=== PATIENT | male | born 1940 | race Caucasian/White ===

== ENCOUNTER 2021-07-25 19:09 | Emergency (ER) | payer MEDICARE, OTHER, SELFPAY ==
[2021-07-25] VITALS (14 sets, daily range): BP systolic 136–156; BP diastolic 63–73; PULSE 58–143; RESP 11–20; TEMP 36.4–36.5; O2SAT 93–100
--- NOTE | ~2021-07-25 | CT_ITS ---
EXAMINATION: CT cervical spine wo con DATE: 07/25/2021 20:39 INDICATION: Neck pain post head injury TECHNIQUE: Computed tomography (CT) of the cervical spine was performed without intravenous contrast. Automated exposure control and iterative reconstruction technique were employed. The dose-length pro duct was 527.26 mGy-cm. COMPARISON: None FINDINGS: Alignment is normal. Anterior fusion at C6-C7. Posterior fusion on the right at C6-C7 and on the left at C5-C6. Vertebral body heights are normal. No acute fracture. Severe disc height loss at C4-C5. Mo derate disc height loss at the remaining cervical levels as well as at C7-T1 through T2-T3. Large ant erior endplate osteophytes from C2 through T3. Multilevel disc bulges and posterior disc osteophyte c omplexes throughout the cervical spine resulting in multilevel mild central canal stenosis. There is also moderate to severe uncovertebral and facet osteoarthritis throughout the cervical spine result i n moderate to severe neural foraminal stenosis on the right at C7-T1, moderate neural foraminal steno sis on the left at C3-C4 and C5-C6 and on the right at C4-C5 and mild throughout the remainder of the cervical spine. Atherosclerotic calcifications at the bilateral carotid bulbs. Cervical soft tissues are otherwise unremarkable. Mild emphysema at the apices of the lungs. IMPRESSION: 1. Severe cervical spondylosis. No acute osseous abnormality. Reviewed, dictated and finalized at location A. TRICIAN APPRENTICE
--- NOTE | ~2021-07-25 | CT_ITS ---
EXAMINATION: CT brain wo con DATE: 07/25/2021 20:39 INDICATION: Fall with posterior head injury TECHNIQUE: Computed tomography (CT) of the head was performed without intravenous contrast. Sagittal and coronal reconstructions were performed. The mA was adjusted according to patient size. Iterative reconstruction technique was employed. The dose-length product was 681.00 mGy-cm. COMPARISON: None FINDINGS: No fracture. 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 No acute intracranial hemorrhage, acute infarction or abnormal extra axial fluid collection. There is mild scattered white matter hypoattenuation consistent with chronic small vessel ischemic disease. Ventricles are normal and symmetric. No mass/mass effect. Multiple small foci of likely intravenous gas at the bilateral ca vernous sinus. Intracranial calcified cerebral atherosclerosis is noted. Changes of bilateral intraoc ular lens replacement. The orbits, paranasal sinuses and mastoid air cells are normal. IMPRESSION: 1. Small amount of likely intravenous gas at the cavernous sinus which may be related to intravenous catheter placement. Correlate with clinical history. 2. No fracture or acute intracranial process. 3. Small old lacunar infarct at the right peritrigonal white matter. Reviewed, dictated and finalized at location A. T OFFICER IMPRESSION: 1. Small amount of likely intravenous gas at the cavernous sinus which may be r elated to intravenous catheter placement. Correlate with clinical history. 2. No fracture or acute intracranial process. 3. Small old lacunar infarct at the right peritrigonal white matter.
--- NOTE | ~2021-07-25 | CT_ITS ---
EXAMINATION: CT thoracic spine wo con DATE: 07/25/2021 20:43 INDICATION: Thoracic spine pain post injury TECHNIQUE: Computed tomography (CT) of the thoracic spine was performed without intravenous contrast. Automated exposure control and iterative reconstruction technique were employed. The dose-length pro duct was 1460.10 mGy-cm. COMPARISON: None FINDINGS: Mild thoracic dextrocurvature. Sagittal alignment is normal. Anterior fusion at C6-C7. Vertebral body heights are normal. No acute fracture. Prominent anterior osteophytes throughout the thoracic, lower cervical and upper lumbar spine with solid anterior fusion from T4 through L2 consistent with diffus e idiopathic skeletal hyperostosis (DISH). Mild to moderate disc height loss throughout the thoracic spine. Multilevel moderate bilateral thoracic facet osteoarthritis. Mild central canal stenosis resul ting from small posterior endplate osteophytes and/or facet osteoarthritis at several levels in the t horacic spine most prominent at T11-T12. Multiple old right-sided rib fractures. Mild emphysema and m ild mosaic attenuation throughout both lungs consistent with subsegmental air trapping related to sma ll airway disease. Mild paravertebral atelectasis/scarring along the posterior medial right lower lob e adjacent to an likely related to the prominent endplate osteophytes. Atherosclerotic coronary arter y calcifications. Thoracic aorta is normal in caliber. No pathologically enlarged lymphadenopathy in the visualized thorax or upper abdomen. Couple hepatic calcific lesions consistent with old granuloma tous disease. Bilateral adrenal glands, pancreas and visualized portions of the gallbladder, spleen a nd left kidney are normal. 1.3 cm low-density right renal cyst. IMPRESSION: 1. Multiple old right rib fractures. No acute osseous abnormality. 2. Moderate thoracic spondylosis with bridging osteophytes from T4 through L2 consistent with diffuse idiopathic skeletal hyperostosis (DISH). Reviewed, dictated and finalized at location A. ITE CARE PROVIDER IMPRESSION: 1. Multiple old right rib fractures. No acute osseous abnormality. 2. Moderate thoracic spondylosis with bridging osteophytes from T4 through L2 c onsistent with diffuse idiopathic skeletal hyperostosis (DISH).
[2021-07-25 19:43] LABS: Glucose Point of Care 214 mg/dl (65-105)
--- NOTE | 2021-07-25 19:57 | ED.FALL ---
HPI - Fall General Chief Complaint: Fall Stated Complaint: fall Time Seen by Provider: 07/25/21 19:14 Source: patient Mode of arrival: ambulatory Limitations: no limitations History of Present Illness HPI Narrative: Patient is a 80-year-old male complaining of head, neck and upper back pain, 8 out of 10, dull, nonradiating after he missed a step going down 3 step stairs prior to arrival. Patient states that he has Parkinson's and his gait is usually unsteady and that is the reason why he fell. Patient denies any loss of consciousness. Patient states that he was able to stand up with the help of his and ambulate after the fall. Patient denies any symptoms prior to the fall. Patient denies any chest pain, abdominal pain, pelvic pain, hip pain or any other extremity pain/injury. Related Data Allergies Allergy/AdvReac Type Severity Reaction Status Date / Time No Known Allergies Allergy Verified 07/25/21 19:44 Review of Systems Review of Systems: All systems reviewed & are unremarkable except as noted in HPI and below Constitutional: Constitutional: Denies body ache(s), Denies chills, Denies excessive sweating, Denies fatigue, Denies fever(s), Denies headache(s), Denies lethargy, Denies malaise, Denies weakness and Denies weight loss Eyes: Eyes: Denies blurry vision, Denies change in vision and Denies loss of vision ENT: Denies dizziness, Denies ear discharge, Denies headache(s), Denies lip swelling, Denies epistaxis, Denies nasal congestion, Denies throat swelling and Denies tongue swelling Cardiovascular: Cardiovascular: Denies chest pain, Denies chest pain at rest, Denies chest pain with activity, Denies diaphoresis, Denies rapid heart rate, Denies edema, Denies irregular heart rhythm, Denies lightheadedness, Denies palpitations, Denies dyspnea and Denies dyspnea on exertion Respiratory: Respiratory: Denies chest congestion, Denies cough, Denies hemoptysis, Denies dyspnea and Denies dyspnea on exertion Gastrointestinal: Gastrointestinal: Denies abdominal pain, Denies melena, Denies hematochezia, Denies diarrhea, Denies nausea, Denies vomiting and Denies hematemesis Musculoskeletal: Musculoskeletal: Denies abnormal gait, Denies deformity, Denies joint swelling, Denies limited range of motion and Denies numbness Neurologic: Denies Abnormal speech present, Denies confusion, Denies dizziness, Denies headache(s), Denies focal weakness, Denies loss of vision, Denies numbness, Denies Other visual disturbances, Denies Sensory deficit (Neuro) and Denies weakness Psychiatric: Psychiatric: Denies confusion, Denies depression, Denies auditory hallucinations, Denies homicidal ideation and Denies suicidal ideation Endocrine: Endocrine: Denies cold intolerance, Denies excessive sweating, Denies fatigue, Denies heat intolerance and Denies palpitations Hematologic/Lymphatic: Hematologic/Lymphatic: Denies easy bleeding and Denies easy bruising Allergic/Immunologic: Allergic/Immunologic: Denies lip swelling, Denies throat swelling and Denies tongue swelling PMFSH Comments Past medical history: Parkinson's disease, hypertension, diabetes Family history: Unknown Social history: Non-smoker no EtOH use, lives at home with . Exam Const: General: cooperative, healthy appearing, comfortable, no acute distress, well developed, alert and awake; No confusion Orientation/consciousness: oriented to person, oriented to place, oriented to time, patient oriented x3 and No confusion Limitations: no limitations HENMT: Ears: hearing grossly normal bilaterally, TM normal on the right and TM normal on the left General nose exam: Normal external nose present, Normal nares present and No nasal discharge present Face and sinus: normal facial exam Mouth: Yes Normal oral and palatal mucosa present, Yes lip normal, Yes tongue normal and Yes oropharynx normal Throat: posterior oropharynx normal, tonsils normal and uvula midline Other: Abrasion right frontal head
[2021-07-25] MEDS: ONDANSETRON INJ 4 MG/2 ML VIAL IV PUSH (20:14)
[2021-07-25] MEDS: HYDROmorphone HCL INJ (*CRX) 1 MG/ML SYR 0.5 MG IV PUSH (20:14)
[2021-07-25] MEDS: HYDROcodone/acetaminophen (*CRX) 5-325 MG TABLET 1 TAB PO (22:21)
== END 2021-07-25 22:59 | disposition home or self-care (01) ==
PROVIDERS: Emergency Provider Emergency Medicine
DX: S09.90XA Unspecified injury of head, initial encounter (principal); S16.1XXA Strain of muscle, fascia and tendon at neck level, initial encounter; S29.012A Strain of muscle and tendon of back wall of thorax, initial encounter; G20 Parkinson's disease; I10 Essential (primary) hypertension; E11.9 Type 2 diabetes mellitus without complications; W10.9XXA Fall (on) (from) unspecified stairs and steps, initial encounter; M47.812 Spondylosis without myelopathy or radiculopathy, cervical region; M47.814 Spondylosis without myelopathy or radiculopathy, thoracic region
CPT/HCPCS: 70450; 72125; 72128; 82948; 96374; 96375; 99284; A9270; J1170; J2405

== ENCOUNTER 2021-09-23 10:47 | Emergency (ER) | payer MEDICARE, OTHER, SELFPAY ==
--- NOTE | ~2021-09-23 | XR_ITS ---
EXAMINATION: XR chest 2V DATE: 09/23/2021 11:40 INDICATION: Shortness of breath TECHNIQUE: PA and lateral views of the chest are obtained. COMPARISON: None available FINDINGS: Cardiomegaly is noted. There is a mild diffuse interstitial pattern. There are small pleura l effusions. No pneumothorax is identified. There are bridging osteophytes at multiple levels in the spine, consistent with diffuse idiopathic skeletal hyperostosis (DISH). IMPRESSION: 1. Cardiomegaly with mild pulmonary edema. 2. Small pleural effusions. Reviewed, dictated and finalized at location B.
--- NOTE | 2021-09-23 10:53 | ED.URI ---
HPI - URI/Sore Throat General Chief Complaint: Upper Respiratory Infection Stated Complaint: shortness of breath,cough, wheezing Time Seen by Provider: 09/23/21 10:55 Source: patient, family and RN notes reviewed History of Present Illness HPI Narrative: Patient is a 80-year-old man who presents to the urgent care with his spouse with complaints of wheezing, shortness of breath and fatigue since Sunday. Spouse states that she has been using Vicks throughout the day without much relief. States that the wheezing is worse at night when he lays down. Patient denies of any fever, nausea, vomiting or chest pain. Spouse states that they were at their PCP last within normal checkup. States that they done a COVID test at home, which was negative. Denies of any ill contacts. Patient has been COVID vaccinated. No other acute complaints. No acute distress noted. Patient and spouse aware of the plan of care. Some parts of this dictation were generated by voice recognition software and may contain typographical and/or grammatical inaccuracies. Related Data Home Medications Medication Instructions Recorded Confirmed amlodipine-benazepril 1 cap PO DAILY 09/23/21 09/23/21 buspirone 10 mg PO TID 09/23/21 09/23/21 carbidopa-levodopa 1 tablet PO TID 09/23/21 09/23/21 cholecalciferol (vitamin D3) 75 mcg PO DAILY 09/23/21 09/23/21 clobetasol 1 applic TOPICAL BID 09/23/21 09/23/21 cyanocobalamin (vitamin B-12) 1,000 mcg PO DAILY 09/23/21 09/23/21 diclofenac sodium 4 g TOPICAL QID 09/23/21 09/23/21 digoxin 25 mcg PO DAILY 09/23/21 09/23/21 empagliflozin 12.5 mg PO DAILY 09/23/21 09/23/21 ezetimibe 10 mg PO DAILY 09/23/21 09/23/21 gabapentin 600 mg PO BID 09/23/21 09/23/21 glipizide 5 mg PO BID 09/23/21 09/23/21 hydrocodone-acetaminophen 1 tablet PO DAILY PRN 09/23/21 09/23/21 lidocaine 1 patch TOPICAL DAILY 09/23/21 09/23/21 lisinopril 40 mg PO DAILY 09/23/21 09/23/21 metformin 1,000 mg PO BID 09/23/21 09/23/21 metoprolol tartrate 12.5 mg PO BID 09/23/21 09/23/21 omeprazole 20 mg PO DAILY 09/23/21 09/23/21 sertraline 100 mg PO BID 09/23/21 09/23/21 tamsulosin 0.4 mg PO DAILY 09/23/21 09/23/21 Allergies Allergy/AdvReac Type Severity Reaction Status Date / Time No Known Allergies Allergy Verified 09/23/21 11:05 Review of Systems Review of Systems: CONSTITUTIONAL: Denies fever, chills, or sweats. EYES: Denies visual changes, redness, or discharge. ENT: Denies rhinorrhea, congestion, sore throat, or otalgia. CARDIOVASCULAR: Denies chest pain, palpitations, or edema. RESPIRATORY: Reports of cough, wheezing and dyspnea GASTROINTESTINAL: Denies abdominal pain, nausea, vomiting, or diarrhea. GENITOURINARY: Denies dysuria or hematuria. SKIN: Denies rash or itching. MUSCULOSKELETAL: Denies back pain, joint pain, or myalgia. NEUROLOGIC: Denies headache, numbness, or weakness. All other systems reviewed are negative, except as documented in HPI. [facility] Past Medical History Medical History (Updated 09/23/21 @ 17:26 by Anna Lester PA-C) Benign prostatic hyperplasia Gastroesophageal reflux disease Hyperlipidemia Hypertension Parkinsons disease Paroxysmal atrial fibrillation Prostate cancer Type 2 diabetes mellitus Surgical History Surgical History (Updated 09/23/21 @ 17:25 by Anna Lester PA-C) History of shoulder surgery History of spinal surgery Social History Social History (Updated 09/23/21 @ 13:28 by Sriram Anthony DO) Smoking status: Never smoker Alcohol intake: current Last use: only drinks 1X every 6mo Spiritual care concerns: No Comments At the time of my signature, I reviewed and agree with the nursing past medical, surgical, social, and family history. There is no relevant family history pertinent to the patient complaint. Exam Narrative: GENERAL: This is a well-nourished, well-developed patient. Appears fatigued and easily exacerbated on ambulation HEAD: normocephalic, atraumatic.
[2021-09-23 11:16] VITALS: BP 107/63; PULSE 112; RESP 22; TEMP 35.9; O2SAT 93
== END 2021-09-23 12:02 | disposition short-term general hospital (02) ==
PROVIDERS: Emergency Provider Nurse Practitioner Family
DX: J81.0 Acute pulmonary edema (principal); E78.5 Hyperlipidemia, unspecified; I10 Essential (primary) hypertension; I48.0 Paroxysmal atrial fibrillation; E11.9 Type 2 diabetes mellitus without complications; G20 Parkinson's disease
CPT/HCPCS: 71046; 87804; 99213; G0463

== ENCOUNTER 2021-09-23 12:25 | Inpatient (IN) | payer MEDICARE, OTHER, SELFPAY ==
[2021-09-23] VITALS (13 sets, daily range): BP systolic 99–157; BP diastolic 57–97; PULSE 85–129; RESP 19–24; TEMP 36.4–36.8; O2SAT 88–98; BMI 38.7
--- NOTE | ~2021-09-23 | US_ITS ---
EXAMINATION: US renal BI DATE: 09/25/2021 10:19 INDICATION: Hematuria, passing clots TECHNIQUE: Multiple grayscale and Doppler ultrasound images of the kidneys were obtained. COMPARISON: None. FINDINGS: The right kidney measures 12.5 x 5.8 x 5.6 cm. The left kidney measures 13.6 x 5 x 6.1 cm a nd contains a 3.9 cm cyst. The kidneys demonstrate normal parenchymal echogenicity. There is no hydro nephrosis. There is a Durand catheter in the bladder. There is hyperechoic material measuring approxim ately 4.1 cm surrounding the catheter. IMPRESSION: 1. Echogenic material surrounding the Durand catheter in the bladder, likely hematoma. Reviewed, dictated and finalized at location A. IMPRESSION: 1. Echogenic material surrounding the Durand catheter in the bladder, likely hem atoma.
--- NOTE | ~2021-09-23 | XR_ITS ---
EXAMINATION: XR barium swallow modified DATE: 09/24/2021 09:59 INDICATION: Dysphagia, coughing with eating TECHNIQUE: Modified barium esophagram was performed by myself to administered fluoroscopy, in conjun ction with speech pathologist who administered barium in varying consistencies as per speech patholog ist documentation. This was recorded on tape. A single fluoroscopic spot image was recorded. The DAP for this procedure was 2.386 Gycm2. Fluoroscopy exposure time was 2.5 minutes. FINDINGS: Oral stage: Adequate function. Pharyngeal phase: Adequate function. Laryngeal penetration: None. Aspiration: None. Laryngeal sensitivity: Not applicable. IMPRESSION: Unremarkable modified barium swallow. Please refer to speech pathologist findings and spe [facility] feeding recommendations. Reviewed, dictated and finalized at location A. IMPRESSION: Unremarkable modified barium swallow. Please refer to speech pathol ogist findings and specific feeding recommendations.
--- NOTE | ~2021-09-23 | CT_ITS ---
EXAMINATION: CTA chest PE protocol DATE: 09/23/2021 15:03 INDICATION: Pulmonary embolism TECHNIQUE: Computed tomography (CT) pulmonary angiogram of the chest was performed with 100 mL Omnipa que-350 intravenous contrast. Additional 3D reconstructions utilizing coronal maximum intensity proje ction (MIP) were performed. Automated exposure control and iterative reconstruction technique were em ployed. The dose-length product was 1020.51 mGy-cm. COMPARISON: None FINDINGS: Excellent contrast opacification of the pulmonary arteries. There is mild streak artifact from dense contrast in the superior vena cava and right atrium. Mild scattered respiratory motion artifact most prominent at the lower lung zones where it decreases sensitivity in the basilar subsegmental pulmonar y arteries. No pulmonary embolism. No pneumonia. Mild smooth septal line thickening at the lung bases consistent with minimal pulmonary edema. Very small right and trace left pleural effusions. Heart si ze is normal. Moderate-sized pericardial effusion. Atherosclerotic coronary artery calcification. Tho racic aorta is normal in caliber with no dissection. No pathologically enlarged thoracic lymphadenopa thy. Visualized upper abdomen is unremarkable. 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 Heterotopic o ssification along the right coracoclavicular ligament likely sequela of old trauma. There are also se veral old healed right rib fracture deformities. IMPRESSION: 1. No pulmonary embolism. 2. Minimal pulmonary edema at the lung bases with very small right and tiny left pleural effusions. 3. Moderate size pericardial effusion. Reviewed, dictated and finalized at location A. IMPRESSION: 1. No pulmonary embolism. 2. Minimal pulmonary edema at the lung bases with very small right and tiny lef t pleural effusions. 3. Moderate size pericardial effusion.
--- NOTE | 2021-09-23 12:32 | ECG_ITS ---
Measurements Intervals [place] Rate: 91 P: IN: 0 QRS: 27 QRSD: 106 T: -4 QT: 402 QTc: 497 Interpretive Statements ATRIAL FLUTTER/TACHYCARDIA LOW QRS VOLTAGE IN PRECORDIAL LEADS BASELINE ARTIFACT- I, AVL, V3-V6 ABNORMAL ECG Electronically Signed On 09-23-2021 12:48:27 CDT by Felton Esquivel D.O.
[2021-09-23 13:15] LABS: Basophils Percent Auto 0.2 % (0.2-1.2); Eosinophils Absolute Auto 0.2 K/mm3 (0-0.3); Eosinophils Percent Auto 1.4 % (0-4.4); Hematocrit 37.7 % (42.0-52.0); Hemoglobin 11.7 g/dL (14.0-18.0); Immature Granulocyte Absolute 0.16 K/mm3 (0.00-0.031); Lymphocytes Absolute Auto 0.67 K/mm3 (0.9-3.2); Lymphocytes Percent Auto 4.1 % (18.3-44.2); Mean Corpuscular Hemoglobin 28.5 pg (26-34); Mean Corpuscular Volume 91.7 fl (80-100); Monocytes Absolute Auto 0.6 K/mm3 (0.1-0.6); Monocytes Percent Auto 3.6 % (2.6-8.5); Neutrophils Absolute Auto 14.6 K/mm3 (1.3-6.7); Neutrophils Percent Auto 89.7 % (45.5-73.1); Platelet Count Result 349 k/mm3 (150-375); Red Blood Count 4.11 M/mm3 (4.6-6.20); Red Cell Distribution Width 14.4 % (11.5-14.5); White Blood Count 16.3 K/mm3 (4.5-10.0)
[2021-09-23 13:25] LABS: Alanine Aminotransferase 14 U/L (4-50); Albumin Level 3.9 g/dL (3.5-5.1); Alkaline Phosphatase 129 U/L (38-126); Anion Gap 10 mmol/L (8-16); Aspartate Amino Transferase 26 U/L (17-59); Bilirubin,Total 0.8 mg/dL (0.2-1.3); Blood Urea Nitrogen 35 mg/dL (9-20); Calcium 9.7 mg/dL (8.4-10.2); Carbon Dioxide 23 mmol/L (22-30); Chloride 105 mmol/L (98-107); Estimated CRCL calculation 50 ml/min; Estimated Glomerular Filt Rate 53; Glucose 184 mg/dL (65-110); Potassium 5.2 mmol/L (3.4-5.0); Sodium 138 mmol/L (137-145)
[2021-09-23 13:27] LABS: INR 1.3; Prothrombin Time 15.7 Seconds (11.1-14.7)
--- NOTE | 2021-09-23 13:27 | ED.SOB ---
HPI - SOB/Dyspnea General Chief Complaint: Shortness of Breath/Dyspnea Stated Complaint: diff breathing Time Seen by Provider: 09/23/21 13:03 Source: RN notes reviewed History of Present Illness HPI Narrative: Patient presents emergency room from home for shortness of breath. Patient states he been feeling short of breath for the past 4 days states that shortness of breath is worse with exertion states is associate with a cough this been nonproductive. He denies any fevers or chills, chest pain, abdominal pain nausea vomiting or any other symptoms. Denies any swelling of his legs. He denies any history of CHF or COPD.. He gone to urgent care today chest x-ray did show questionable pulmonary edema and sent to the ER for further evaluation Related Data Home Medications Medication Instructions Recorded Confirmed amlodipine-benazepril 1 cap PO DAILY 09/23/21 09/23/21 buspirone 10 mg PO TID 09/23/21 09/23/21 carbidopa-levodopa 1.5 tablet PO TID 09/23/21 09/23/21 cholecalciferol (vitamin D3) 75 mcg PO DAILY 09/23/21 09/23/21 clobetasol 1 applic TOPICAL BID PRN 09/23/21 09/23/21 cyanocobalamin (vitamin B-12) 1,000 mcg PO DAILY 09/23/21 09/23/21 diclofenac sodium 4 g TOPICAL QID 09/23/21 09/23/21 empagliflozin 12.5 mg PO DAILY 09/23/21 09/23/21 ezetimibe 10 mg PO DAILY 09/23/21 09/23/21 gabapentin 600 mg PO TID 09/23/21 09/23/21 glipizide 5 mg PO BID 09/23/21 09/23/21 hydrocodone-acetaminophen 1 tablet PO DAILY PRN 09/23/21 09/23/21 lidocaine 1 patch TOPICAL DAILY PRN 09/23/21 09/23/21 lisinopril 40 mg PO DAILY 09/23/21 09/23/21 metformin 1,000 mg PO BID 09/23/21 09/23/21 metoprolol tartrate 12.5 mg PO BID 09/23/21 09/23/21 omeprazole 20 mg PO QAM 09/23/21 09/23/21 sertraline 200 mg PO DAILY 09/23/21 09/23/21 tamsulosin 0.4 mg PO DAILY 09/23/21 09/23/21 Allergies Allergy/AdvReac Type Severity Reaction Status Date / Time No Known Allergies Allergy Verified 09/23/21 11:05 Review of Systems Review of Systems: Gen.: Denies fevers or chills ENT: Denies congestion Respiratory: HPI CV: Denies chest pain or palpitations GI: Denies abdominal pain nausea, emesis or diarrhea Musculoskeletal: Denies back pain or muscle pain Neuro: Denies numbness, tingling, weakness or focal weakness Skin: Denies rash Except as documented, all other systems reviewed and negative [facility] Past Medical History Medical History (Updated 09/23/21 @ 20:24 by Sriram Anthony DO) Benign prostatic hyperplasia Gastroesophageal reflux disease Hyperlipidemia Hypertension Parkinsons disease Paroxysmal atrial fibrillation Prostate cancer Type 2 diabetes mellitus Surgical History Surgical History (Updated 09/23/21 @ 17:25 by Anna Lester PA-C) History of shoulder surgery History of spinal surgery Family History Family History (Updated 09/23/21 @ 19:00 by Ruth Paulson RN) Mother Acute myocardial infarction Father Colon cancer Social History Social History (Updated 09/23/21 @ 13:28 by Sriram Anthony DO) Smoking packs per day: 2 Smoking cigarettes per day: 40.0 Years smoked: 25 Smoking pack-years: 50.00 Smoking status: Former smoker Smoking end date: 05/21/79 Alcohol intake: current Last use: only drinks 1X every 6mo Spiritual care concerns: No Exam Narrative: APPEARANCE: No acute distress, nontoxic, resting in bed EYES: EOMI HEENT: Normocephalic, atraumatic, OMM RESPIRATORY: No respiratory distress Clear to auscultation bilaterally with no rhonchi wheezing or rales. CARDIOVASCULAR: Regular rate and rhythm without murmurs rubs or gallops. ABDOMINAL: Soft, nontender, nondistended, no rebound or guarding MUSCULOSKELETAl: Moves all extremities. No clubbing, cyanosis 2+ edema the bilateral lower extremities. NEURO: Awake and alert. Following commands, speech normal, no focal deficits SKIN:: Warm, dry. No rashes lesions or abrasions PSYCHIATRIC: Normal affect/mood, Course Course Emergency Course:
[2021-09-23 13:28] LABS: Partial Thromboplastin Time 43.7 SECONDS (22.3-36.8)
[2021-09-23 13:38] LABS: NT Pro B Type Natriuretic Pept 1440 pg/mL (5-100); Troponin I < 0.012 ng/mL (0.000-0.034)
[2021-09-23 13:55] LABS: Digoxin < 0.4 ng/mL (0.8-2.0)
[2021-09-23 14:17] LABS: Lactic Acid Reflex 1.6 mmol/L (0.7-2.0)
[2021-09-23 14:42] LABS: SARS-CoV-2 RNA PCR Negative
--- NOTE | 2021-09-23 15:00 | PC.NURSE ---
No Cardiac beds at [facility]
--- NOTE | 2021-09-23 15:21 | ECHO_ITS ---
Patient Info Name: Dante Ayers Age: 80 years : 1940 Gender: Male Ht: 68 in Wt: 240 lbs BSA: 2.33 m2 HR: 84 bpm BP: 139 / 90 mmHg Heart Rhythm: Atrial Flutter Technical Quality: Fair Exam Date: 09/23/2021 3:49 PM Exam Location: [facility] Pulmonary Exam Room: ER 12 Patient Status: Emergency Admit Date: 09/23/2021 Staff Ordering Physician: Sriram Anthony DO Bag Bundler: Janelle Magallanes RDCS Attending Provider: Sriram Anthony DO Referring Physician: Gabrielle MADSEN; Exam Type: CA echo doppler color flow Study Info Indications - PERICARDIAL EFFUSION SOB Complete two-dimensional, color flow and Doppler transthoracic echocardiogram is performed. Summary 1. Complete two-dimensional, color flow and Doppler transthoracic echocardiogram is performed. 2. Left ventricular chamber dimension is normal. 3. Left ventricular systolic function is normal, estimated at 65-70%. 4. Right ventricular chamber dimension is normal. 5. No right ventricular diastolic collapse is seen. 6. Thickened pericardium with soft tissue density seen in the visceral pericardium. 7. No echocardiographic stigmata to suggest tamponade physiology. Left Ventricle Left ventricular chamber dimension is normal. Left ventricular systolic function is normal, estimated at 65-70%. The left ventricular diastolic function is normal. Right Ventricle Right ventricular chamber dimension is normal. No right ventricular diastolic collapse is seen. Left Atria Left atrial chamber dimension is normal. Right Atria Right atrial chamber dimension is normal. Aortic Valve The aortic valve is normal. Pulmonic Valve The pulmonic valve is not well visualized. Mitral Valve The mitral valve has normal leaflets. Tricuspid Valve The tricuspid valve leaflets are normal. Pericardium/Pleural The pericardium appears thickened pericardium. There is moderate circumferential pericardial effusion. Aorta The aortic root size at the sinus of Valsalva is normal. Left Ventricular Outflow Tract Name Value Normal LVOT 2D LVOT Diameter 2.1 cm LVOT Doppler LVOT Peak Gradient 3 mmHg LVOT Mean Gradient 2 mmHg LVOT VTI 16 cm LVOT VTI/AV VTI Ratio 0.7 LVOT Stroke Volume 58 ml LVOT CO 15.0 l/min LVOT CI 6.4 l/min/m2 Mitral Valve Name Value Normal MV Doppler MV Decel [place] 705 cm/s2 MV PHT 43 ms MV Area (PHT) 5.2 cm2 4.0-5.0 MV Diastolic Function MV E Peak Velocity 106 cm/s
--- NOTE | 2021-09-23 16:45 | PM.IMHP ---
H&P: HPI History of Present Illness Date/Time: 09/23/21 16:45 Chief Complaint: Shortness of breath. Narrative: This is a 80-year-old male with Parkinson's, hypertension, paroxysmal atrial fibrillation, and diabetes who presented to the emergency department via private vehicle from [facility] for evaluation of shortness of breath. He has had a mild cough, rarely productive of clear mucus, and progressive dyspnea on lesser and lesser exertion over the past 4 days. His recently got over a ?chest cold? and they thought perhaps he had caught something from her and so they went to [facility] today for evaluation. Chest x-ray showed cardiomegaly with mild pulmonary edema and he was sent to the ER where a chest CTA showed minimal pulmonary edema, small pleural effusions, and a moderate-sized pericardial effusion. He is being admitted in this setting for further treatment and evaluation. With further questioning, the patient was apparently diagnosed with atrial fibrillation/flutter in 1979 at which time he was started on digoxin (unclear if he was on anticoagulation at that time). About 1 month ago he was seen by his doctors [place] the [place] who questioned why he had been on digoxin for over 40 years and that medication was discontinued. He has not had any other change in medication recently. He is resting comfortably at this time and is eating dinner. He did cough a bit when taking a bite of his hamburger and goes on to say that he does occasionally have coughing episodes with eating but not frequently and he denies recent concerns for aspiration. He also denies fever and chills but endorses night sweats on occasion though that is not new. He denies headache, sinus congestion, sore throat, neck ache, rash, nausea, vomiting, and diarrhea. He also denies chest pain, pleuritic pain, palpitations, orthopnea, paroxysmal nocturnal dyspnea, and edema. Review of Systems Review of Systems: Twelve systems were reviewed. The patient sleeps an adjustable bed and his sleeps in a recliner nearby. Apparently he gets up sometimes in the middle of the night and he has had falls so she likes to stay close to him. Last fall was a little over a month ago and he was seen in the ER where he had a brain CT which was unremarkable. He has not had any falls since that time. He has periods of confusion however she reports that tonight he is much more confused than usual. No significant highs or lows with regards to his glucose recently. Except as documented, all other systems were reviewed and are negative. [facility] Past Medical History Medical History (Updated 09/23/21 @ 21:40 by Anna Lester PA-C) Benign prostatic hyperplasia Cirrhosis Gastroesophageal reflux disease Hepatitis C Treated in 2007. Hyperlipidemia Hypertension Parkinsons disease Paroxysmal atrial fibrillation Prostate cancer Status post radiation seed implants. Type 2 diabetes mellitus Surgical History Surgical History (Updated 09/23/21 @ 21:40 by Anna Lester PA-C) History of bilateral cataract extraction History of shoulder surgery History of spinal surgery Lumbar and cervical fusions. Family History Family History Mother Acute myocardial infarction Father Colon cancer Social History Social History (Updated 09/23/21 @ 21:41 by Anna Lester PA-C) Social History: Surrogate decision maker: Giovana Ayers, . Code status: Full code. Smoking packs per day: 2 Smoking cigarettes per day: 40.0 Years smoked: 25 Smoking pack-years: 50.00 Smoking status: Former smoker Smoking end date: 05/21/79 Alcohol intake: current Alcohol use details: Very infrequent alcohol use. Additional living arrangements comments: The patient lives with his in [place]. 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 Spiritual care concerns: No Meds Home Medications and Allergies Home
--- NOTE | 2021-09-23 17:50 | ADMGEN ---
This patient, Dante Ayers, was admitted to IMU Room 214-01. Patient/family oriented to hospital policies and general routines including ID bracelet, bed and alarms, visiting hours, pain management, procedures, bathroom and other care routines, personal items, smoking policy, room service/diet, and visiting hours. Information on how to activate the Rapid Response Team has been discussed. Patient/Family are encouraged to report perceived risks to care and to ask questions if they do not understand what they are told or what they should do.
--- NOTE | 2021-09-23 18:09 | ADMGEN ---
This patient, Dante Ayers, was admitted to IMU Room 214-01 at 1735. Patient/family oriented to hospital policies and general routines including ID bracelet, bed and alarms, visiting hours, pain management, procedures, bathroom and other care routines, personal items, smoking policy, room service/diet, and visiting hours. Information on how to activate the Rapid Response Team has been discussed. Patient/Family are encouraged to report perceived risks to care and to ask questions if they do not understand what they are told or what they should do.
[2021-09-23 19:18] LABS: Troponin I < 0.012 ng/mL (0.000-0.034)
[2021-09-23 22:14] LABS: Ammonia < 9 umol/L (9-30)
[2021-09-23 22:16] LABS: Anion Gap 8 mmol/L (8-16); Blood Urea Nitrogen 32 mg/dL (9-20); Calcium 9.4 mg/dL (8.4-10.2); Carbon Dioxide 26 mmol/L (22-30); Chloride 103 mmol/L (98-107); Estimated CRCL calculation 56 ml/min; Estimated Glomerular Filt Rate 59; Glucose 163 mg/dL (65-110); Magnesium 1.9 mg/dL (1.6-2.3); Sodium 137 mmol/L (137-145)
[2021-09-23 22:27] LABS: Troponin I < 0.012 ng/mL (0.000-0.034)
[2021-09-23 23:01] LABS: Thyroid Stimulating Hormone Reflex 0.644 uIU/mL (0.465-4.68)
[2021-09-23] MEDS: METOPROLOL TARTRATE 12.5 MG TABLET PO (23:10)
[2021-09-23] MEDS: GABAPENTIN 300 MG CAPSULE 600 MG PO (23:11)
[2021-09-23] MEDS: FUROSEMIDE INJ 40 MG/4 ML VIAL 20 MG IV PUSH (23:13)
[2021-09-24] VITALS (14 sets, daily range): BP systolic 104–138; BP diastolic 57–76; PULSE 75–116; RESP 20–24; TEMP 36.4–36.8; O2SAT 94–98
[2021-09-24 01:15] LABS: Appearance Urine Clear (Clear); Bacteria Urine Trace /hpf; Bilirubin Urine Negative (Negative); Blood Urine 1+ (Negative); Color Urine Yellow (Yellow); Glucose Urine UA 3+ mg/dL (Negative); Ketones Urine Negative (Negative); Leukocyte Esterase Ur Negative LEU/UL (Negative); Nitrate Urine Negative (Negative); Protein Urine Negative (Negative); Squamous Epithelial Cell Urine Rare /hpf (Few); Urobilinogen Urine 0.2 mg/dL (<2.0); WBC Urine 0-3 /hpf
[2021-09-24 01:16] LABS: Add Urine Microscopic? YES
[2021-09-24 05:27] LABS: Basophils Absolute Auto 0.1 K/mm3 (0.0-0.1); Basophils Percent Auto 0.4 % (0.2-1.2); Eosinophils Absolute Auto 0.3 K/mm3 (0-0.3); Eosinophils Percent Auto 2.2 % (0-4.4); Hematocrit 34.6 % (42.0-52.0); Hemoglobin 11.1 g/dL (14.0-18.0); Immature Granulocyte Absolute 0.12 K/mm3 (0.00-0.031); Immature Granulocyte Percent A 0.9 % (0-0.5); Lymphocytes Absolute Auto 1.41 K/mm3 (0.9-3.2); Lymphocytes Percent Auto 10.5 % (18.3-44.2); Mean Corpuscular HGB Conc 32.1 g/dl (32-36); Mean Corpuscular Hemoglobin 28.4 pg (26-34); Mean Corpuscular Volume 88.5 fl (80-100); Mean Platelet Volume 9.6 fl (7.4-10.4); Monocytes Absolute Auto 0.7 K/mm3 (0.1-0.6); Monocytes Percent Auto 5.1 % (2.6-8.5); Neutrophils Absolute Auto 10.8 K/mm3 (1.3-6.7); Neutrophils Percent Auto 80.9 % (45.5-73.1); Platelet Count Result 357 k/mm3 (150-375); Red Blood Count 3.91 M/mm3 (4.6-6.20); Red Cell Distribution Width 14.6 % (11.5-14.5); White Blood Count 13.4 K/mm3 (4.5-10.0)
[2021-09-24 05:43] LABS: Alanine Aminotransferase 27 U/L (4-50); Albumin Level 3.9 g/dL (3.5-5.1); Alkaline Phosphatase 117 U/L (38-126); Anion Gap 10 mmol/L (8-16); Aspartate Amino Transferase 23 U/L (17-59); Bilirubin,Total 0.8 mg/dL (0.2-1.3); Blood Urea Nitrogen 30 mg/dL (9-20); Calcium 9.5 mg/dL (8.4-10.2); Carbon Dioxide 24 mmol/L (22-30); Chloride 103 mmol/L (98-107); Estimated CRCL calculation 61 ml/min; Estimated Glomerular Filt Rate > 60; Glucose 149 mg/dL (65-110); Potassium 4.6 mmol/L (3.4-5.0); Sodium 137 mmol/L (137-145)
[2021-09-24 08:32] LABS: Glucose Point of Care 125 mg/dl (65-105)
--- NOTE | 2021-09-24 09:41 | PCSTNOTE ---
Please refer to the Modified Barium Swallow Evaluation in the EMR.
[2021-09-24] MEDS: CARBIDOPA/LEVODOPA 25/100 MG TABLET 1 TABLET PO ×3 (10:55→17:42)
[2021-09-24] MEDS: CARBIDOPA/LEVODOPA 12.5/50 MG TABLET 1 TABLET PO ×3 (10:55→17:41)
[2021-09-24] MEDS: METOPROLOL TARTRATE 12.5 MG TABLET PO ×2 (10:56→20:14)
[2021-09-24] MEDS: busPIRone HCL 10 MG TABLET PO ×3 (10:56→17:42)
[2021-09-24] MEDS: CYANOCOBALAMIN 1,000 MCG TABLET 1000 MCG PO (10:56)
[2021-09-24] MEDS: GABAPENTIN 300 MG CAPSULE 600 MG PO ×3 (10:57→17:41)
[2021-09-24] MEDS: CHOLECALCIFEROL 1,000 UNITS TABLET 3000 UNITS PO (10:57)
[2021-09-24] MEDS: glipiZIDE 5 MG TABLET PO ×2 (10:57→17:41)
[2021-09-24] MEDS: EZETIMIBE 10 MG TABLET PO (10:57)
--- NOTE | 2021-09-24 10:57 | WPDURCON ---
Assessment and Plan Assessment and plan (1) Urethral stricture: Code(s): N35.919 - Unspecified urethral stricture, male, unspecified site Status: Acute Assessment and Plan: Urethral stricture/bladder neck contracture -> dilated to 18F at bedside. Catheter should stay 48-hours / can go home with it if, otherwise, ready for discharge. Discussed with pt. at home. Urology Consult Note HPI Date Seen: 09/24/21 Requesting Physician: Franco Zarco MD Primary Care Provider: [facility] Consult Narrative Narrative: Dante Ayers is a 80 year old male, s/p brachytherapy for prostate cancer in remote past, admitted with SOB. Since admission, his difficulty voiding has progressed to near retention since admission. Review of Systems Cardiovascular: Cardiovascular: Denies chest pain, Denies lightheadedness, Denies palpitations and Denies dyspnea Respiratory: Respiratory: Denies dyspnea Gastrointestinal: Gastrointestinal: Denies diarrhea, Denies nausea and Denies vomiting Genitourinary: Genitourinary: Denies hematuria, Reports oliguria and Denies dysuria Endocrine: Endocrine: Denies palpitations [facility] Past Medical History Medical History (Updated 09/24/21 @ 11:03 by Jose Parr MD) Benign prostatic hyperplasia Cirrhosis Gastroesophageal reflux disease Hepatitis C Treated in 2007. Hyperlipidemia Hypertension Parkinsons disease Paroxysmal atrial fibrillation Prostate cancer Status post radiation seed implants. Type 2 diabetes mellitus Surgical History Surgical History (Updated 09/23/21 @ 21:40 by Anna Lester PA-C) History of bilateral cataract extraction History of shoulder surgery History of spinal surgery Lumbar and cervical fusions. Family History Family History Mother Acute myocardial infarction Father Colon cancer Social History Social History (Updated 09/23/21 @ 21:41 by Anna Lester PA-C) Social History: Surrogate decision maker: Giovana Ayers, . Code status: Full code. Smoking packs per day: 2 Smoking cigarettes per day: 40.0 Years smoked: 25 Smoking pack-years: 50.00 Smoking status: Former smoker Smoking end date: 05/21/79 Alcohol intake: current Alcohol use details: Very infrequent alcohol use. Additional living arrangements comments: The patient lives with his in [place]. 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 Spiritual care concerns: No Meds Home Medications and Allergies Home Medications Medication Instructions Recorded Confirmed Type amlodipine-benazepril 1 cap PO DAILY 09/23/21 09/23/21 History buspirone 10 mg PO TID 09/23/21 09/23/21 History carbidopa-levodopa 1.5 tablet PO TID 09/23/21 09/23/21 History cholecalciferol (vitamin D3) 75 mcg PO DAILY 09/23/21 09/23/21 History clobetasol 1 applic TOPICAL BID PRN 09/23/21 09/23/21 History cyanocobalamin (vitamin B-12) 1,000 mcg PO DAILY 09/23/21 09/23/21 History diclofenac sodium 4 g TOPICAL QID 09/23/21 09/23/21 History empagliflozin 12.5 mg PO DAILY 09/23/21 09/23/21 History ezetimibe 10 mg PO DAILY 09/23/21 09/23/21 History gabapentin 600 mg PO TID 09/23/21 09/23/21 History glipizide 5 mg PO BID 09/23/21 09/23/21 History hydrocodone-acetaminophen 1 tablet PO DAILY PRN 09/23/21 09/23/21 History lidocaine 1 patch TOPICAL DAILY PRN 09/23/21 09/23/21 History lisinopril 40 mg PO DAILY 09/23/21 09/23/21 History metformin 1,000 mg PO BID 09/23/21 09/23/21 History metoprolol tartrate 12.5 mg PO BID 09/23/21 09/23/21 History omeprazole 20 mg PO QAM 09/23/21 09/23/21 History sertraline 200 mg PO DAILY 09/23/21 09/23/21 History tamsulosin 0.4 mg PO DAILY 09/23/21 09/23/21 History Allergies Allergy/AdvReac Type Severity Reaction Status Date / Time No Known Allergies Allergy Verified 09/23/21 11:05 Vital Signs Vital Signs - 24 hr 0
[2021-09-24] MEDS: DICLOFENAC SODIUM 1% 100 GM GEL (*BKC) 1 APPLIC TOPICAL ×2 (10:58→14:28)
[2021-09-24] MEDS: EMPAGLIFLOZIN 25 MG TABLET 12.5 MG PO (10:58)
[2021-09-24] MEDS: TAMSULOSIN HCL 0.4 MG CAPSULE PO (10:59)
[2021-09-24] MEDS: LIDOCAINE HCL 2% GEL UROJET 10 ML PKG MUCOUS MEM (10:59)
[2021-09-24] MEDS: PANTOPRAZOLE 40 MG TABLET PO (10:59)
[2021-09-24] MEDS: SERTRALINE HCL 50 MG TABLET 200 MG PO (10:59)
--- NOTE | 2021-09-24 11:05 | P.OP_ITS ---
Procedure Note - Detailed Date of Procedure 09/24/21 Pre-op Diagnosis Urethral stricture Post-op Diagnosis Same Procedure Performed Cysto/urethral dilatation Surgeon Jose Parr MD Anesthesia Local Description of Procedure The patient was in his hospital room where he was prepped and draped in a routine sterile fashion while in a supine position. 2% viscous lidocaine was introduced intraurethrally. Cystoscopy was undertaken with a 16F flexible cystoscope. He had a tight bladder neck contracture without any appreciable prostate tissue. A 0.035 glidewire was advanced into the bladder. Using the disposable urethral dilators, I dilated the urethra and bladder neck from 10F - >18F F. A 16F Coude' catheter was placed to drainage. Urine Output 300 Drains Yes Packing No Pathology None sent Complications No immediate complications Condition Stable
--- NOTE | 2021-09-24 15:04 | PM.CNCAR ---
Assessment and Plan Additional Plan Assessment Acute on chronic CHF, possibly related to recent URTI vs discontinuation of digoxin A flutter RVR DM and dyslipidemia Plan Restart digoxin 0.25 mg daily Lasix 40 mg IV BID Cont metoprolol 12.5 mg BID if BP tolerate will add ACEI tomorrow History of Present Illness History of Present Illness Consult date/time: 09/24/21 15:04 Reason For Visit: CHF/atrial flutter/pericardial effusion Narrative: Patient presented with progressive SOB for 3 to 4 days present at rest and worse with mild activity, associated with LE swelling, wheezes and dry cough that is worse with laying flat. Patient has been on digoxin for 40 years and was recently discontinued by his physician about 2 weeks ago. recent URTI in family that resolved and he though he might had chest infection too. Hx has Hx of AF Review of Systems Review of Systems: All systems reviewed & are unremarkable except as noted in HPI and below PMFSH Past Medical History Medical History (Updated 09/24/21 @ 11:03 by Jose Parr MD) Benign prostatic hyperplasia Cirrhosis Gastroesophageal reflux disease Hepatitis C Treated in 2007. Hyperlipidemia Hypertension Parkinsons disease Paroxysmal atrial fibrillation Prostate cancer Status post radiation seed implants. Type 2 diabetes mellitus Surgical History Surgical History (Updated 09/23/21 @ 21:40 by Anna Lester PA-C) History of bilateral cataract extraction History of shoulder surgery History of spinal surgery Lumbar and cervical fusions. Family History Family History Mother Acute myocardial infarction Father Colon cancer Social History Social History (Updated 09/23/21 @ 21:41 by Anna Lester PA-C) Social History: Surrogate decision maker: Giovana Ayers, . Code status: Full code. Smoking packs per day: 2 Smoking cigarettes per day: 40.0 Years smoked: 25 Smoking pack-years: 50.00 Smoking status: Former smoker Smoking end date: 05/21/79 Alcohol intake: current Alcohol use details: Very infrequent alcohol use. Additional living arrangements comments: The patient lives with his in [place]. 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 Spiritual care concerns: No Meds Home Medications and Allergies Home Medications Medication Instructions Recorded Confirmed Type amlodipine-benazepril 1 cap PO DAILY 09/23/21 09/23/21 History buspirone 10 mg PO TID 09/23/21 09/23/21 History carbidopa-levodopa 1.5 tablet PO TID 09/23/21 09/23/21 History cholecalciferol (vitamin D3) 75 mcg PO DAILY 09/23/21 09/23/21 History clobetasol 1 applic TOPICAL BID PRN 09/23/21 09/23/21 History cyanocobalamin (vitamin B-12) 1,000 mcg PO DAILY 09/23/21 09/23/21 History diclofenac sodium 4 g TOPICAL QID 09/23/21 09/23/21 History empagliflozin 12.5 mg PO DAILY 09/23/21 09/23/21 History ezetimibe 10 mg PO DAILY 09/23/21 09/23/21 History gabapentin 600 mg PO TID 09/23/21 09/23/21 History glipizide 5 mg PO BID 09/23/21 09/23/21 History hydrocodone-acetaminophen 1 tablet PO DAILY PRN 09/23/21 09/23/21 History lidocaine 1 patch TOPICAL DAILY PRN 09/23/21 09/23/21 History lisinopril 40 mg PO DAILY 09/23/21 09/23/21 History metformin 1,000 mg PO BID 09/23/21 09/23/21 History metoprolol tartrate 12.5 mg PO BID 09/23/21 09/23/21 History omeprazole 20 mg PO QAM 09/23/21 09/23/21 History sertraline 200 mg PO DAILY 09/23/21 09/23/21 History tamsulosin 0.4 mg PO DAILY 09/23/21 09/23/21 History Allergies Allergy/AdvReac Type Severity Reaction Status Date / Time No Known Allergies Allergy Verified 09/23/21 11:05 Vital Signs Vital Signs - 24 hr 09/23/21 15:21 09/23/21 16:52 09/23/21 16:53 Temperature Pulse Rate 100 Respiratory Rate 22 H Blood Pressure 129/76 Pulse Oximetry 94 88 L 94 09/23/21 17:00 09/23/21 17:56 09/23/21 18:
[2021-09-24 16:23] LABS: Glucose Point of Care 119 mg/dl (65-105)
--- NOTE | 2021-09-24 17:36 | PM.IMPN ---
Progress Note: A&P Assessment and Plan (1) Urethral stricture: Code(s): N35.919 - Unspecified urethral stricture, male, unspecified site Status: Acute (2) Acute respiratory failure with hypoxia: Code(s): J96.01 - Acute respiratory failure with hypoxia Status: Acute (3) CHF (congestive heart failure): Code(s): I50.9 - Heart failure, unspecified Status: Acute (4) Type 2 diabetes mellitus: Code(s): E11.9 - Type 2 diabetes mellitus without complications Status: Acute (5) Cirrhosis: Code(s): K74.60 - Unspecified cirrhosis of liver Status: Acute (6) Atrial flutter: Code(s): I48.92 - Unspecified atrial flutter Status: Acute Additional Plan # urethral stricture # urinary retention - unable to place Durand catheter, patient appears to have stricture from his history of prostate cancer and radiation - urology consulted who did bedside cystoscopy, ureteral dilation, subsequently coude catheter placed - patient's urine was bloody after procedure which is expected - will repeat labs tomorrow morning - continue Flomax # concern for aspiration - patient is coughing after every bite of food -swallow study today # acute on chronic congestive heart failure with preserved ejection fraction - patient started on jardiance - continue diuresis IV Lasix 40 mg IV b.i.d. - echocardiogram 09/23/2021: LVEF 65-70%, normal diastolic function - thickened pericardium soft tissue density seen visceral pericardium, no sign of tamponade # chronic atrial flutter - cardiology consulted - digoxin restarted - continue metoprolol tartrate # other chronic conditions -Parkinson's: Continue home carbidopa levodopa - anxiety/depression: Continue sertraline, BuSpar - type 2 diabetes: Continue glipizide - peripheral neuropathy: Continue gabapentin - hyperlipidemia: Continue Zetia - GERD: Protonix Diet: heart healthy DVT prophylaxis: SCD Code status: full code Disposition: Will downgrade to med/tele, continue diuresis, likely greater than 3 days hospitalization Time Spent With Patient Time with patient: 25 - 35 minutes Subjective Date/time seen: 09/24/21 17:36 Patient seen examined. Patient appears to have acute on chronic congestive heart failure. He has chronic atrial flutter rate controlled 82. Will continue diuresis IV Lasix 40 mg IV b.i.d.. Continue beta-christiano and digoxin had been restarted. Patient was then found to have distended bladder and nurse was unable to advance Durand catheter or coude catheter. Urologist was then consulted who did bedside cystoscopy with urethral stricture dilation and subsequent placement of coude catheter. Patient denies fever, chills, nausea, vomiting, diarrhea, chest pain, shortness a breath, abdominal pain. He endorses bladder fullness and urgency without being able to void. Review of Systems Review of Systems: All systems reviewed & are unremarkable except as noted in HPI and below Exam Narrative: - GENERAL: Pleasant male in no acute distress with slightly labored respiration - EYES: EOMI. Anicteric. - HENT: Moist mucous membranes. - LUNGS: Clear to auscultation bilaterally, no wheezing, rhonchi, or rales. coughing after every bite of food. Breathing comfortably on 2 L oxygen by nasal cannula - CARDIOVASCULAR: irregularly irregular. No murmur. No JVD. - ABDOMEN: Soft, non-tender and non-distended. No palpable masses. suprapubic fullness - EXTREMITIES: No edema. Peripheral pulses 2+. Non-tender. - NEUROLOGIC: No focal neurological deficits. CN II-XII grossly intact. - PSYCHIATRIC: Awake, Alert and oriented x 3. Appropriate mood and affect. - SKIN: No rashes or lesions. Warm. - LYMPH: No cervical lymphadenopathy. Objective Data Vital Signs Vital Signs: Vital Signs - 24 hr 09/23/21 17:56 09/23/21 18:00 09/23/21 20:00 Temperature 36.7 C 36.8 C Pulse Rate 95 101 H 127 H Respiratory Rate 24 H 22 H Blood Pressure 157
[2021-09-24] MEDS: FUROSEMIDE INJ 40 MG/4 ML VIAL IV PUSH (17:42)
[2021-09-24] MEDS: TOLNAFTATE 1% POWDER 45 GM BTL 1 APPLIC TOPICAL (20:14)
[2021-09-24] MEDS: WATER FOR IRRIGATION, STERILE 1,000 ML BOTTLE 1000 ML (20:14)
[2021-09-24 20:25] LABS: Glucose Point of Care 221 mg/dl (65-105)
[2021-09-25] VITALS (8 sets, daily range): BP systolic 110–142; BP diastolic 68–72; PULSE 80–117; RESP 16–22; TEMP 36.3–36.8; O2SAT 94–95
[2021-09-25 06:35] LABS: Basophils Percent Auto 0.2 % (0.2-1.2); Eosinophils Absolute Auto 0.2 K/mm3 (0-0.3); Eosinophils Percent Auto 1.7 % (0-4.4); Hematocrit 37.6 % (42.0-52.0); Hemoglobin 11.6 g/dL (14.0-18.0); Immature Granulocyte Absolute 0.08 K/mm3 (0.00-0.031); Immature Granulocyte Percent A 0.6 % (0-0.5); Lymphocytes Absolute Auto 1.24 K/mm3 (0.9-3.2); Lymphocytes Percent Auto 8.9 % (18.3-44.2); Mean Corpuscular HGB Conc 30.9 g/dl (32-36); Mean Corpuscular Hemoglobin 28.3 pg (26-34); Mean Corpuscular Volume 91.7 fl (80-100); Mean Platelet Volume 9.8 fl (7.4-10.4); Monocytes Absolute Auto 0.8 K/mm3 (0.1-0.6); Monocytes Percent Auto 5.5 % (2.6-8.5); Neutrophils Absolute Auto 11.6 K/mm3 (1.3-6.7); Neutrophils Percent Auto 83.1 % (45.5-73.1); Platelet Count Result 326 k/mm3 (150-375); Red Cell Distribution Width 14.6 % (11.5-14.5); White Blood Count 13.9 K/mm3 (4.5-10.0)
[2021-09-25 06:43] LABS: Anion Gap 9 mmol/L (8-16); Blood Urea Nitrogen 28 mg/dL (9-20); Calcium 9.4 mg/dL (8.4-10.2); Carbon Dioxide 25 mmol/L (22-30); Chloride 101 mmol/L (98-107); Estimated CRCL calculation 66 ml/min; Estimated Glomerular Filt Rate > 60; Glucose 136 mg/dL (65-110); Magnesium 1.8 mg/dL (1.6-2.3); Potassium 4.2 mmol/L (3.4-5.0); Sodium 135 mmol/L (137-145)
--- NOTE | 2021-09-25 07:50 | WPDUROPN2 ---
Progress Note: A&P Assessment and Plan (1) Urethral stricture: Code(s): N35.919 - Unspecified urethral stricture, male, unspecified site Status: Acute (2) Gross hematuria: Code(s): R31.0 - Gross hematuria Status: Acute Assessment and Plan: Gross hematuria overnight. Catheter draining but not irrigating freely. Will get bladder ultrasound to look for clot. Possible cysto/clot evacuation if develops symptomatic retention. Subjective Subjective Date/Time Seen: 09/25/21 07:50 Comfortable Urine dark blood, draining but not irrigating normally Review of Systems Cardiovascular: Cardiovascular: Denies chest pain, Denies lightheadedness, Denies palpitations and Denies dyspnea Respiratory: Respiratory: Denies dyspnea Gastrointestinal: Gastrointestinal: Denies diarrhea, Denies nausea and Denies vomiting Genitourinary: Genitourinary: Denies hematuria and Denies dysuria Endocrine: Endocrine: Denies palpitations Exam Const: General: no acute distress Resp: Effort & Inspection: normal respiratory effort GI: Inspection: non-distended GI Palp: No abdominal tenderness and No Guarding due to palpation present (GI) Auscultation: normal bowel sounds Objective Data Vital Signs Vital Signs: Vital Signs - 24 hr 09/24/21 08:00 09/24/21 10:00 09/24/21 10:56 Temperature 98.0 F Pulse Rate 81 94 113 H Respiratory Rate 20 Blood Pressure 134/76 Pulse Oximetry 98 09/24/21 12:00 09/24/21 14:00 09/24/21 16:00 Temperature 98.2 F 97.6 F Pulse Rate 86 88 111 H Respiratory Rate 24 H 24 H Blood Pressure 127/69 138/67 Pulse Oximetry 97 96 09/24/21 18:00 09/24/21 20:00 09/24/21 20:14 Temperature Pulse Rate 106 H 114 H 108 H Respiratory Rate Blood Pressure Pulse Oximetry 09/24/21 20:52 09/25/21 00:00 09/25/21 04:00 Temperature 97.9 F Pulse Rate 113 H 86 85 Respiratory Rate 20 Blood Pressure 104/59 L Pulse Oximetry 98 Intake/Output Intake/Output: Intake & Output 09/22/21 09/23/21 09/24/21 09/25/21 23:59 23:59 23:59 23:59 Intake Total 100 920 300 Output Total 175 3700 800 Balance -75 -7560 -241 Meds/Results Medications: Active Medications Generic Name Dose Route Start Last Admin Trade Name Freq PRN Reason Stop Dose Admin Hydrocodone Bitart/Acetaminophen 1 tab 09/23/21 21:53 Hydrocodone/Acetaminophen (*Crx) 5-325 Mg Tablet PO DAILY PRN Pain (Scale Score 4-6) Buspirone HCl 10 mg 09/24/21 09:00 09/24/21 17:42 Buspirone Hcl 10 Mg Tablet PO 10 mg TID ILDA Administration Carbidopa/Levodopa 1 tablet 09/24/21 08:00 09/24/21 17:42 Carbidopa/Levodopa 25/100 Mg Tablet PO 1 tablet TIDWM ILDA Administration Carbidopa/Levodopa 1 tablet 09/24/21 08:00 09/24/21 17:41 Carbidopa/Levodopa 12.5/50 Mg Tablet PO 1 tablet TIDWM ILDA Administration Clobetasol Propionate 1 applic 09/23/21 21:53 Clobetasol Propionate 0.05% Oint 30 Gm TOPICAL BID PRN Pain, Mild Cyanocobalamin 1,000 mcg 09/24/21 09:00 09/24/21 10:56 Cyanocobalamin 1,000 Mcg Tablet PO 1,000 mcg DAILY ILDA Administration Dextrose 12.5 gm 09/23/21 21:55 Dextrose 50% 25 Gm/50 Ml Syringe IV PUSH PRN PRN Hypoglycemia Protocol Diclofenac Sodium 1 applic 09/24/21 09:00 09/24/21 20:14 Diclofenac Sodium 1% 100 Gm Gel (*Bkc) TOPICAL Not Given QID [facility] Digoxin 250 mcg 09/25/21 09:00 Digoxin 250 Mcg Tablet PO QAM [facility] Ezetimibe 10 mg 09/24/21 09:00 09/24/21 10:57 Ezetimibe 10 Mg Tablet PO 10 mg DAILY ILDA Administration Empagliflozin 12.5 mg 09/24/21 09:00 09/24/21 10:58 Empagliflozin 25 Mg Tablet PO 12.5 mg DAILY ILDA Administration Furosemide 40 mg 09/24/21 17:00 09/24/21 17:42 Furosemide Inj 40 Mg/4 Ml Vial IV PUSH 40 mg BID ILDA Administration Gabapentin 600 mg 09/23/21 22:15 09/24/21 17:41 Gabapentin 300 Mg Capsule PO 600 mg TID
[2021-09-25 08:22] LABS: Glucose Point of Care 142 mg/dl (65-105)
[2021-09-25] MEDS: SERTRALINE HCL 50 MG TABLET 200 MG PO (10:26)
[2021-09-25] MEDS: DIGOXIN 250 MCG TABLET PO (10:27)
[2021-09-25] MEDS: busPIRone HCL 10 MG TABLET PO ×3 (10:27→18:14)
[2021-09-25] MEDS: GABAPENTIN 300 MG CAPSULE 600 MG PO ×3 (10:28→18:13)
[2021-09-25] MEDS: FUROSEMIDE INJ 40 MG/4 ML VIAL IV PUSH ×2 (10:28→18:14)
[2021-09-25] MEDS: TAMSULOSIN HCL 0.4 MG CAPSULE PO (10:29)
[2021-09-25] MEDS: CARBIDOPA/LEVODOPA 12.5/50 MG TABLET 1 TABLET PO ×3 (10:29→18:13)
[2021-09-25] MEDS: CHOLECALCIFEROL 1,000 UNITS TABLET 3000 UNITS PO (10:29)
[2021-09-25] MEDS: PANTOPRAZOLE 40 MG TABLET PO (10:30)
[2021-09-25] MEDS: CARBIDOPA/LEVODOPA 25/100 MG TABLET 1 TABLET PO ×3 (10:30→18:16)
[2021-09-25] MEDS: EZETIMIBE 10 MG TABLET PO (10:30)
[2021-09-25] MEDS: CYANOCOBALAMIN 1,000 MCG TABLET 1000 MCG PO (10:30)
[2021-09-25] MEDS: METOPROLOL TARTRATE 12.5 MG TABLET PO ×2 (10:31→22:09)
[2021-09-25] MEDS: glipiZIDE 5 MG TABLET PO ×2 (10:31→18:15)
[2021-09-25] MEDS: CLOBETASOL PROPIONATE 0.05% OINT 30 GM 1 APPLIC TOPICAL (10:31)
[2021-09-25] MEDS: EMPAGLIFLOZIN 25 MG TABLET 12.5 MG PO (10:32)
[2021-09-25] MEDS: TOLNAFTATE 1% POWDER 45 GM BTL 1 APPLIC TOPICAL ×2 (10:32→22:09)
[2021-09-25] MEDS: DICLOFENAC SODIUM 1% 100 GM GEL (*BKC) 1 APPLIC TOPICAL ×3 (10:33→18:14)
[2021-09-25 16:51] LABS: Glucose Point of Care 217 mg/dl (65-105)
--- NOTE | 2021-09-25 17:55 | PM.PNCARD ---
Progress Note: A&P Additional Plan Assessment Acute on chronic CHF, possibly related to recent URTI vs discontinuation of digoxin A flutter RVR DM and dyslipidemia Plan Cont digoxin 0.25 mg daily Lasix 40 mg IV BID Cont metoprolol 12.5 mg BID Add lisinopril 5 mg daily Subjective Date/time seen: 09/25/21 17:55 Interval history: feels better today Review of Systems Review of Systems: All systems reviewed & are unremarkable except as noted in HPI and below Exam Const: General: comfortable and no acute distress Other: Able to lie flat HENMT: General nose exam: Normal nares present and no epistaxis Mouth: Yes moist mucous membranes Eyes: Sclera: sclerae normal Pupils: Equal, round and reactive pupils present Neck: Neck: supple and no JVD Carotids: no bruits Resp: Auscultation: rales (bilatreal basal) and lung sounds not diminished Other: No chest wall tenderness Cardio: Jugular venous distension: JVD Rate: abnormal rate Rhythm: abnormal rhythm Heart sounds: no gallops, no murmurs and no rubs GI: Auscultation: normal bowel sounds Skin: General skin exam: normal color, rashes and/or lesions noted and no erythema Other: Warm Neuro: Cranial nerves: Yes Equal, round and reactive pupils present Speech: normal speech Other: No obvious focal deficit or facial asymmetry Extrem: General: edema (bilateral) Other: Normal capillary refills Intact distal pulses. Objective Data Vital Signs Vital Signs: Vital Signs - 24 hr 09/24/21 18:00 09/24/21 20:00 09/24/21 20:14 Temperature Pulse Rate 106 H 114 H 108 H Respiratory Rate Blood Pressure Pulse Oximetry 09/24/21 20:52 09/25/21 00:00 09/25/21 04:00 Temperature 36.6 C Pulse Rate 113 H 86 85 Respiratory Rate 20 Blood Pressure 104/59 L Pulse Oximetry 98 09/25/21 08:00 09/25/21 10:27 09/25/21 10:31 Temperature 36.8 C Pulse Rate 85 80 86 Respiratory Rate 16 Blood Pressure 123/72 Pulse Oximetry 94 09/25/21 16:00 Temperature 36.3 C L Pulse Rate 92 Respiratory Rate 17 Blood Pressure 110/68 Pulse Oximetry 95 Intake/Output Intake/Output: Intake & Output 09/22/21 09/23/21 09/24/2109/25/22 23:59 23:59 23:59 23:59 Intake Total 100 920 540 Output Total 642 6986 7622 Balance -21 -2158 -3288 Meds/Results Medications: Active Medications Generic Name Dose Route Start Last Admin Trade Name Freq PRN Reason Stop Dose Admin Hydrocodone Bitart/Acetaminophen 1 tab 09/23/21 21:53 Hydrocodone/Acetaminophen (*Crx) 5-325 Mg Tablet PO DAILY PRN Pain (Scale Score 4-6) Buspirone HCl 10 mg 09/24/21 09:00 09/25/21 12:48 Buspirone Hcl 10 Mg Tablet PO 10 mg TID ILDA Administration Carbidopa/Levodopa 1 tablet 09/24/21 08:00 09/25/21 12:48 Carbidopa/Levodopa 25/100 Mg Tablet PO 1 tablet TIDWM ILDA Administration Carbidopa/Levodopa 1 tablet 09/24/21 08:00 09/25/21 12:48 Carbidopa/Levodopa 12.5/50 Mg Tablet PO 1 tablet TIDWM ILDA Administration Clobetasol Propionate 1 applic 09/23/21 21:53 09/25/21 10:31 Clobetasol Propionate 0.05% Oint 30 Gm TOPICAL 1 applic BID PRN Administration Pain, Mild Cyanocobalamin 1,000 mcg 09/24/21 09:00 09/25/21 10:30 Cyanocobalamin 1,000 Mcg Tablet PO 1,000 mcg DAILY ILDA Administration Dextrose 12.5 gm 09/23/21 21:55 Dextrose 50% 25 Gm/50 Ml Syringe IV PUSH PRN PRN Hypoglycemia Protocol Diclofenac Sodium 1 applic 09/24/21 09:00 09/25/21 12:49 Diclofenac Sodium 1% 100 Gm Gel (*Bkc) TOPICAL 1 applic QID ILDA Administration Digoxin 250 mcg 09/25/21 09:00 09/25/21 10:27 Digoxin 250 Mcg Tablet PO 250 mcg QAM ILDA Administration Ezetimibe 10 mg 09/24/21 09:00 09/25/21 10:30 Ezetimibe 10 Mg Tablet PO 10 mg DAILY ILDA Administration Empagliflozin 12.5 mg 09/24/21 09:00 09/25/21 10:32 Empagliflozin 25 Mg Tablet PO 12.5 mg DAILY ILDA Administration
--- NOTE | 2021-09-25 18:46 | PM.IMPN ---
Progress Note: A&P Assessment and Plan (1) Gross hematuria: Code(s): R31.0 - Gross hematuria Status: Acute (2) Urethral stricture: Code(s): N35.919 - Unspecified urethral stricture, male, unspecified site Status: Acute (3) Cirrhosis: Code(s): K74.60 - Unspecified cirrhosis of liver Status: Acute (4) Acute respiratory failure with hypoxia: Code(s): J96.01 - Acute respiratory failure with hypoxia Status: Acute (5) CHF (congestive heart failure): Code(s): I50.9 - Heart failure, unspecified Status: Acute Additional Plan # urethral stricture # urinary retention # yola hematuria - postop day 1 bedside cystoscopy urethral dilation - originally unable to place Durand catheter, patient appears to have stricture from his history of prostate cancer and radiation - patient's urine was bloody after procedure which is expected however now with yola hematuria may need CBI or clot evacuation - continue Flomax - renal and bladder ultrasounds as per Urology # concern for aspiration - patient is coughing after every bite of food - patient passed swallow study, no change in diet # acute on chronic congestive heart failure with preserved ejection fraction - patient started on jardiance - continue diuresis IV Lasix 40 mg IV b.i.d. - echocardiogram 09/23/2021: LVEF 65-70%, normal diastolic function - thickened pericardium soft tissue density seen visceral pericardium, no sign of tamponade - he is diuresing well -2.7L, will continue IV diuresis # chronic atrial flutter - cardiology consulted - digoxin restarted - continue metoprolol tartrate # other chronic conditions -Parkinson's: Continue home carbidopa levodopa - anxiety/depression: Continue sertraline, BuSpar - type 2 diabetes: Continue glipizide - peripheral neuropathy: Continue gabapentin - hyperlipidemia: Continue Zetia - GERD: Protonix Diet: NPO for possible urologic procedure DVT prophylaxis: SCD Code status: full code Disposition: Will downgrade to med/tele, continue diuresis, likely greater than 3 days hospitalization Time Spent With Patient Time with patient: 25 - 35 minutes Subjective Date/time seen: 09/25/21 18:46 patient seen examined. He is doing well today. He had net -2.7 L fluid output continue diuresis. His urine catheter showing hematuria. Urologist would like to get some ultrasound imaging and consider OR clot evacuation versus CBI. Bleeding is from the dilation of the strictures. Patient is NPO for possible procedure. Lab work otherwise stable. yesterday passed a swallow study. Patient denies fever, chills, nausea vomiting, diarrhea. He endorses bloody urine otherwise no new complaints. Review of Systems Review of Systems: All systems reviewed & are unremarkable except as noted in HPI and below Exam Narrative: - GENERAL: Pleasant male in no acute distress with slightly labored respiration - EYES: EOMI. Anicteric. - HENT: Moist mucous membranes. - LUNGS: Clear to auscultation bilaterally, no wheezing, rhonchi, or rales. breathing comfortably on room air - CARDIOVASCULAR: irregularly irregular. No murmur. No JVD. - ABDOMEN: Soft, non-tender and non-distended. No palpable masses - : Yola hematuria, Durand is clamped at this time for imaging - EXTREMITIES: No edema. Peripheral pulses 2+. Non-tender. - NEUROLOGIC: No focal neurological deficits. CN II-XII grossly intact. - PSYCHIATRIC: Awake, Alert and oriented x 3. Appropriate mood and affect. - SKIN: No rashes or lesions. Warm. - LYMPH: No cervical lymphadenopathy. Objective Data Vital Signs Vital Signs: Vital Signs - 24 hr 09/24/21 20:00 09/24/21 20:14 09/24/21 20:52 Temperature 36.6 C Pulse Rate 114 H 108 H 113 H Respiratory Rate 20 Blood Pressure 104/59 L Pulse Oximetry 98 09/25/21 00:00 09/25/21 04:00 09/25/21 08:00 Temperature 36.8 C Pulse Rate 86 85 85 Respiratory Rate 16 Blood Pressure
--- NOTE | 2021-09-25 18:48 | PC.NURSE ---
Irrigated garcia with 40mL of sterile saline. Immediate return of 40-50mL of hematuria with clots noted at 1200.
--- NOTE | 2021-09-25 22:26 | PC.NURSE ---
This patient, Dante Ayers, was transferred to [ [facility]] on 09/25/21 at 2226. Personal belongings sent with patient. Report given to [Michael ]. Appropriate documentation sent with patient.
[2021-09-26] VITALS (15 sets, daily range): BP systolic 113–129; BP diastolic 57–80; PULSE 85–103; RESP 17–22; TEMP 36.3–37.6; O2SAT 92–100
[2021-09-26 07:18] LABS: Hematocrit 37.2 % (42.0-52.0); Hemoglobin 11.9 g/dL (14.0-18.0); Mean Corpuscular Hemoglobin 28.2 pg (26-34); Mean Corpuscular Volume 88.2 fl (80-100); Mean Platelet Volume 9.4 fl (7.4-10.4); Platelet Count Result 348 k/mm3 (150-375); Red Blood Count 4.22 M/mm3 (4.6-6.20); Red Cell Distribution Width 14.3 % (11.5-14.5); White Blood Count 13.5 K/mm3 (4.5-10.0)
[2021-09-26 07:33] LABS: Anion Gap 8 mmol/L (8-16); Blood Urea Nitrogen 32 mg/dL (9-20); Calcium 9.3 mg/dL (8.4-10.2); Carbon Dioxide 29 mmol/L (22-30); Chloride 100 mmol/L (98-107); Estimated CRCL calculation 54 ml/min; Estimated Glomerular Filt Rate 59; Glucose 134 mg/dL (65-110); Magnesium 2.1 mg/dL (1.6-2.3); Potassium 3.6 mmol/L (3.4-5.0); Sodium 137 mmol/L (137-145)
[2021-09-26] MEDS: GABAPENTIN 300 MG CAPSULE 600 MG PO ×2 (09:57→17:27)
[2021-09-26] MEDS: TAMSULOSIN HCL 0.4 MG CAPSULE PO (09:58)
[2021-09-26] MEDS: CARBIDOPA/LEVODOPA 12.5/50 MG TABLET 1 TABLET PO ×2 (09:58→17:28)
[2021-09-26] MEDS: DIGOXIN 250 MCG TABLET PO (09:58)
[2021-09-26] MEDS: SERTRALINE HCL 50 MG TABLET 200 MG PO (09:58)
[2021-09-26] MEDS: busPIRone HCL 10 MG TABLET PO ×2 (09:58→17:27)
[2021-09-26] MEDS: CARBIDOPA/LEVODOPA 25/100 MG TABLET 1 TABLET PO ×2 (09:59→17:28)
[2021-09-26] MEDS: DICLOFENAC SODIUM 1% 100 GM GEL (*BKC) 1 APPLIC TOPICAL ×3 (09:59→21:29)
[2021-09-26] MEDS: METOPROLOL TARTRATE 12.5 MG TABLET PO ×2 (09:59→21:29)
[2021-09-26] MEDS: PANTOPRAZOLE 40 MG TABLET PO (09:59)
[2021-09-26] MEDS: TOLNAFTATE 1% POWDER 45 GM BTL 1 APPLIC TOPICAL ×2 (09:59→21:29)
[2021-09-26 10:36] LABS: Glucose Point of Care 160 mg/dl (65-105)
[2021-09-26 10:37] LABS: Glucose Point of Care 198 mg/dl (65-105)
[2021-09-26 10:38] LABS: Glucose Point of Care 163 mg/dl (65-105)
--- NOTE | 2021-09-26 11:30 | WPDANESEPPF ---
Anes - Initial Pre Proc Eval Procedure: Operation Date: 09/26/21 12:30 Proposed Procedures p Cystoscopy, Evacuation Bladder Clot - Tk Roshan Danielson MD Date/Time: 09/26/21 11:30 Surgeon: Franco Zarco MD Pre Op Diagnosis: CHF/atrial flutter/pericardial effusion Patient Data Age: 80 Gender: M Height: 1.73 m Weight: 108.7 kg Last Vital Signs Temp 36.4 C L 09/26/21 06:38 Pulse 85 09/26/21 06:38 Resp 18 09/26/21 06:38 BP 123/71 09/26/21 06:38 Pulse Ox 95 09/26/21 06:38 Allergies Allergy/AdvReac Type Severity Reaction Status Date / Time No Known Allergies Allergy Verified 09/23/21 11:05 Home Medications Medication Instructions Recorded Confirmed Type amlodipine-benazepril 1 cap PO DAILY 09/23/21 09/23/21 History buspirone 10 mg PO TID 09/23/21 09/23/21 History carbidopa-levodopa 1.5 tablet PO TID 09/23/21 09/23/21 History cholecalciferol (vitamin D3) 75 mcg PO DAILY 09/23/21 09/23/21 History clobetasol 1 applic TOPICAL BID PRN 09/23/21 09/23/21 History cyanocobalamin (vitamin B-12) 1,000 mcg PO DAILY 09/23/21 09/23/21 History diclofenac sodium 4 g TOPICAL QID 09/23/21 09/23/21 History empagliflozin 12.5 mg PO DAILY 09/23/21 09/23/21 History ezetimibe 10 mg PO DAILY 09/23/21 09/23/21 History gabapentin 600 mg PO TID 09/23/21 09/23/21 History glipizide 5 mg PO BID 09/23/21 09/23/21 History hydrocodone-acetaminophen 1 tablet PO DAILY PRN 09/23/21 09/23/21 History lidocaine 1 patch TOPICAL DAILY PRN 09/23/21 09/23/21 History lisinopril 40 mg PO DAILY 09/23/21 09/23/21 History metformin 1,000 mg PO BID 09/23/21 09/23/21 History metoprolol tartrate 12.5 mg PO BID 09/23/21 09/23/21 History omeprazole 20 mg PO QAM 09/23/21 09/23/21 History sertraline 200 mg PO DAILY 09/23/21 09/23/21 History tamsulosin 0.4 mg PO DAILY 09/23/21 09/23/21 History Laboratory Tests 09/24/21 09/25/21 09/25/21 11:50 11:51 15:56 WBC RBC Hgb Hct MCV MCH MCHC RDW Plt Count MPV Sodium Potassium Chloride Carbon Dioxide Anion Gap BUN Creatinine Estim Creat Clear Calc Estimated GFR Glucose POC Capillary Glucose 160 mg/dl H mg/dl 198 mg/dl H mg/dl 217 mg/dl H mg/dl (65-105) (65-105) (65-105) Calcium Magnesium 09/25/21 09/26/21 09/26/21 19:44 06:58 06:58 WBC 13.5 K/mm3 H K/mm3 (4.5-10.0) RBC 4.22 M/mm3 L M/mm3 (4.6-6.20) Hgb 11.9 g/dL L g/dL (14.0-18.0) Hct 37.2 % L % (42.0-52.0) MCV 88.2 fl fl (80-100) MCH 28.2 pg pg (26-34) MCHC 32.0 g/dl g/dl (32-36) RDW 14.3 % % (11.5-14.5) Plt Count 348 k/mm3 k/mm3 (150-375) MPV 9.4 fl fl (7.4-10.4) Sodium 137 mmol/L mmol/L (137-145) Potassium 3.6 mmol/L mmol/L (3.4-5.0) Chloride 100 mmol/L mmol/L (98-107) Carbon Dioxide 29 mmol/L mmol/L (22-30) Anion Gap 8 mmol/L mmol/L (8-16) BUN 32 mg/dL H mg/dL (9-20) Creatinine 1.20 mg/dL mg/dL (0.7-1.3) Estim Creat Clear Calc 54 ml/min ml/min Estimated GFR 59 (59 - ) Glucose 134 mg/dL H mg/dL (65-110) POC Capillary Glucose 163 mg/dl H mg/dl (65-105) Calcium 9.3 mg/dL mg/dL (8.4-10.2) Magnesium 2.1 mg/dL mg/dL (1.6-2.3) Patient hx anesthesia problems: none Family hx anesthesia problems: none Results Review: All pre-operative results and documents have been reviewed as part of the pre-operative evaluation. [facility] Past Medical History Medical History Benign prostatic hyperplasia Cirrhosis Gastroesophageal reflux disease
[2021-09-26 11:49] LABS: Glucose Point of Care 170 mg/dl (65-105)
--- NOTE | 2021-09-26 12:15 | WPDHPUPDATE1 ---
History and Physical Update Update Date/Time: 09/26/21 12:15 History and Physical has been reviewed, including an updated exam of the patient. There are NO changes in the patient's condition. Risks, benefits, and alternatives have been discussed and questions answered. Patient agrees to proceed with procedure.
--- NOTE | 2021-09-26 12:32 | PM.PNCARD ---
Progress Note: A&P Assessment and Plan (1) CHF (congestive heart failure): Qualifiers: Heart failure chronicity: acute on chronic Heart failure type: diastolic Qualified Code(s): I50.33 - Acute on chronic diastolic (congestive) heart failure Code(s): I50.9 - Heart failure, unspecified Status: Acute Assessment and Plan: Acute on chronic heart failure with preserved ejection fraction, reasonably compensated. EF preserved 65-70%. Transition oral regimen possibly tomorrow. Monitor electrolytes and renal function. Check BMP in a.m.. (2) Atrial flutter: Qualifiers: Atrial flutter type: unspecified Qualified Code(s): I48.92 - Unspecified atrial flutter Code(s): I48.92 - Unspecified atrial flutter Status: Acute Assessment and Plan: Heart rate controlled presentation. He is not on telemetry. All possible difficult to imagine discontinuation of digoxin primary explanation for decompensated heart failure with controlled atrial flutter. Repeat 12 lead EKG. Check digoxin level. He is not on telemetry. He is not on systemic anticoagulation, managed at the [facility]. Continue metoprolol tartrate 12.5 mg twice daily. Goal to keep digoxin level less than 1.0. Monitor closely given advanced age, mild renal insufficiency. (3) Hypertension: Qualifiers: Hypertension type: secondary to endocrine disorders Qualified Code(s): I15.2 - Hypertension secondary to endocrine disorders Code(s): I10 - Essential (primary) hypertension Status: Acute Assessment and Plan: Stable, controlled. Amlodipine benazepril. (4) Paroxysmal atrial fibrillation: Code(s): I48.0 - Paroxysmal atrial fibrillation Status: Acute Assessment and Plan: As above. (5) Gross hematuria: Code(s): R31.0 - Gross hematuria Status: Acute Assessment and Plan: Management per urology. Cystoscopy this afternoon. (6) Type 2 diabetes mellitus: Code(s): E11.9 - Type 2 diabetes mellitus without complications Status: Acute Assessment and Plan: SGOT 2 inhibitor therapy. (7) Pericardial effusion: Code(s): I31.3 - Pericardial effusion (noninflammatory) Status: Acute Assessment and Plan: Moderate, no tamponade physiology. Not clinically problematic at this time. Additional Plan Assessment Acute on chronic CHF, possibly related to recent URTI vs discontinuation of digoxin A flutter RVR DM and dyslipidemia Plan Cont digoxin 0.25 mg daily Lasix 40 mg IV BID Cont metoprolol 12.5 mg BID Add lisinopril 5 mg daily Subjective Date/time seen: Date of service: 09/26/21 12:32 Follow-up for CHF, history of atrial fibrillation/flutter Feeling better. Denies shortness of breath, palpitation. He is not on telemetry. Heart rate control vital signs. at bedside. Discussed at length plan of care, clinical status with patient and his all questions answered to their satisfaction. Patient scheduled for cystoscopy this afternoon. Review of Systems Review of Systems: All systems reviewed & are unremarkable except as noted in HPI and below Constitutional: Constitutional: Reports as per HPI and Reports no additional constitutional complaints Eyes: Eyes: Reports as per HPI and Reports no additional eye complaints ENT: Reports system reviewed and no additional complaints, except as documented and Reports as per HPI Cardiovascular: Cardiovascular: Reports as per HPI and Reports no additional cardiovascular complaints Respiratory: Respiratory: Reports as per HPI and Reports no additional respiratory complaints Gastrointestinal: Gastrointestinal: Reports as per HPI and Reports no additional gastrointestinal complaints Genitourinary: Genitourinary: Reports no additional male genitourinary complaints and Reports as per HPI Musculoskeletal: Musculoskeletal: Reports no additional musculoskeletal complaints and Reports
[2021-09-26] MEDS: ceFAZolin 2 GM/D5W 50 ML 2 GM/50 ML BAG IVPB (12:49)
[2021-09-26] MEDS: LACTATED RINGERS 1,000 ML 30 ML IV CONT (12:50)
[2021-09-26] MEDS: metroNIDAZOLE 500 MG/ISO 100ML 500 MG/100 ML BAG 100 MG IVPB (13:06)
--- NOTE | 2021-09-26 13:19 | P.OP_ITS ---
Procedure Note - Detailed Date of Procedure 09/26/21 Pre-op Diagnosis Gross hematuria Post-op Diagnosis Same Procedure Performed Cystoscopy evacuation of clots Surgeon Tk Danielson MD Anesthesia General Indications This is a gentleman with clot retention. He is here today for a cystoscopy evacuation of clot Findings 250 cc of clot. You back UA did. High bladder neck. Trabeculated bladder. Vascular prostate evidence of urethral dilation Description of Procedure He has correctly identified. Informed consent obtained. He from the operating room. He was given general anesthesia. He was prepped draped sterile fashion. Time-out performed. Cystoscopy revealed evidence of his urethral dilation. I was able to negotiate a 19 Icelandic scope into the bladder quite easily. He had a large amount of clot within the bladder. I evacuated 250 cc of clot. There was no active bleeding. There was some vascularity to his prostate. He had a very high bladder neck making it difficult to evaluate the dome of the bladder. No large tumor was seen. There was moderate trabeculations. No active bleeding within the bladder. I placed 20 Icelandic Durand catheter to gravity drainage. He was awakened and transferred to PACU in stable condition. Estimated Blood Loss 1 Urine Output 0 Drains Yes (Durand catheter) Packing No Pathology None sent Complications No immediate complications Condition Stable Disposition PACU
--- NOTE | 2021-09-26 13:44 | PM.IMPN ---
Progress Note: A&P Assessment and Plan (1) CHF (congestive heart failure): Qualifiers: Heart failure chronicity: acute on chronic Heart failure type: diastolic Qualified Code(s): I50.33 - Acute on chronic diastolic (congestive) heart failure Code(s): I50.9 - Heart failure, unspecified Status: Acute Assessment and Plan: Patient present with SOB and CXR showing mild pulmonary edema. BNP 1440. Echo showing EF 65% and normal diastolic function. Related to tachycardia since being off of Digoxin? Related to URI symptoms? Related to pericardial disease? Hypoxia noted on admission felt related to CHF. Treated with IV Lasix. Apprecaite Cardiology input. Wean O2 as tolerated. (2) Pericardial effusion: Code(s): I31.3 - Pericardial effusion (noninflammatory) Status: Acute Assessment and Plan: CXR showing CMG. CTA chest negative for PE but does show moderate size pericardial effusion. Echo showing thickened pericardium with soft tissue density seen in the visceral pericardium but no echocardiographic stigmata to suggest tamponade physiology. Cardiology following. (3) Gross hematuria: Code(s): R31.0 - Gross hematuria Status: Acute Assessment and Plan: Gross hematuria and renal US showing echogenic material surrounding the Durand in the bladder. He was taken down for clot evacuation earlier today. Continue Durand (4) Urethral stricture: Code(s): N35.919 - Unspecified urethral stricture, male, unspecified site Status: Acute Assessment and Plan: Patient has a history of prostate cancer status post brachytherapy. After admission, he had difficulty voiding the progress to near retention. Was found to have a urethral stricture and bladder neck contracture. This was dilated at the bedside. Patient did developed hematuria and found to have clot. He is now status post clot evacuation earlier today. Hemoglobin stable in the 11 range. (5) Paroxysmal atrial fibrillation: Code(s): I48.0 - Paroxysmal atrial fibrillation Status: Acute Assessment and Plan: EKG shows atrial flutter with rate 91. Not on anticoagulation listed on admission. He has been intermittently tachycardic. He remains on Lopressor. Heart rate better controlled overall. Continue to follow. (6) Type 2 diabetes mellitus: Code(s): E11.9 - Type 2 diabetes mellitus without complications Status: Acute Assessment and Plan: The patient's blood glucose was reviewed on 09/26 Glucose remains reasonably well controlled. Continue AccuCheks covering with sliding scale. Hypoglycemia protocol available as needed. Continue current medications. (7) Parkinsons disease: Code(s): G20 - Parkinson's disease Status: Acute Assessment and Plan: Patient with Parkinson's disease. Continue Sinemet. Start PT/OT (8) Hypertension: Qualifiers: Hypertension type: secondary to endocrine disorders Qualified Code(s): I15.2 - Hypertension secondary to endocrine disorders Code(s): I10 - Essential (primary) hypertension Status: Acute Assessment and Plan: Patient's blood pressure was reviewed on 09/26 Blood pressure remains well controlled. Will continue current medications. (9) Cirrhosis: Code(s): K74.60 - Unspecified cirrhosis of liver Status: Acute Assessment and Plan: Patient has a history of cirrhosis and also was treated for hepatitis-C. CT of the chest showed that the visualized portion of the upper abdomen was unremarkable. His PT and PTT were elevated. Ammonia level negative. LFTs normal. Continue to follow. (10) DVT prophylaxis: Code(s): Z29.9 - Encounter for prophylactic measures, unspecified Status: Acute Assessment and Plan: SCDs Subjective Date/time seen: 09/26/21 13:44 Interval history: 80yo male with PD, HTN, pAFib and DM here for SOB.
[2021-09-26 13:49] LABS: Glucose Point of Care 177 mg/dl (65-105)
--- NOTE | 2021-09-26 15:56 | ECG_ITS ---
Measurements Intervals [place] Rate: 90 P: 48 MS: 151 QRS: 24 QRSD: 108 T: 39 QT: 363 QTc: 446 Interpretive Statements SINUS RHYTHM ATRIAL PREMATURE COMPLEX NONSPECIFIC T-WAVE ABNORMALITY- INF/HIGH LAT LEADS BASELINE ARTIFACT- I, II, III BORDERLINE ECG Electronically Signed On 09-26-2021 16:36:07 CDT by Felton Esquivel D.O.
--- NOTE | 2021-09-26 16:12 | PC.NURSE ---
This RN attempted to clarify pharmacy formulary exchange with pt's covering provider. Unable to verify.
[2021-09-26 17:11] LABS: Glucose Point of Care 159 mg/dl (65-105)
[2021-09-26] MEDS: POTASSIUM CHLORIDE 20 MEQ TABLET PO (17:27)
[2021-09-26] MEDS: FUROSEMIDE INJ 40 MG/4 ML VIAL IV PUSH (17:27)
[2021-09-26] MEDS: glipiZIDE 5 MG TABLET PO (17:29)
[2021-09-26] MEDS: metFORMIN HCL 500 MG TABLET 1000 MG PO (17:30)
--- NOTE | 2021-09-26 17:57 | PC.NURSE ---
Pt's current home med list obtained form spouse and placed in front of chart for provider review.
[2021-09-26 22:12] LABS: Glucose Point of Care 195 mg/dl (65-105)
[2021-09-27 05:59] VITALS: BP 112/69; PULSE 88; RESP 18; TEMP 36.2; O2SAT 92
[2021-09-27 06:30] LABS: Hematocrit 38.6 % (42.0-52.0); Mean Corpuscular HGB Conc 31.1 g/dl (32-36); Mean Corpuscular Volume 90.2 fl (80-100); Mean Platelet Volume 9.5 fl (7.4-10.4); Platelet Count Result 335 k/mm3 (150-375); Red Blood Count 4.28 M/mm3 (4.6-6.20); Red Cell Distribution Width 14.1 % (11.5-14.5); White Blood Count 13.8 K/mm3 (4.5-10.0)
[2021-09-27 06:48] LABS: Anion Gap 9 mmol/L (8-16); Blood Urea Nitrogen 37 mg/dL (9-20); Calcium 9.1 mg/dL (8.4-10.2); Carbon Dioxide 28 mmol/L (22-30); Chloride 102 mmol/L (98-107); Estimated CRCL calculation 59 ml/min; Estimated Glomerular Filt Rate > 60; Glucose 135 mg/dL (65-110); Magnesium 2.2 mg/dL (1.6-2.3); Potassium 3.9 mmol/L (3.4-5.0); Sodium 139 mmol/L (137-145)
[2021-09-27 06:51] LABS: Digoxin < 0.5 ng/mL (0.8-2.0)
--- NOTE | 2021-09-27 07:51 | WPDANESPN ---
Anes - Prog Note Post-Op Date/Time: 09/27/21 07:51 Cardiovascular status: normal Respiratory status: normal Airway patency: baseline Mental status: baseline Post-Op hydration status: normal Vital Signs: Last Vital Signs Temp 36.2 C L 09/27/21 05:59 Pulse 88 09/27/21 05:59 Resp 18 09/27/21 05:59 BP 112/69 09/27/21 05:59 Pulse Ox 92 09/27/21 05:59 Pain Score (VAS): 0 I/O: Intake & Output 09/26/21 09/26/21 09/27/21 15:59 23:59 07:59 Intake Total 350 236 460 Output Total 80 104 851 Balance 067 -526 -335 Laboratory Tests 09/27/21 06:06 09/27/21 06:06 09/24/21 09/25/21 09/25/21 11:50 11:51 19:44 WBC RBC Hgb Hct MCV MCH MCHC RDW Plt Count MPV Sodium Potassium Chloride Carbon Dioxide Anion Gap BUN Creatinine Estim Creat Clear Calc Estimated GFR Glucose POC Capillary Glucose 160 H 198 H 163 H Calcium Magnesium Digoxin 09/26/21 09/26/21 09/26/21 11:46 13:45 17:06 WBC RBC Hgb Hct MCV MCH MCHC RDW Plt Count MPV Sodium Potassium Chloride Carbon Dioxide Anion Gap BUN Creatinine Estim Creat Clear Calc Estimated GFR Glucose POC Capillary Glucose 170 H 177 H 159 H Calcium Magnesium Digoxin 09/26/21 09/27/21 09/27/21 21:28 06:06 06:06 WBC 13.8 H RBC 4.28 L Hgb 12.0 L Hct 38.6 L MCV 90.2 MCH 28.0 MCHC 31.1 L RDW 14.1 Plt Count 335 MPV 9.5 Sodium 139 Potassium 3.9 Chloride 102 Carbon Dioxide 28 Anion Gap 9 BUN 37 H Creatinine 1.10 Estim Creat Clear Calc 59 Estimated GFR > 60 Glucose 135 H POC Capillary Glucose 195 H Calcium 9.1 Magnesium 2.2 Digoxin 09/27/21 06:06 WBC RBC Hgb Hct MCV MCH MCHC RDW Plt Count MPV Sodium Potassium Chloride Carbon Dioxide Anion Gap BUN Creatinine Estim Creat Clear Calc Estimated GFR Glucose POC Capillary Glucose Calcium Magnesium Digoxin < 0.5 L Post-procedural complaints: none Patient Feedback: Patient satisfied with anesthetic care.
--- NOTE | 2021-09-27 08:01 | WPDUROPN2 ---
Progress Note: A&P Assessment and Plan (1) Gross hematuria: Code(s): R31.0 - Gross hematuria Status: Acute (2) Urethral stricture: Code(s): N35.919 - Unspecified urethral stricture, male, unspecified site Status: Acute Assessment and Plan: Catheter draining well, urine clear Plan voiding trial tomorrow or Subjective Subjective Date/Time Seen: 09/27/21 08:01 Urine clear, no catheter issues overnight Review of Systems Cardiovascular: Cardiovascular: Denies chest pain, Denies lightheadedness, Denies palpitations and Denies dyspnea Respiratory: Respiratory: Denies dyspnea Gastrointestinal: Gastrointestinal: Denies diarrhea, Denies nausea and Denies vomiting Genitourinary: Genitourinary: Denies hematuria and Denies dysuria Endocrine: Endocrine: Denies palpitations Exam Const: General: no acute distress Resp: Effort & Inspection: normal respiratory effort GI: Inspection: non-distended GI Palp: No abdominal tenderness and No Guarding due to palpation present (GI) Auscultation: normal bowel sounds Urinary Catheter: Urinary Catheter: patent and draining and urine clear Objective Data Vital Signs Vital Signs: Vital Signs - 24 hr 09/26/21 11:22 09/26/21 13:25 09/26/21 13:40 Temperature 98.5 F 98.0 F Pulse Rate 86 86 85 Respiratory Rate 20 19 19 Blood Pressure 120/71 113/64 126/63 Pulse Oximetry 95 96 96 09/26/21 13:55 09/26/21 14:10 09/26/21 14:25 Temperature Pulse Rate 87 88 90 Respiratory Rate 21 H 20 17 Blood Pressure 120/57 L 113/61 127/68 Pulse Oximetry 98 94 93 09/26/21 14:41 09/26/21 15:40 09/26/21 17:48 Temperature 97.3 F L Pulse Rate 88 89 Respiratory Rate 22 H 20 Blood Pressure 123/68 119/74 Pulse Oximetry 92 96 94 09/26/21 20:22 09/26/21 21:29 09/26/21 22:30 Temperature 99.6 F Pulse Rate 103 H 101 H Respiratory Rate 18 Blood Pressure 129/80 Pulse Oximetry 95 100 09/27/21 05:59 Temperature 97.2 F L Pulse Rate 88 Respiratory Rate 18 Blood Pressure 112/69 Pulse Oximetry 92 Intake/Output Intake/Output: Intake & Output 09/24/21 09/25/21 09/26/21 09/27/21 23:59 23:59 23:59 23:59 Intake Total 920 900 586 460 Output Total 3700 3200 1130 851 [facility] -[id number] [phone] [phone] Meds/Results Medications: Active Medications Generic Name Dose Route Start Last Admin Trade Name Freq PRN Reason Stop Dose Admin Hydrocodone Bitart/Acetaminophen 1 tab 09/23/21 21:53 Hydrocodone/Acetaminophen (*Crx) 5-325 Mg Tablet PO DAILY PRN Pain (Scale Score 4-6) Buspirone HCl 10 mg 09/24/21 09:00 09/26/21 17:27 Buspirone Hcl 10 Mg Tablet PO 10 mg TID ILDA Administration Carbidopa/Levodopa 1 tablet 09/24/21 08:00 09/26/21 17:28 Carbidopa/Levodopa 25/100 Mg Tablet PO 1 tablet TIDWM ILDA Administration Carbidopa/Levodopa 1 tablet 09/24/21 08:00 09/26/21 17:28 Carbidopa/Levodopa 12.5/50 Mg Tablet PO 1 tablet TIDWM ILDA Administration Clobetasol Propionate 1 applic 09/23/21 21:53 09/25/21 10:31 Clobetasol Propionate 0.05% Oint 30 Gm TOPICAL 1 applic BID PRN Administration Pain, Mild Cyanocobalamin 1,000 mcg 09/24/21 09:00 09/26/21 09:55 Cyanocobalamin 1,000 Mcg Tablet PO Not Given DAILY ILDA Dextrose 12.5 gm 09/23/21 21:55 Dextrose 50% 25 Gm/50 Ml Syringe IV PUSH PRN PRN Hypoglycemia Protocol Diclofenac Sodium 1 applic 09/24/21 09:00 09/26/21 21:29 Diclofenac Sodium 1% 100 Gm Gel (*Bkc) TOPICAL 1 applic QID ILDA Administration Digoxin 250 mcg 09/25/21 09:00 09/26/21 09:58 Digoxin 250 Mcg Tablet PO 250 mcg QAM ILDA Administration Ezetimibe 10 mg 09/24/21 09:00 09/26/21 09:55 Ezetimibe 10 Mg Tablet PO Not Given DAILY ILDA Empagliflozin 12.5 mg 09/24/21 09:00 09/26/21 09:55 Empagliflozin 25 Mg Tablet PO Not Given DAILY ILDA Fentanyl Citrate 25 mcg 09/26/21 11:38 Fentanyl Citrate Inj
[2021-09-27 08:04] LABS: Glucose Point of Care 155 mg/dl (65-105)
--- NOTE | 2021-09-27 08:58 | PM.PNCARD ---
Progress Note: A&P Assessment and Plan (1) CHF (congestive heart failure): Qualifiers: Heart failure chronicity: acute on chronic Heart failure type: diastolic Qualified Code(s): I50.33 - Acute on chronic diastolic (congestive) heart failure <MARICEL Best - Last Filed: 09/27/21 13:21> Code(s): I50.9 - Heart failure, unspecified <MARICEL Best - Last Filed: 09/27/21 13:21> Status: Acute <MARICEL Best - Last Filed: 09/27/21 13:21> Assessment and Plan: Acute on chronic heart failure with preserved ejection fraction, reasonably compensated. EF preserved 65-70%. Transition to oral diuretic regimen today. Monitor electrolytes and renal function. Probably ok for discharge tomorrow if stable on oral furosemide <MARICEL Best - Last Filed: 09/27/21 13:21> (2) Atrial flutter: Qualifiers: Atrial flutter type: unspecified Qualified Code(s): I48.92 - Unspecified atrial flutter <MARICEL Best - Last Filed: 09/27/21 13:21> Code(s): I48.92 - Unspecified atrial flutter <MARICEL Best - Last Filed: 09/27/21 13:21> Status: Acute <MARICEL Best - Last Filed: 09/27/21 13:21> Assessment and Plan: Heart rate controlled presentation. He is not on telemetry. All possible difficult to imagine discontinuation of digoxin primary explanation for decompensated heart failure with controlled atrial flutter. Digoxin level <0.5, acceptable. Goal <1.0. Monitor closely given advanced age and mild renal insufficiency He is not on telemetry but EKG showed sinus rhythm with PAC's. He is not on systemic anticoagulation, [facility]. Continue metoprolol tartrate 12.5 mg twice daily. 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 Amlodipine benazepril. <MARICEL Best - Last Filed: 09/27/21 13:21> (4) Paroxysmal atrial fibrillation: Code(s): I48.0 - Paroxysmal atrial fibrillation <MARICEL Best - Last Filed: 09/27/21 13:21> Status: Acute <MARICEL Best - Last Filed: 09/27/21 13:21> Assessment and Plan: As above. <MARICEL Best - Last Filed: 09/27/21 13:21> (5) Gross hematuria: Code(s): R31.0 - Gross hematuria <MARICEL Best - Last Filed: 09/27/21 13:21> Status: Acute <MARICEL Best - Last Filed: 09/27/21 13:21> Assessment and Plan: Management per urology. Cystoscopy this afternoon. <MARICEL Best - Last Filed: 09/27/21 13:21> (6) Type 2 diabetes mellitus: Code(s): E11.9 - Type 2 diabetes mellitus without complications <MARICEL Best - Last Filed: 09/27/21 13:21> Status: Acute <MARICEL Best - Last Filed: 09/27/21 13:21> Assessment and Plan: SGOT 2 inhibitor therapy. <MARICEL Best - Last Filed: 09/27/21 13:21> (7) Pericardial effusion: Code(s): I31.3 - Pericardial effusion (noninflammatory) <MARICEL Best - Last Filed: 09/27/21 13:21> Status: Acute <MARICEL Best - Last Filed: 09/27/21 13:21> Assessment and Plan: Moderate, no tamponade physiology. Not clinically problematic at this time. <MARICEL Best - Last Filed: 09/27/21 13:21> Additional Plan Attending Addendum: I agree with the above documentation and plan of care as outlined. <Shweta Hickman
[2021-09-27] MEDS: CARBIDOPA/LEVODOPA 12.5/50 MG TABLET 1 TABLET PO ×3 (10:06→17:34)
[2021-09-27] MEDS: GABAPENTIN 300 MG CAPSULE 600 MG PO ×3 (10:06→17:34)
[2021-09-27] MEDS: CHOLECALCIFEROL 1,000 UNITS TABLET 3000 UNITS PO (10:06)
[2021-09-27] MEDS: EZETIMIBE 10 MG TABLET PO (10:06)
[2021-09-27] MEDS: CARBIDOPA/LEVODOPA 25/100 MG TABLET 1 TABLET PO ×3 (10:07→17:34)
[2021-09-27] MEDS: EMPAGLIFLOZIN 25 MG TABLET 12.5 MG PO (10:07)
[2021-09-27] MEDS: CYANOCOBALAMIN 1,000 MCG TABLET 1000 MCG PO (10:07)
[2021-09-27] MEDS: lisinopriL 5 MG TABLET PO (10:07)
[2021-09-27] MEDS: METOPROLOL TARTRATE 12.5 MG TABLET PO ×2 (10:07→21:03)
[2021-09-27] MEDS: busPIRone HCL 10 MG TABLET PO ×3 (10:07→17:34)
[2021-09-27] MEDS: PANTOPRAZOLE 40 MG TABLET PO (10:08)
[2021-09-27] MEDS: glipiZIDE 5 MG TABLET PO ×2 (10:08→17:35)
[2021-09-27] MEDS: metFORMIN HCL 500 MG TABLET 1000 MG PO ×2 (10:08→17:35)
[2021-09-27] MEDS: DIGOXIN 250 MCG TABLET PO (10:08)
[2021-09-27] MEDS: TAMSULOSIN HCL 0.4 MG CAPSULE PO (10:08)
[2021-09-27] MEDS: SERTRALINE HCL 50 MG TABLET 200 MG PO (10:09)
[2021-09-27] MEDS: FUROSEMIDE INJ 40 MG/4 ML VIAL IV PUSH (10:10)
[2021-09-27 11:55] LABS: Glucose Point of Care 198 mg/dl (65-105)
--- NOTE | 2021-09-27 12:44 | PM.IMPN ---
Progress Note: A&P Assessment and Plan (1) CHF (congestive heart failure): Qualifiers: Heart failure chronicity: acute on chronic Heart failure type: diastolic Qualified Code(s): I50.33 - Acute on chronic diastolic (congestive) heart failure Code(s): I50.9 - Heart failure, unspecified Status: Acute Assessment and Plan: Patient present with SOB, hypoxia and CXR showing mild pulmonary edema. BNP 1440. Echo showing EF 65% and normal diastolic function. CHF exacerbation related to tachycardia since being off of Digoxin? Related to URI symptoms? Related to pericardial disease? Treated with IV Lasix. Weaned to room air. Appreciate Cardiology input. (2) Pericardial effusion: Code(s): I31.3 - Pericardial effusion (noninflammatory) Status: Acute Assessment and Plan: CXR showing CMG. CTA chest negative for PE but does show moderate size pericardial effusion. Echo showing thickened pericardium with soft tissue density seen in the visceral pericardium but no echocardiographic stigmata to suggest tamponade physiology. Cardiology following. (3) Gross hematuria: Code(s): R31.0 - Gross hematuria Status: Acute Assessment and Plan: Gross hematuria and renal US showing echogenic material surrounding the Durand in the bladder. He was taken down for clot evacuation 09/26 and tolerated this well. Continue Durand (4) Urethral stricture: Code(s): N35.919 - Unspecified urethral stricture, male, unspecified site Status: Acute Assessment and Plan: Patient has a history of prostate cancer status post brachytherapy. After admission, he had difficulty voiding that progressed to near retention. 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 This was dilated at the bedside on 09/24. Patient did developed hematuria later as mentioned above and found to have clot within the bladder. He is now status post clot evacuation on 09/26. Hemoglobin stable in the 11-12 range. (5) Paroxysmal atrial fibrillation: Code(s): I48.0 - Paroxysmal atrial fibrillation Status: Acute Assessment and Plan: EKG shows atrial flutter with rate 91. Not on anticoagulation on admission. He has been intermittently tachycardic. He was taken off his Digoxin recently. He was continued on his Lopressor and Digoxin added back. Digoxin level <0.5. Heart rate better controlled overall. Continue to follow. (6) Type 2 diabetes mellitus: Code(s): E11.9 - Type 2 diabetes mellitus without complications Status: Acute Assessment and Plan: The patient's blood glucose was reviewed on 09/27 Glucose remains reasonably well controlled. Continue AccuCheks covering with sliding scale. Hypoglycemia protocol available as needed. Continue current medications with Jardiance, Glipizide and Metformin. (7) Parkinsons disease: Code(s): G20 - Parkinson's disease Status: Acute Assessment and Plan: Patient with Parkinson's disease. We continued his Sinemet. He worked with PT/OT (8) Hypertension: Qualifiers: Hypertension type: secondary to endocrine disorders Qualified Code(s): I15.2 - Hypertension secondary to endocrine disorders Code(s): I10 - Essential (primary) hypertension Status: Acute Assessment and Plan: Patient's blood pressure was reviewed on 09/27 Blood pressure remains well controlled. Will continue current medications. (9) Cirrhosis: Code(s): K74.60 - Unspecified cirrhosis of liver Status: Acute Assessment and Plan: Patient has a history of cirrhosis and also was treated for hepatitis-C. CT of the chest showed that the visualized portion of the upper abdomen was unremarkable. His PT and PTT were elevated. Ammonia level negative. LFTs normal. Continue to follow. (10) DVT prophylaxis: Code(s): Z29.9 - Encounter for prophylactic measures, unspecifi
[2021-09-27 14:00] VITALS: BP 108/81; PULSE 101; RESP 16; TEMP 36.6; O2SAT 94
[2021-09-27 17:08] LABS: Glucose Point of Care 210 mg/dl (65-105)
[2021-09-27] MEDS: FUROSEMIDE 40 MG TABLET PO (17:34)
[2021-09-27] MEDS: DICLOFENAC SODIUM 1% 100 GM GEL (*BKC) 1 APPLIC TOPICAL (21:02)
[2021-09-27] MEDS: TOLNAFTATE 1% POWDER 45 GM BTL 1 APPLIC TOPICAL (21:02)
[2021-09-27 21:03] VITALS: PULSE 99
[2021-09-27 21:15] LABS: Glucose Point of Care 160 mg/dl (65-105)
[2021-09-27 22:00] VITALS: BP 106/61; PULSE 96; RESP 18; TEMP 36.6; O2SAT 95
[2021-09-28 04:57] VITALS: BP 120/70; PULSE 79; RESP 18; TEMP 36.5; O2SAT 95
[2021-09-28 06:40] LABS: Hematocrit 39.5 % (42.0-52.0); Hemoglobin 12.3 g/dL (14.0-18.0); Mean Corpuscular HGB Conc 31.1 g/dl (32-36); Mean Corpuscular Hemoglobin 27.8 pg (26-34); Mean Corpuscular Volume 89.4 fl (80-100); Mean Platelet Volume 9.4 fl (7.4-10.4); Platelet Count Result 304 k/mm3 (150-375); Red Blood Count 4.42 M/mm3 (4.6-6.20); Red Cell Distribution Width 13.9 % (11.5-14.5); White Blood Count 12.5 K/mm3 (4.5-10.0)
[2021-09-28 06:50] LABS: Anion Gap 9 mmol/L (8-16); Blood Urea Nitrogen 39 mg/dL (9-20); Calcium 8.9 mg/dL (8.4-10.2); Carbon Dioxide 28 mmol/L (22-30); Chloride 99 mmol/L (98-107); Estimated CRCL calculation 58 ml/min; Estimated Glomerular Filt Rate > 60; Glucose 135 mg/dL (65-110); Potassium 3.6 mmol/L (3.4-5.0); Sodium 136 mmol/L (137-145)
[2021-09-28 07:21] LABS: Hemoglobin A1C 6.9 % (<5.7)
[2021-09-28 07:49] LABS: Glucose Point of Care 140 mg/dl (65-105)
[2021-09-28 09:12] VITALS: PULSE 80
[2021-09-28] MEDS: METOPROLOL TARTRATE 12.5 MG TABLET PO (09:12)
[2021-09-28] MEDS: TOLNAFTATE 1% POWDER 45 GM BTL 1 APPLIC TOPICAL (09:12)
[2021-09-28] MEDS: DICLOFENAC SODIUM 1% 100 GM GEL (*BKC) 1 APPLIC TOPICAL ×3 (09:12→17:15)
[2021-09-28] MEDS: EMPAGLIFLOZIN 25 MG TABLET 12.5 MG PO (09:13)
[2021-09-28] MEDS: CARBIDOPA/LEVODOPA 12.5/50 MG TABLET 1 TABLET PO ×3 (09:13→17:14)
[2021-09-28] MEDS: CYANOCOBALAMIN 1,000 MCG TABLET 1000 MCG PO (09:13)
[2021-09-28] MEDS: PANTOPRAZOLE 40 MG TABLET PO (09:13)
[2021-09-28] MEDS: busPIRone HCL 10 MG TABLET PO ×3 (09:13→17:15)
[2021-09-28] MEDS: CARBIDOPA/LEVODOPA 25/100 MG TABLET 1 TABLET PO ×3 (09:13→17:14)
[2021-09-28] MEDS: CLOBETASOL PROPIONATE 0.05% OINT 30 GM 1 APPLIC TOPICAL (09:13)
[2021-09-28] MEDS: CHOLECALCIFEROL 1,000 UNITS TABLET 3000 UNITS PO (09:13)
[2021-09-28 09:14] VITALS: PULSE 80
[2021-09-28] MEDS: TAMSULOSIN HCL 0.4 MG CAPSULE PO (09:14)
[2021-09-28] MEDS: glipiZIDE 5 MG TABLET PO ×2 (09:14→17:14)
[2021-09-28] MEDS: FUROSEMIDE 40 MG TABLET PO ×2 (09:14→17:15)
[2021-09-28] MEDS: lisinopriL 5 MG TABLET PO (09:14)
[2021-09-28] MEDS: EZETIMIBE 10 MG TABLET PO (09:14)
[2021-09-28] MEDS: metFORMIN HCL 500 MG TABLET 1000 MG PO ×2 (09:14→17:16)
[2021-09-28] MEDS: SERTRALINE HCL 50 MG TABLET 200 MG PO (09:14)
[2021-09-28] MEDS: GABAPENTIN 300 MG CAPSULE 600 MG PO ×3 (09:14→17:15)
[2021-09-28] MEDS: DIGOXIN 250 MCG TABLET PO (09:14)
[2021-09-28 11:16] LABS: Glucose Point of Care 216 mg/dl (65-105)
[2021-09-28 14:00] VITALS: BP 119/66; PULSE 74; RESP 18; TEMP 36.7; O2SAT 93
--- NOTE | 2021-09-28 15:57 | PM.DS ---
DS: Admitting Diagnosis Discharge Date 09/27/21 Admitting Diagnosis Shortness of breath DS: Discharge Diagnosis Discharge Diagnosis (1) CHF (congestive heart failure): Qualifiers: Heart failure chronicity: acute on chronic Heart failure type: diastolic Qualified Code(s): I50.33 - Acute on chronic diastolic (congestive) heart failure Code(s): I50.9 - Heart failure, unspecified Status: Acute Assessment and Plan: Patient presents with SOB, hypoxia and CXR showing mild pulmonary edema. BNP 1440. Echo showing EF 65% and normal diastolic function. CHF exacerbation related to tachycardia since being off of Digoxin? Related to URI symptoms? Related to pericardial disease? Treated with IV Lasix with good response and renal function remained normal. Weaned to room air. Appreciate Cardiology input. Home with Lasix. (2) Pericardial effusion: Code(s): I31.3 - Pericardial effusion (noninflammatory) Status: Acute Assessment and Plan: CXR showing CMG. CTA chest negative for PE but does show moderate size pericardial effusion. Echo showing thickened pericardium with soft tissue density seen in the visceral pericardium but no echocardiographic stigmata to suggest tamponade physiology. Cardiology followed along. (3) Gross hematuria: Code(s): R31.0 - Gross hematuria Status: Acute Assessment and Plan: Gross hematuria and renal US showing echogenic material surrounding the Durand in the bladder. He underwent clot evacuation 09/26 and tolerated this well. Plan discharge with Durand. (4) Urethral stricture: Code(s): N35.919 - Unspecified urethral stricture, male, unspecified site Status: Acute Assessment and Plan: Patient has a history of prostate cancer status post brachytherapy. After admission, he had difficulty voiding that progressed to near retention. 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 This was dilated at the bedside on 09/24. Patient did developed hematuria later as mentioned above and found to have clot within the bladder. He is now status post clot evacuation on 09/26. Hemoglobin stable in the 11-12 range. (5) Paroxysmal atrial fibrillation: Code(s): I48.0 - Paroxysmal atrial fibrillation Status: Acute Assessment and Plan: EKG shows atrial flutter with rate 91. Not on anticoagulation on admission. He has been intermittently tachycardic. He was taken off his Digoxin recently. He was continued on his Lopressor and Digoxin was added back. Digoxin level <0.5. Heart rate better controlled overall. (6) Type 2 diabetes mellitus: Code(s): E11.9 - Type 2 diabetes mellitus without complications Status: Acute Assessment and Plan: A1c 6.9. The patient's blood glucose was monitored closely with AccuCheks covering with sliding scale. Hypoglycemia protocol was available as needed. We continued current medications with Jardiance, Glipizide and Metformin. (7) Parkinsons disease: Code(s): G20 - Parkinson's disease Status: Acute Assessment and Plan: Patient with Parkinson's disease. We continued his Sinemet. He worked with PT/OT. He has been up ambulating 30+ feet with walker. He feels comfortable with discharge plan. (8) Hypertension: Qualifiers: Hypertension type: secondary to endocrine disorders Qualified Code(s): I15.2 - Hypertension secondary to endocrine disorders Code(s): I10 - Essential (primary) hypertension Status: Acute Assessment and Plan: Patient's blood pressure was monitored closely and remained well controlled. (9) Cirrhosis: Code(s): K74.60 - Unspecified cirrhosis of liver Status: Acute Assessment and Plan: Patient has a history of cirrhosis and also was treated for hepatitis-C. CT of the chest showed that the visualized portion of the upper abdomen was unremarkable. His PT a
[2021-09-28 16:46] LABS: Glucose Point of Care 136 mg/dl (65-105)
== END 2021-09-28 17:45 | disposition home or self-care (01) | DRG 987 ==
LOC: ANHED 13:14 → ANHIMU 16:28 → ANH3MEDSUR 09-26 07:31 → ANHIMU 09-30 12:20
PROVIDERS: Internal Medicine Cardiovascular Disease; Physician Assistant; Student in an Organized Health Care Education/Training Program; Urology; Admitting Provider Internal Medicine; Emergency Provider Emergency Medicine; Visit Provider Internal Medicine
PROC: 0TCB8ZZ Extirpation of Matter from Bladder, Via Natural or Artificial Opening Endoscopic (ICD-10-PCS; CPT 52001; principal; 2021-09-26 12:30)
DX: I11.0 Hypertensive heart disease with heart failure (principal); I50.33 Acute on chronic diastolic (congestive) heart failure; J96.01 Acute respiratory failure with hypoxia; I31.3 Pericardial effusion (noninflammatory); J81.1 Chronic pulmonary edema; I48.92 Unspecified atrial flutter; K74.60 Unspecified cirrhosis of liver; E87.5 Hyperkalemia; E11.9 Type 2 diabetes mellitus without complications; I48.0 Paroxysmal atrial fibrillation; G20 Parkinson's disease; Z87.891 Personal history of nicotine dependence; Z79.899 Other long term (current) drug therapy; Z79.84 Long term (current) use of oral hypoglycemic drugs; N32.0 Bladder-neck obstruction; N35.919 Unspecified urethral stricture, male, unspecified site; R31.0 Gross hematuria; N40.0 Benign prostatic hyperplasia without lower urinary tract symptoms; K21.9 Gastro-esophageal reflux disease without esophagitis; E78.5 Hyperlipidemia, unspecified; Z86.19 Personal history of other infectious and parasitic diseases; Z82.49 Family history of ischemic heart disease and other diseases of the circulatory system; Z80.0 Family history of malignant neoplasm of digestive organs; Z20.822 Contact with and (suspected) exposure to COVID-19
CPT/HCPCS: 36415; 71046; 71275; 76775; 80048; 80053; 80162; 81001; 82140; 82607; 82948; 83036; 83605; 83735; 83880; 84443; 84484; 85025; 85027; 85610; 85730; 87040; 87804; 92611; 93005; 93306; 96374; 97110; 97161; 97165; 97530; 97535; 99213; 99291; A9270; C1769; C9803; G0378; G0463; J0690; J1940; J2704; J3010; J7030; J7120; Q9967; U0003; U0005

== ENCOUNTER 2021-09-30 17:57 | Emergency (ER) | payer MEDICARE, OTHER, SELFPAY ==
[2021-09-30 18:17] VITALS: BP 103/51; PULSE 80; RESP 14; TEMP 36.7; O2SAT 95
[2021-09-30 20:41] LABS: Add Urine Microscopic? YES; Appearance Urine Slightly Cloudy (Clear); Bilirubin Urine 1+ (Negative); Blood Urine 3+ (Negative); Color Urine Brown (Yellow); Glucose Urine UA 2+ mg/dL (Negative); Ketones Urine Trace mg/dL (Negative); Leukocyte Esterase Ur 1+ LEU/UL (Negative); Nitrate Urine Negative (Negative); Protein Urine 2+ mg/dL (Negative)
[2021-09-30 20:50] LABS: Bacteria Urine Trace /hpf; RBC Urine >75 /hpf (0-2); WBC Urine 16-20 /hpf
--- NOTE | 2021-09-30 21:11 | ED.MALEGU ---
HPI - Male Genitourinary General Chief complaint: Urogenital-Male Stated complaint: CATHETHER LEAKING Time Seen by Provider: 09/30/21 20:02 Source: RN notes reviewed History of Present Illness HPI Narrative: Patient presents emergency department from home for Durand malfunction. Per the patient's the patient had wet underwear and pants earlier today with leaking around the Durand catheter at this time that is resolved and the patient is draining urine. Per the patient patient had recent cystoscopy is followed by Dr. Parr he has noted occasional clumps in the urine states he does have an appointment with urology next week. He denies any fever chills abdominal pain nausea vomiting or any other symptoms Related Data Home Medications Medication Instructions Recorded Confirmed buspirone 10 mg PO TID 09/23/21 09/23/21 carbidopa-levodopa 1.5 tablet PO TID 09/23/21 09/23/21 cholecalciferol (vitamin D3) 75 mcg PO DAILY 09/23/21 09/23/21 clobetasol 1 applic TOPICAL BID PRN 09/23/21 09/23/21 cyanocobalamin (vitamin B-12) 1,000 mcg PO DAILY 09/23/21 09/23/21 diclofenac sodium 4 g TOPICAL QID 09/23/21 09/23/21 empagliflozin 12.5 mg PO DAILY 09/23/21 09/23/21 ezetimibe 10 mg PO DAILY 09/23/21 09/23/21 gabapentin 600 mg PO TID 09/23/21 09/23/21 glipizide 5 mg PO BID 09/23/21 09/23/21 hydrocodone-acetaminophen 1 tablet PO DAILY PRN 09/23/21 09/23/21 lidocaine 1 patch TOPICAL DAILY PRN 09/23/21 09/23/21 metformin 1,000 mg PO BID 09/23/21 09/23/21 metoprolol tartrate 12.5 mg PO BID 09/23/21 09/23/21 omeprazole 20 mg PO QAM 09/23/21 09/23/21 sertraline 200 mg PO DAILY 09/23/21 09/23/21 tamsulosin 0.4 mg PO DAILY 09/23/21 09/23/21 Allergies Allergy/AdvReac Type Severity Reaction Status Date / Time No Known Allergies Allergy Verified 09/23/21 11:05 Review of Systems Review of Systems: Gen.: Denies fevers or chills ENT: Denies congestion Respiratory: Denies shortness of breath CV: Denies chest pain GI: Denies abdominal pain nausea, emesis see HPI Musculoskeletal: Denies back pain or muscle pain Neuro: Denies numbness, tingling, weakness or focal weakness Skin: Denies rash Except as documented, all other systems reviewed and negative [facility] Past Medical History Medical History Benign prostatic hyperplasia Cirrhosis Gastroesophageal reflux disease Hepatitis C Treated in 2007. Hyperlipidemia Hypertension Parkinsons disease Paroxysmal atrial fibrillation Prostate cancer Status post radiation seed implants. Type 2 diabetes mellitus Surgical History Surgical History History of bilateral cataract extraction History of shoulder surgery History of spinal surgery Lumbar and cervical fusions. Family History Family History Mother Acute myocardial infarction Father Colon cancer Social History Social History Social History: Surrogate decision maker: Giovana Ayers, . Code status: Full code. Smoking packs per day: 2 Smoking cigarettes per day: 40.0 Years smoked: 25 Smoking pack-years: 50.00 Smoking status: Former smoker Smoking end date: 05/21/79 Alcohol intake: current Alcohol use details: Very infrequent alcohol use. Additional living arrangements comments: The patient lives with his in [place]. Additional occupation/education comments: Retired [employer]. Spiritual care concerns: No Exam Narrative: APPEARANCE: No acute distress, nontoxic, resting in bed EYES: EOMI HEENT: Normocephalic, atraumatic, OMM RESPIRATORY: No respiratory distress Clear to auscultation bilaterally with no rhonchi wheezing or rales. CARDIOVASCULAR: Regular rate and rhythm without murmurs rubs or gallops. ABDOMINAL: Soft, nontender, nondistended, no rebound or g
[2021-09-30 22:00] VITALS: BP 124/86; PULSE 68; RESP 16; O2SAT 94
== END 2021-09-30 22:01 | disposition home or self-care (01) ==
PROVIDERS: Emergency Provider Emergency Medicine
DX: T83.031A Leakage of indwelling urethral catheter, initial encounter (principal); N40.0 Benign prostatic hyperplasia without lower urinary tract symptoms; K74.60 Unspecified cirrhosis of liver; E11.9 Type 2 diabetes mellitus without complications; E78.5 Hyperlipidemia, unspecified; I10 Essential (primary) hypertension; G20 Parkinson's disease; I48.0 Paroxysmal atrial fibrillation; K21.9 Gastro-esophageal reflux disease without esophagitis; Z86.19 Personal history of other infectious and parasitic diseases; Z85.46 Personal history of malignant neoplasm of prostate; Z98.42 Cataract extraction status, left eye; Z98.41 Cataract extraction status, right eye; Z98.1 Arthrodesis status; Z87.891 Personal history of nicotine dependence; Z79.84 Long term (current) use of oral hypoglycemic drugs; Y84.6 Urinary catheterization as the cause of abnormal reaction of the patient, or of later complication, without mention of misadventure at the time of the procedure
CPT/HCPCS: 81001; 87077; 87086; 87186; 99283

== ENCOUNTER 2021-10-03 08:14 | Outpatient (CLI) | payer MEDICARE, OTHER, SELFPAY ==
[2021-10-03 08:45] LABS: Anion Gap 10 mmol/L (8-16); Blood Urea Nitrogen 33 mg/dL (9-20); Calcium 9.7 mg/dL (8.4-10.2); Carbon Dioxide 28 mmol/L (22-30); Chloride 98 mmol/L (98-107); Estimated Glomerular Filt Rate > 60; Glucose 203 mg/dL (65-110); Potassium 4.2 mmol/L (3.4-5.0); Sodium 136 mmol/L (137-145)
== END 2021-10-03 08:15 | disposition home or self-care (01) ==
LOC: ANHLAB 08:17
PROVIDERS: Visit Provider Internal Medicine
DX: I50.9 Heart failure, unspecified (principal)
CPT/HCPCS: 36415; 80048

== ENCOUNTER 2021-10-11 01:52 | Inpatient (IN) | payer OTHER, MEDICARE, SELFPAY ==
[2021-10-11] VITALS (16 sets, daily range): BP systolic 104–144; BP diastolic 45–84; PULSE 70–99; RESP 14–20; TEMP 35.6–36.8; O2SAT 92–100; BMI 30.9; BMI 31.6
--- NOTE | 2021-10-11 02:24 | ED.MALEGU ---
HPI - Male Genitourinary General Chief complaint: Urogenital-Male Stated complaint: frequent urination Time Seen by Provider: 10/11/21 02:13 Source: patient Mode of arrival: ambulatory Limitations: no limitations History of Present Illness HPI Narrative: Patient is a 81-year-old male complaining of unable to urinate x1 day. Patient states that he can only urinate a little bit, dribbling with increasing urinary frequency and hematuria, which she states has improved. Patient states that he is currently on oral antibiotics due to UTI. Patient states that he had a Durand cath placed when he was admitted here 2 weeks ago was recently removed 5 days ago. Patient was admitted here 2 weeks ago secondary to CHF but he also had urinary retention at that time and had a cystoscopy done by Dr. Parr. Patient denies any abdominal pain, nausea, vomiting, fever or chills. Related Data Home Medications Medication Instructions Recorded Confirmed buspirone 10 mg PO TID 09/23/21 09/23/21 carbidopa-levodopa 1.5 tablet PO TID 09/23/21 09/23/21 cholecalciferol (vitamin D3) 75 mcg PO DAILY 09/23/21 09/23/21 clobetasol 1 applic TOPICAL BID PRN 09/23/21 09/23/21 cyanocobalamin (vitamin B-12) 1,000 mcg PO DAILY 09/23/21 09/23/21 diclofenac sodium 4 g TOPICAL QID 09/23/21 09/23/21 empagliflozin 12.5 mg PO DAILY 09/23/21 09/23/21 ezetimibe 10 mg PO DAILY 09/23/21 09/23/21 gabapentin 600 mg PO TID 09/23/21 09/23/21 glipizide 5 mg PO BID 09/23/21 09/23/21 hydrocodone-acetaminophen 1 tablet PO DAILY PRN 09/23/21 09/23/21 lidocaine 1 patch TOPICAL DAILY PRN 09/23/21 09/23/21 metformin 1,000 mg PO BID 09/23/21 09/23/21 metoprolol tartrate 12.5 mg PO BID 09/23/21 09/23/21 omeprazole 20 mg PO QAM 09/23/21 09/23/21 sertraline 200 mg PO DAILY 09/23/21 09/23/21 tamsulosin 0.4 mg PO DAILY 09/23/21 09/23/21 Allergies Allergy/AdvReac Type Severity Reaction Status Date / Time No Known Allergies Allergy Verified 10/11/21 02:21 Review of Systems Review of Systems: All systems reviewed & are unremarkable except as noted in HPI and below Constitutional: Constitutional: Denies body ache(s), Denies chills, Denies excessive sweating, Denies fatigue, Denies fever(s), Denies headache(s), Denies lethargy, Denies malaise, Denies weakness and Denies weight loss Eyes: Eyes: Denies blurry vision, Denies change in vision and Denies loss of vision ENT: Denies dizziness, Denies ear discharge, Denies headache(s), Denies lip swelling, Denies epistaxis, Denies nasal congestion, Denies neck pain, Denies throat swelling and Denies tongue swelling Cardiovascular: Cardiovascular: Denies chest pain, Denies chest pain at rest, Denies chest pain with activity, Denies diaphoresis, Denies rapid heart rate, Denies edema, Denies irregular heart rhythm, Denies lightheadedness, Denies palpitations, Denies dyspnea and Denies dyspnea on exertion Respiratory: Respiratory: Denies chest congestion, Denies cough, Denies hemoptysis, Denies dyspnea and Denies dyspnea on exertion Gastrointestinal: Gastrointestinal: Denies abdominal pain, Denies melena, Denies hematochezia, Denies diarrhea, Denies nausea, Denies vomiting and Denies hematemesis Musculoskeletal: Musculoskeletal: Denies abnormal gait, Denies deformity, Denies joint swelling, Denies limited range of motion, Denies neck pain and Denies numbness Neurologic: Denies Abnormal speech present, Denies abnormal gait, Denies confusion, Denies dizziness, Denies headache(s), Denies focal weakness, Denies loss of vision, Denies numbness, Denies Other visual disturbances, Denies Sensory deficit (Neuro) and Denies weakness Psychiatric: Psychiatric: Denies confusion, Denies depression, Denies auditory hallucinations, Denies homicidal ideation and Denies suicidal ideation Endocrine: Endocrine: Denies cold intolerance, Denies excessive sweating, Denies fatigue, Denies heat intolerance and Denies palpitations Hematologic/Lymphatic: Hematologic/Lymphatic: Denies ea
[2021-10-11] MEDS: HYDROcodone/acetaminophen (*CRX) 7.5-325 MG TABLET 1 TAB PO (02:26)
--- NOTE | 2021-10-11 06:33 | PC.NURSE ---
Urinalysis results in downtime charting
--- NOTE | 2021-10-11 06:50 | ED.MALEGU ---
HPI - Male Genitourinary General Chief complaint: Urogenital-Male Stated complaint: frequent urination Time Seen by Provider: 10/11/21 02:13 Source: patient Mode of arrival: ambulatory Limitations: no limitations History of Present Illness HPI Narrative: Please see original document this is an addendum Related Data Home Medications Medication Instructions Recorded Confirmed buspirone 10 mg tablet 10 mg PO TID 09/23/21 09/23/21 carbidopa 25 mg-levodopa 100 mg 1.5 tablet PO TID 09/23/21 09/23/21 tablet cholecalciferol (vitamin D3) 75 75 mcg PO DAILY 09/23/21 09/23/21 mcg (3,000 unit) tablet clobetasol 0.05 % topical ointment 1 applic topical BID PRN Pain, Mild 09/23/21 09/23/21 cyanocobalamin (vitamin B-12) 1,000 mcg PO DAILY 09/23/21 09/23/21 1,000 mcg capsule diclofenac sodium 1 % topical gel 4 g topical QID 09/23/21 09/23/21 empagliflozin 25 mg tablet 12.5 mg PO DAILY 09/23/21 09/23/21 ezetimibe 10 mg tablet 10 mg PO DAILY 09/23/21 09/23/21 gabapentin 600 mg tablet 600 mg PO TID 09/23/21 09/23/21 glipizide 5 mg tablet 5 mg PO BID 09/23/21 09/23/21 hydrocodone 5 mg-acetaminophen 325 1 tablet PO DAILY PRN Pain (Scale 09/23/21 09/23/21 mg tablet Score 4-6) lidocaine 5 % topical patch 1 patch topical DAILY PRN Pain 09/23/21 09/23/21 metformin 1,000 mg tablet 1,000 mg PO BID 09/23/21 09/23/21 metoprolol tartrate 25 mg tablet 12.5 mg PO BID 09/23/21 09/23/21 omeprazole 20 mg capsule,delayed 20 mg PO QAM 09/23/21 09/23/21 release sertraline 100 mg tablet 200 mg PO DAILY 09/23/21 09/23/21 tamsulosin 0.4 mg capsule 0.4 mg PO DAILY 09/23/21 09/23/21 Allergies Allergy/AdvReac Type Severity Reaction Status Date / Time No Known Allergies Allergy Verified 10/11/21 02:21 Review of Systems Review of Systems: Please see original H&P this is an addendum [facility] Past Medical History Medical History Benign prostatic hyperplasia Cirrhosis Gastroesophageal reflux disease Hepatitis C Treated in 2007. Hyperlipidemia Hypertension Parkinsons disease Paroxysmal atrial fibrillation Prostate cancer Status post radiation seed implants. Type 2 diabetes mellitus Surgical History Surgical History History of bilateral cataract extraction History of shoulder surgery History of spinal surgery Lumbar and cervical fusions. Family History Family History Mother Acute myocardial infarction Father Colon cancer Social History Social History Social History: Surrogate decision maker: Giovana Ayers, . Code status: Full code. Smoking packs per day: 2 Smoking cigarettes per day: 40.0 Years smoked: 25 Smoking pack-years: 50.00 Smoking status: Former smoker Smoking end date: 05/21/79 Alcohol intake: current Alcohol use details: Very infrequent alcohol use. Additional living arrangements comments: The patient lives with his in [place]. 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 Spiritual care concerns: No Exam Narrative: Please see original H&P there is an addendum Course Vital Signs Vital signs: Vital Signs Temperature 36.4 C 10/11/21 01:54 Pulse Rate 79 10/11/21 01:54 Respiratory Rate 18 10/11/21 01:54 Blood Pressure 119/55 L 10/11/21 01:54 Pulse Oximetry 96 10/11/21 01:54 Oxygen Delivery Room Air 10/11/21 01:54 Temperature 36.4 C 10/11/21 01:54 Pulse Rate 74 10/11/21 06:30 Respiratory Rate 16 10/11/21 06:30 Blood Pressure 108/45 L 10/11/21 06:30 Pulse Oximetry 93 10/11/21 06:30 Oxygen Delivery Room Air 10/11/21 01:54 MDM - Male Genitourinary MDM Narrative Medical decision making narrative: Patient continues to have gross hematuria with clots after CBI. Patient will need to be admitted
[2021-10-11 07:00] LABS: Basophils Absolute Auto 0.1 K/mm3 (0.0-0.1); Basophils Percent Auto 0.5 % (0.2-1.2); Eosinophils Absolute Auto 0.5 K/mm3 (0-0.3); Eosinophils Percent Auto 3.7 % (0-4.4); Hematocrit 37.8 % (42.0-52.0); Hemoglobin 11.9 g/dL (14.0-18.0); Immature Granulocyte Percent A 0.7 % (0-0.5); Lymphocytes Absolute Auto 3.13 K/mm3 (0.9-3.2); Lymphocytes Percent Auto 21.4 % (18.3-44.2); Mean Corpuscular HGB Conc 31.5 g/dl (32-36); Mean Corpuscular Hemoglobin 27.5 pg (26-34); Mean Corpuscular Volume 87.5 fl (80-100); Mean Platelet Volume 9.9 fl (7.4-10.4); Monocytes Absolute Auto 0.5 K/mm3 (0.1-0.6); Monocytes Percent Auto 3.6 % (2.6-8.5); Neutrophils Absolute Auto 10.3 K/mm3 (1.3-6.7); Neutrophils Percent Auto 70.1 % (45.5-73.1); Platelet Count Result 380 k/mm3 (150-375); Red Blood Count 4.32 M/mm3 (4.6-6.20); Red Cell Distribution Width 14.1 % (11.5-14.5); White Blood Count 14.7 K/mm3 (4.5-10.0)
[2021-10-11 07:03] LABS: Anion Gap 10 mmol/L (8-16); Blood Urea Nitrogen 43 mg/dL (9-20); Calcium 9.4 mg/dL (8.4-10.2); Carbon Dioxide 27 mmol/L (22-30); Chloride 97 mmol/L (98-107); Estimated CRCL calculation 35 ml/min; Estimated Glomerular Filt Rate 34; Glucose 141 mg/dL (65-110); Potassium 4.4 mmol/L (3.4-5.0); Sodium 134 mmol/L (137-145)
[2021-10-11 07:06] LABS: Appearance Urine Turbid (Clear); Color Urine Red (Yellow)
[2021-10-11 07:07] LABS: Add Urine Microscopic? YES; Bilirubin Urine 3+ (Negative); Blood Urine 3+ (Negative); Glucose Urine UA 2+ mg/dL (Negative); Ketones Urine 1+ mg/dL (Negative); Leukocyte Esterase Ur 3+ LEU/UL (Negative); Nitrate Urine Negative (Negative); Protein Urine 3+ mg/dL (Negative); RBC Urine >75 /hpf (0-2); WBC Urine 31-50 /hpf
[2021-10-11 07:08] LABS: Bacteria Urine 3+ /hpf
--- NOTE | 2021-10-11 07:34 | PC.NURSE ---
Pt has received two bags CBI. Urine is draining clear at this time. Okay to stop CBI at this time and monitor urine.
--- NOTE | 2021-10-11 08:38 | ADMGEN ---
This patient, Dante Ayers, was admitted to Medical Room 341-01. Patient/family oriented to hospital policies and general routines including ID bracelet, bed and alarms, visiting hours, pain management, procedures, bathroom and other care routines, personal items, smoking policy, room service/diet, and visiting hours. Information on how to activate the Rapid Response Team has been discussed. Patient/Family are encouraged to report perceived risks to care and to ask questions if they do not understand what they are told or what they should do.
--- NOTE | 2021-10-11 08:43 | WPDURCON ---
Assessment and Plan Assessment and plan (1) Gross hematuria: Code(s): R31.0 - Gross hematuria Status: Acute Plan Obtain ultrasound of bladder. If clots present will need cysto with clot evacuation in the operating room. If no significant clots seen will continue with continuous bladder irrigation. Urology Consult Note HPI Date Seen: 10/11/21 Requesting Physician: Daphnie Blackburn MD Primary Care Provider: [facility] Consult Narrative Reason for consult: Gross hematuria Narrative: Dante Ayers is a 81 year old male who has a history of brachy therapy in the remote past. Patient went into urinary retention at his last hospitalization. He was taken to the operating room on September 24 for dilation of bladder neck contracture. He then developed gross hematuria was taken back by another partner on September 26 for cysto with clot evacuation. Patient was doing well until he had difficulty voiding and developed gross hematuria. He was seen in the emergency room way Durand catheter was placed. He was connected to continuous bladder irrigation but some hematuria persisted. We are asked to evaluate and manage further. Review of Systems Review of Systems: All systems reviewed & are unremarkable except as noted in HPI and below PMFSH Past Medical History Medical History Benign prostatic hyperplasia Cirrhosis Gastroesophageal reflux disease Hepatitis C Treated in 2007. Hyperlipidemia Hypertension Parkinsons disease Paroxysmal atrial fibrillation Prostate cancer Status post radiation seed implants. Type 2 diabetes mellitus Surgical History Surgical History History of bilateral cataract extraction History of shoulder surgery History of spinal surgery Lumbar and cervical fusions. Family History Family History Mother Acute myocardial infarction Father Colon cancer Social History Social History Social History: Surrogate decision maker: Giovana Ayers, . Code status: Full code. Smoking packs per day: 2 Smoking cigarettes per day: 40.0 Years smoked: 25 Smoking pack-years: 50.00 Smoking status: Former smoker Smoking end date: 05/21/79 Alcohol intake: current Alcohol use details: Very infrequent alcohol use. Additional living arrangements comments: The patient lives with his in [place]. 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 Spiritual care concerns: No Meds Home Medications and Allergies Home Medications Medication Instructions Recorded Confirmed Type buspirone 10 mg tablet 10 mg PO TID 09/23/21 09/23/21 History carbidopa 25 mg-levodopa 100 mg 1.5 tablet PO TID 09/23/21 09/23/21 History tablet cholecalciferol (vitamin D3) 75 75 mcg PO DAILY 09/23/21 09/23/21 History mcg (3,000 unit) tablet clobetasol 0.05 % topical ointment 1 applic topical BID PRN Pain, Mild 09/23/21 09/23/21 History cyanocobalamin (vitamin B-12) 1,000 mcg PO DAILY 09/23/21 09/23/21 History 1,000 mcg capsule diclofenac sodium 1 % topical gel 4 g topical QID 09/23/21 09/23/21 History empagliflozin 25 mg tablet 12.5 mg PO DAILY 09/23/21 09/23/21 History ezetimibe 10 mg tablet 10 mg PO DAILY 09/23/21 09/23/21 History gabapentin 600 mg tablet 600 mg PO TID 09/23/21 09/23/21 History glipizide 5 mg tablet 5 mg PO BID 09/23/21 09/23/21 History hydrocodone 5 mg-acetaminophen 325 1 tablet PO DAILY PRN Pain (Scale 09/23/21 09/23/21 History mg tablet Score 4-6) lidocaine 5 % topical patch 1 patch topical DAILY PRN Pain 09/23/21 09/23/21 History metformin 1,000 mg tablet 1,000 mg PO BID 09/23/21 09/23/21 History metoprolol tartrate 25 mg tablet 12.5 mg PO BID 09/23/21 09/23/21 History omeprazole 20 mg capsule,delayed 20
--- NOTE | 2021-10-11 09:06 | PC.NURSE ---
Resumed CBI due to yola blood and large clots in catheter.
--- NOTE | 2021-10-11 10:17 | PC.NURSE ---
Patient's called and notified of upcoming procedure with Dr. Tejeda.
--- NOTE | 2021-10-11 10:25 | WPDHPUPDATE1 ---
History and Physical Update Update Date/Time: 10/11/21 10:25 History and Physical has been reviewed, including an updated exam of the patient. There are NO changes in the patient's condition. Risks, benefits, and alternatives have been discussed and questions answered. Patient agrees to proceed with procedure. Pelvic ultrasound was not completed. Patient had quite a bit of clots and difficulty with irrigation. A sexual proceed with cysto clot evacuation with fulguration and possible transurethral incision of prostate
--- NOTE | 2021-10-11 10:44 | WPDANESEPPF ---
Anes - Initial Pre Proc Eval Procedure: Operation Date: 10/11/21 10:30 Proposed Procedures p Cystoscopy, Evacuation Bladder Clots with Fulguration - Leon Tejeda MD Date/Time: 10/11/21 10:44 Surgeon: Daphnie Blackburn MD Pre Op Diagnosis: Acute urinary retention/gross hematuria Patient Data Age: 81 Gender: M Height: 1.78 m Weight: 100 kg Last Vital Signs Temp 36.4 C 10/11/21 10:25 Pulse 90 10/11/21 10:25 Resp 16 10/11/21 10:25 BP 106/67 10/11/21 10:25 Pulse Ox 94 10/11/21 10:25 O2 Del Method Room Air 10/11/21 10:25 Allergies Allergy/AdvReac Type Severity Reaction Status Date / Time No Known Allergies Allergy Verified 10/11/21 10:27 Home Medications Medication Instructions Recorded Confirmed Type buspirone 10 mg tablet 10 mg PO TID 09/23/21 10/11/21 History carbidopa 25 mg-levodopa 100 mg 1.5 tablet PO TID 09/23/21 10/11/21 History tablet cholecalciferol (vitamin D3) 75 75 mcg PO DAILY 09/23/21 10/11/21 History mcg (3,000 unit) tablet clobetasol 0.05 % topical ointment 1 applic topical BID PRN Pain, Mild 09/23/21 10/11/21 History cyanocobalamin (vitamin B-12) 1,000 mcg PO DAILY 09/23/21 10/11/21 History 1,000 mcg capsule diclofenac sodium 1 % topical gel 4 g topical QID 09/23/21 10/11/21 History empagliflozin 25 mg tablet 12.5 mg PO DAILY 09/23/21 10/11/21 History ezetimibe 10 mg tablet 10 mg PO DAILY 09/23/21 10/11/21 History gabapentin 600 mg tablet 600 mg PO TID 09/23/21 10/11/21 History glipizide 5 mg tablet 5 mg PO BID 09/23/21 10/11/21 History hydrocodone 5 mg-acetaminophen 325 1 tablet PO DAILY PRN Pain 09/23/21 10/11/21 History mg tablet lidocaine 5 % topical patch 1 patch topical DAILY PRN Pain 09/23/21 10/11/21 History metformin 1,000 mg tablet 1,000 mg PO BID 09/23/21 10/11/21 History metoprolol tartrate 25 mg tablet 12.5 mg PO BID 09/23/21 10/11/21 History omeprazole 20 mg capsule,delayed 20 mg PO QAM 09/23/21 10/11/21 History release sertraline 100 mg tablet 200 mg PO DAILY 09/23/21 10/11/21 History tamsulosin 0.4 mg capsule 0.4 mg PO DAILY 09/23/21 10/11/21 History digoxin 250 mcg (0.25 mg) tablet 250 mcg PO QAM #30 tabs 09/28/21 10/11/21 Rx ([facility]) furosemide 40 mg tablet 40 mg PO BID #60 tabs 09/28/21 10/11/21 Rx lisinopril 5 mg tablet 5 mg PO QAM #30 tabs 09/28/21 10/11/21 Rx cephalexin 500 mg capsule 500 mg PO Q12H 5 days #10 caps 10/11/21 Rx Laboratory Tests 10/11/21 10/11/21 10/11/21 02:52 06:21 06:21 WBC 14.7 K/mm3 H K/mm3 (4.5-10.0) RBC 4.32 M/mm3 L M/mm3 (4.6-6.20) Hgb 11.9 g/dL L g/dL (14.0-18.0) Hct 37.8 % L % (42.0-52.0) MCV 87.5 fl fl (80-100) MCH 27.5 pg pg (26-34) MCHC 31.5 g/dl L g/dl (32-36) RDW 14.1 % % (11.5-14.5) Plt Count 380 k/mm3 H k/mm3 (150-375) MPV 9.9 fl fl (7.4-10.4) Immature Gran % (Auto) 0.7 % H % (0-0.5) Neut % (Auto) 70.1 % % (45.5-73.1) Lymph % (Auto) 21.4 % % (18.3-44.2) [place] % (Auto) 3.6 % % (2.6-8.5) Eos % (Auto) 3.7 % % (0-4.4) Baso % (Auto) 0.5 % % (0.2-1.2) Lymph # (Auto) 3.13 K/mm3 K/mm3 (0.9-3.2) [place] # (Auto) 0.5 K/mm3 K/mm3 (0.1-0.6) Eos # (Auto) 0.5 K/mm3 H K/mm3 (0-0.3) Baso # (Auto) 0.1 K/mm3 K/mm3 (0.0-0.1) Abs Immat Gran (auto) 0.10 K/mm3 H K/mm3 (0.00-0.031) Absolute Neuts (auto) 10.3 K/mm3 H K/mm3 (1.3-6.7) Absolute Nucleated RBC 0.0 K/mm3 K/mm3 (0.0-0.012) Nucleated RBC % 0.0 % % (0.0-0.2) Sodium 134 mmol/L L mmol/L (137-145) Potassium 4.4 mmol/L mmol/L (3.4-5.0) Chloride 97 mmol/L L mmol/L (98-107) Carbon Dioxide 27 mmol/L mmol/L (22-30) Anion Gap 10 mmol/L mmol/L (8-16) BUN 43 mg/dL H D mg/dL (9-20) Creatinine 1.90
[2021-10-11] MEDS: fentaNYL CITRATE INJ (*CRX) 100 MCG/2 ML VIAL 25 MCG IV PUSH ×4 (10:49→11:10)
[2021-10-11] MEDS: LACTATED RINGERS 1,000 ML 30 ML IV CONT (10:49)
[2021-10-11] MEDS: ceFAZolin SODIUM 1 GM VIAL 2 GM IV PUSH (12:14)
[2021-10-11] MEDS: LIDOCAINE HCL 2% GEL UROJET 10 ML PKG MUCOUS MEM (12:28)
--- NOTE | 2021-10-11 12:30 | W.PM.PROC2 ---
Procedure Note - Detailed Date of Procedure 10/11/21 Pre-op Diagnosis Acute urinary retention/gross hematuria Post-op Diagnosis Same Procedure Performed Cystoscopy with clot evacuation and fulguration of prostatic bladder neck Surgeon Leon Tejeda MD Anesthesia General Findings Proximally 500 cc of clot with oozing from the prostate at the bladder neck area Description of Procedure Patient is taken to the operative suite and correctly identified. Once anesthesia was obtained was placed in dorsal lithotomy position prepped and draped usual sterile fashion. Twenty-two Guyanese scope was inserted in the bladder direct vision. His prostate some vascularity to it. Upon entering the bladder there was significant amount of clot present. We went ahead and evacuated this using a Gerardo syringe. Approximately 500 cc were removed. Reinspection revealed no growths in the bladder. There was some oozing at the bladder neck area and prostatic fossa. We then exchanged the scope out for a 24 Guyanese resectoscope sheath. Using a 5 mm rollerball we fulgurated the bladder neck from 3:00 a.m. to 7 o'clock position. There appeared to be good hemostasis at termination of this procedure. 2% viscous lidocaine was inserted urethra. Twenty Guyanese [address] was placed with 15 cc in the balloon. This was connected to continuous bladder irrigation with normal saline. Patient is taken recovery stable condition. Estimated Blood Loss 0 Drains Yes Packing No Pathology None sent Complications No immediate complications Condition Stable Disposition PACU
[2021-10-11 13:13] LABS: Glucose Point of Care 143 mg/dl (65-105)
--- NOTE | 2021-10-11 14:18 | PM.IMHP ---
H&P: HPI History of Present Illness Date/Time: 10/11/21 14:18 Chief Complaint: Hematuria Narrative: 80yo male with hx of Parkinson's,HTN, Cirrhosis, pAFib (not on anticoag), CKD and DM here for hematuria. Patient was hospitalized here September 23 shortness of breath. It was felt that he had CHF exacerbation related to tachycardia from being off is digoxin recently. Patient has a history of prostate cancer status post brachytherapy. During that last admission, he had difficulty voiding that progressed to urine retention. 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 He did develop hematuria and a renal ultrasound showed echogenic material surrounding the Durand in the bladder. He underwent clot evacuation from the bladder on September 26 and he tolerated this well. Hematuria cleared and he was discharged home with Durand catheter on September 28. Patient was seen in the ED on September 30 for leaking around Durand catheter. Urine culture did grow Morganella but no abx at the time. Patient had the Durand catheter removed on October 06. He did well for about a day but then began to have dysuria, urinary frequency with voiding small volumes and was 'grunting' to void. Urology was called and Bactrim DS x 3 days was called in. He has completed this coarse of abx. He developed hematuria about 1 day prior to admission. Symptoms worsened and patient presented to the emergency room for evaluation. On presentation, vital signs were stable and patient was afebrile. White count was elevated at 14.7K and hemoglobin was stable. Acute kidney injury with BUN 43 and creatinine 1.9. Urinalysis showed gross hematuria and a urine culture was sent. Patient was given [place] for pain. He started on IV fluids. He was seen by Urology and taken to the OR. Patient underwent cystoscopy with clot evacuation and fulguration of prostatic bladder neck. Proximally 500 mL of clot with oozing from the prostate at the bladder neck area were noted. Patient tolerated the procedure well. He was admitted to medical floor postoperatively. Review of Systems Review of Systems: All systems reviewed & are unremarkable except as noted in HPI and below PMFSH Past Medical History Medical History Benign prostatic hyperplasia Cirrhosis Gastroesophageal reflux disease Hepatitis C Treated in 2007. Hyperlipidemia Hypertension Parkinsons disease Paroxysmal atrial fibrillation Prostate cancer Status post radiation seed implants. Type 2 diabetes mellitus Surgical History Surgical History History of bilateral cataract extraction History of shoulder surgery History of spinal surgery Lumbar and cervical fusions. Family History Family History Mother Acute myocardial infarction Father Colon cancer Social History Social History Social History: Surrogate decision maker: Giovana Ayers, . Code status: Full code. Smoking packs per day: 2 Smoking cigarettes per day: 40.0 Years smoked: 25 Smoking pack-years: 50.00 Smoking status: Former smoker Tobacco type: cigarettes Smoking end date: 05/21/79 Alcohol intake: former Alcohol use details: Very infrequent alcohol use. Substance use: never Additional living arrangements comments: The patient lives with his in [place]. 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 Spiritual care concerns: No Meds Home Medications and Allergies Home Medications Medication Instructions Recorded Confirmed Type buspirone 10 mg tablet 10 mg PO TID 09/23/21 10/11/21 History carbidopa 25 mg-levodopa 100 mg 1.5 tablet PO TID 09/23/21 10/11/21 History tablet cholecalciferol (vitamin D3) 75 75 mcg PO DA
[2021-10-11] MEDS: HYDROcodone/acetaminophen (*CRX) 5-325 MG TABLET 1 TAB PO (14:22)
--- NOTE | 2021-10-11 15:10 | PCNSR ---
On 10/11/21, the student, Kimber Marina, provided care and completed [facility] documentation on this patient. I have reviewed the student's documentation and agree with the findings.
[2021-10-11 15:25] LABS: Glucose Point of Care 167 mg/dl (65-105)
[2021-10-11 16:54] LABS: Glucose Point of Care 367 mg/dl (65-105)
[2021-10-11] MEDS: busPIRone HCL 10 MG TABLET PO (17:13)
[2021-10-11] MEDS: CARBIDOPA/LEVODOPA 12.5/50 MG TABLET 1 TABLET PO (17:13)
[2021-10-11] MEDS: GABAPENTIN 300 MG CAPSULE 600 MG PO (17:14)
[2021-10-11] MEDS: CARBIDOPA/LEVODOPA 25/100 MG TABLET 1 TABLET PO (17:14)
--- NOTE | 2021-10-11 19:54 | PC.NURSE ---
CBI intake through the shift was 28660 mL, output was 15924. 650 urine output charted on garcia output.
[2021-10-11] MEDS: METOPROLOL TARTRATE 12.5 MG TABLET PO (21:00)
[2021-10-11 21:15] LABS: Glucose Point of Care 207 mg/dl (65-105)
[2021-10-12 05:11] VITALS: BP 123/64; PULSE 72; RESP 16; TEMP 36.1; O2SAT 96
[2021-10-12 06:12] LABS: Basophils Absolute Auto 0.1 K/mm3 (0.0-0.1); Basophils Percent Auto 0.5 % (0.2-1.2); Eosinophils Absolute Auto 0.3 K/mm3 (0-0.3); Eosinophils Percent Auto 2.3 % (0-4.4); Hemoglobin 10.7 g/dL (14.0-18.0); Immature Granulocyte Percent A 0.8 % (0-0.5); Lymphocytes Absolute Auto 2.57 K/mm3 (0.9-3.2); Lymphocytes Percent Auto 19.9 % (18.3-44.2); Mean Corpuscular HGB Conc 30.6 g/dl (32-36); Mean Corpuscular Hemoglobin 27.4 pg (26-34); Mean Corpuscular Volume 89.7 fl (80-100); Monocytes Absolute Auto 0.5 K/mm3 (0.1-0.6); Monocytes Percent Auto 3.8 % (2.6-8.5); Neutrophils Absolute Auto 9.4 K/mm3 (1.3-6.7); Neutrophils Percent Auto 72.7 % (45.5-73.1); Platelet Count Result 321 k/mm3 (150-375); Red Cell Distribution Width 14.4 % (11.5-14.5); White Blood Count 12.9 K/mm3 (4.5-10.0)
[2021-10-12 06:25] LABS: Alanine Aminotransferase 12 U/L (6-50); Albumin Level 3.5 g/dL (3.5-5.1); Alkaline Phosphatase 96 U/L (38-126); Anion Gap 5 mmol/L (8-16); Aspartate Amino Transferase 19 U/L (17-59); Bilirubin,Total 0.4 mg/dL (0.2-1.3); Blood Urea Nitrogen 31 mg/dL (9-20); Carbon Dioxide 30 mmol/L (22-30); Chloride 100 mmol/L (98-107); Estimated CRCL calculation 49 ml/min; Estimated Glomerular Filt Rate 53; Glucose 133 mg/dL (65-110); Potassium 4.2 mmol/L (3.4-5.0); Sodium 135 mmol/L (137-145)
[2021-10-12 06:49] LABS: Digoxin 0.8 ng/mL (0.8-2.0)
--- NOTE | 2021-10-12 07:26 | WPDANESPN ---
Anes - Prog Note Post-Op Date/Time: 10/12/21 07:26 Cardiovascular status: normal Respiratory status: normal Airway patency: baseline Mental status: baseline Post-Op hydration status: normal Vital Signs: Last Vital Signs Temp 97 F L 10/12/21 05:11 Pulse 72 10/12/21 05:11 Resp 16 10/12/21 05:11 BP 123/64 10/12/21 05:11 Pulse Ox 96 10/12/21 05:11 O2 Del Method Room Air 10/11/21 13:20 O2 Flow Rate 6 10/11/21 12:50 Pain Score (VAS): 0 I/O: Intake & Output 10/11/21 10/11/21 10/12/21 15:59 23:59 07:59 Intake Total 2200 300 150 Output Total 2400 650 Balance -200 -350 150 Laboratory Tests 10/12/21 05:20 10/12/21 05:20 10/11/21 10/11/21 10/11/21 13:09 13:47 16:45 WBC RBC Hgb Hct MCV MCH MCHC RDW Plt Count MPV Immature Gran % (Auto) Neut % (Auto) Lymph % (Auto) [place] % (Auto) Eos % (Auto) Baso % (Auto) Lymph # (Auto) [place] # (Auto) Eos # (Auto) Baso # (Auto) Abs Immat Gran (auto) Absolute Neuts (auto) Absolute Nucleated RBC Nucleated RBC % Sodium Potassium Chloride Carbon Dioxide Anion Gap BUN Creatinine Estim Creat Clear Calc Estimated GFR Glucose POC Capillary Glucose 143 H 167 H 367 H Calcium Total Bilirubin AST ALT Alkaline Phosphatase Total Protein Albumin Digoxin 10/11/21 10/12/21 10/12/21 20:53 05:20 05:20 WBC 12.9 H RBC 3.90 L Hgb 10.7 L Hct 35.0 L MCV 89.7 MCH 27.4 MCHC 30.6 L RDW 14.4 Plt Count 321 MPV 10.0 Immature Gran % (Auto) 0.8 H Neut % (Auto) 72.7 Lymph % (Auto) 19.9 [place] % (Auto) 3.8 Eos % (Auto) 2.3 Baso % (Auto) 0.5 Lymph # (Auto) 2.57 [place] # (Auto) 0.5 Eos # (Auto) 0.3 Baso # (Auto) 0.1 Abs Immat Gran (auto) 0.10 H Absolute Neuts (auto) 9.4 H Absolute Nucleated RBC 0.0 Nucleated RBC % 0.0 Sodium 135 L Potassium 4.2 Chloride 100 Carbon Dioxide 30 Anion Gap 5 L BUN 31 H D Creatinine 1.30 Estim Creat Clear Calc 49 Estimated GFR 53 L Glucose 133 H POC Capillary Glucose 207 H Calcium 9.0 Total Bilirubin 0.4 AST 19 ALT 12 Alkaline Phosphatase 96 Total Protein 7.0 Albumin 3.5 Digoxin 10/12/21 05:20 WBC RBC Hgb Hct MCV MCH MCHC RDW Plt Count MPV Immature Gran % (Auto) Neut % (Auto) Lymph % (Auto) [place] % (Auto) Eos % (Auto) Baso % (Auto) Lymph # (Auto) [place] # (Auto) Eos # (Auto) Baso # (Auto) Abs Immat Gran (auto) Absolute Neuts (auto) Absolute Nucleated RBC Nucleated RBC % Sodium Potassium Chloride Carbon Dioxide Anion Gap BUN Creatinine Estim Creat Clear Calc Estimated GFR Glucose POC Capillary Glucose Calcium Total Bilirubin AST ALT Alkaline Phosphatase Total Protein Albumin Digoxin 0.8 Post-procedural complaints: none Patient Feedback: Patient satisfied with anesthetic care.
[2021-10-12 07:33] LABS: Glucose Point of Care 138 mg/dl (65-105)
[2021-10-12] MEDS: CHOLECALCIFEROL 1,000 UNITS TABLET 3000 UNITS PO (08:07)
[2021-10-12] MEDS: METOPROLOL TARTRATE 12.5 MG TABLET PO ×2 (08:07→20:53)
[2021-10-12] MEDS: SERTRALINE HCL 50 MG TABLET 200 MG PO (08:07)
[2021-10-12] MEDS: GABAPENTIN 300 MG CAPSULE 600 MG PO ×3 (08:07→17:07)
[2021-10-12] MEDS: CARBIDOPA/LEVODOPA 25/100 MG TABLET 1 TABLET PO ×3 (08:08→17:06)
[2021-10-12] MEDS: CYANOCOBALAMIN 1,000 MCG TABLET 1000 MCG PO (08:08)
[2021-10-12] MEDS: PANTOPRAZOLE 40 MG TABLET PO (08:08)
[2021-10-12] MEDS: TAMSULOSIN HCL 0.4 MG CAPSULE PO (08:08)
[2021-10-12] MEDS: EZETIMIBE 10 MG TABLET PO (08:08)
[2021-10-12] MEDS: CARBIDOPA/LEVODOPA 12.5/50 MG TABLET 1 TABLET PO ×3 (08:08→17:06)
[2021-10-12] MEDS: EMPAGLIFLOZIN 12.5 MG TABLET PO (08:08)
[2021-10-12] MEDS: busPIRone HCL 10 MG TABLET PO ×3 (08:08→17:06)
--- NOTE | 2021-10-12 10:24 | PM.IMPN ---
Progress Note: A&P Assessment and Plan (1) Gross hematuria: Code(s): R31.0 - Gross hematuria Status: Acute Assessment and Plan: Patient has a history of prostate cancer status post brachytherapy.? During his last admission, he had difficulty voiding that progressed to near retention. 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 This was dilated at the bedside but later developed hematuria and found to have clot within the bladder requiring clot evacuation on 09/26.? He went home with Durand that was removed a five days before this admission. He was having trouble voiding requiring him to bear down. He developed hematuria with cystoscopy 10/11 showing oozing from the prostate as the etiology of his hematuria. Clot was evacuated and fulguration was performed. Hgb 11.9 on admission and has dropped to 10.7 felt anemia related to acute blood loss. Weaning off CBI. Appreciate urology input. Follow HH. (2) KELLY (acute kidney injury): Code(s): N17.9 - Acute kidney failure, unspecified Status: Acute Assessment and Plan: Baseline creatinine runs 1.1-1.3 range. Creatinine 1.9 on admission related to urine retention from the clot. Bactrim and/or current UTI also may have contributed to his acute kidney injury. Creatinine back down to baseline related to resolution of the urine obstruction. Continue to monitor. (3) UTI (urinary tract infection): Code(s): N39.0 - Urinary tract infection, site not specified Status: Acute Assessment and Plan: Urine culture grew out Morganella on September 30. He was treated with Bactrim about a week later for 3 days. Urinalysis noted and concerning for UTI so Rocephin started. WBC better. Urine culture pending. (4) CHF (congestive heart failure): Qualifiers: Heart failure chronicity: acute on chronic Heart failure type: diastolic Qualified Code(s): I50.33 - Acute on chronic diastolic (congestive) heart failure Code(s): I50.9 - Heart failure, unspecified Status: Acute Assessment and Plan: Patient remains euvolemic. Acute kidney injury improved. Will resume Lasix and lisinopril. Add blood pressure parameters. (5) Paroxysmal atrial fibrillation: Code(s): I48.0 - Paroxysmal atrial fibrillation Status: Acute Assessment and Plan: Patient has paroxysmal AFib. He is not on anticoagulation. Digoxin on hold due to his acute kidney injury. Acute kidney injury improved so will resume digoxin. (6) Type 2 diabetes mellitus: Code(s): E11.9 - Type 2 diabetes mellitus without complications Status: Acute Assessment and Plan: A1c 6.9. Glucose stable. Continue sliding scale protocol. Hypoglycemia protocol available as needed. Continue Jardiance. (7) Parkinsons disease: Code(s): G20 - Parkinson's disease Status: Acute Assessment and Plan: Stable. Sinemet resumed. PT and OT ordered. Mood stable. Continue Zoloft and BusPar. Subjective Date/time seen: 10/12/21 10:24 Interval history: 81yo male with hx of Parkinson's, HTN, Cirrhosis, pAFib (not on anticoag), CKD and DM here for hematuria.? No issues overnight. No nausea or vomiting. He denies chest pain or shortness of breath. Eating normally. He has not been up walking yet. Exam Narrative: AF 97.0 123/64 72 16 96% ra Gen - NARD Chest - CTA bilaterally, nml RR CV - RRR. S1-S2. Abd - soft, NT/ND, +BS - Durand secured with orange-yellow urine Ext - no pedal edema. Psych - normal mood and affect Skin - warm and dry. Objective Data Vital Signs Vital Signs: Vital Signs - 24 hr 10/11/21 10:25 10/11/21 12:38 10/11/21 12:50 Temperature 97.6 F 97.4 F L Pulse Rate 90 79 83 Respiratory Rate 16 20 16 Blood Pressure 106/67 134/70 143/68 H Pulse Oximetry 94 100 100 Oxygen Delivery Room Air Simple Face Mask Simple Face Mask Oxygen Flow Rate 6 6
--- NOTE | 2021-10-12 11:03 | PCOTNOTE ---
Attempted to evaluate pt. for occupational therapy. Pt. politely declined to participate in therapy at this time due to fatigue. Will follow.
[2021-10-12] MEDS: polyethylene glycoL 3350 17 GM POWD.PACK PO (11:16)
[2021-10-12 11:19] LABS: Glucose Point of Care 188 mg/dl (65-105)
[2021-10-12] MEDS: DIGOXIN 250 MCG TABLET PO (12:10)
[2021-10-12 14:00] VITALS: BP 125/59; PULSE 72; RESP 16; TEMP 36.8; O2SAT 95
--- NOTE | 2021-10-12 14:29 | PCPTNOTE ---
Attempted PT eval. Patient refused stated I just dont feel good. Patient declined PT today despite encouragement. RN aware. Will Follow.
--- NOTE | 2021-10-12 15:54 | PCOTNOTE ---
Attempted to evaluated pt for occupational therapy in PM. Pt. declined to participate today.
[2021-10-12 16:38] LABS: Glucose Point of Care 155 mg/dl (65-105)
[2021-10-12] MEDS: FUROSEMIDE 40 MG TABLET PO (17:06)
[2021-10-12] MEDS: metFORMIN HCL 500 MG TABLET 1000 MG PO (17:07)
[2021-10-12] MEDS: glipiZIDE 5 MG TABLET PO (17:08)
[2021-10-12 19:46] VITALS: PULSE 90; O2SAT 91
[2021-10-12 20:42] VITALS: BP 110/64; PULSE 90; RESP 16; TEMP 36.3; O2SAT 95
[2021-10-12 20:52] LABS: Glucose Point of Care 139 mg/dl (65-105)
[2021-10-12 20:53] VITALS: PULSE 90
[2021-10-13 05:44] VITALS: BP 107/64; PULSE 79; RESP 18; TEMP 36.6; O2SAT 95
[2021-10-13 06:21] LABS: Hematocrit 35.2 % (42.0-52.0); Hemoglobin 10.8 g/dL (14.0-18.0); Mean Corpuscular HGB Conc 30.7 g/dl (32-36); Mean Corpuscular Hemoglobin 27.3 pg (26-34); Mean Corpuscular Volume 89.1 fl (80-100); Platelet Count Result 292 k/mm3 (150-375); Red Blood Count 3.95 M/mm3 (4.6-6.20); Red Cell Distribution Width 14.3 % (11.5-14.5); White Blood Count 11.8 K/mm3 (4.5-10.0)
[2021-10-13 06:30] LABS: Albumin Level 3.6 g/dL (3.5-5.1); Anion Gap 7 mmol/L (8-16); Blood Urea Nitrogen 27 mg/dL (9-20); Calcium 8.7 mg/dL (8.4-10.2); Carbon Dioxide 26 mmol/L (22-30); Chloride 102 mmol/L (98-107); Estimated CRCL calculation 49 ml/min; Estimated Glomerular Filt Rate 53; Glucose 139 mg/dL (65-110); Magnesium 1.7 mg/dL (1.6-2.3); Phosphorus 2.9 mg/dL (2.5-4.5); Potassium 4.1 mmol/L (3.4-5.0); Sodium 135 mmol/L (137-145)
[2021-10-13 07:43] LABS: Glucose Point of Care 146 mg/dl (65-105)
[2021-10-13] MEDS: SERTRALINE HCL 50 MG TABLET 200 MG PO (08:25)
[2021-10-13] MEDS: TAMSULOSIN HCL 0.4 MG CAPSULE PO (08:25)
[2021-10-13] MEDS: EZETIMIBE 10 MG TABLET PO (08:25)
[2021-10-13] MEDS: FUROSEMIDE 40 MG TABLET PO (08:25)
[2021-10-13] MEDS: CARBIDOPA/LEVODOPA 25/100 MG TABLET 1 TABLET PO ×2 (08:25→13:27)
[2021-10-13] MEDS: CYANOCOBALAMIN 1,000 MCG TABLET 1000 MCG PO (08:25)
[2021-10-13] MEDS: METOPROLOL TARTRATE 12.5 MG TABLET PO (08:25)
[2021-10-13] MEDS: EMPAGLIFLOZIN 12.5 MG TABLET PO (08:25)
[2021-10-13] MEDS: CARBIDOPA/LEVODOPA 12.5/50 MG TABLET 1 TABLET PO ×2 (08:25→13:27)
[2021-10-13] MEDS: GABAPENTIN 300 MG CAPSULE 600 MG PO ×2 (08:25→13:27)
[2021-10-13] MEDS: glipiZIDE 5 MG TABLET PO (08:25)
[2021-10-13] MEDS: lisinopriL 5 MG TABLET PO (08:25)
[2021-10-13] MEDS: DIGOXIN 250 MCG TABLET PO (08:26)
[2021-10-13] MEDS: busPIRone HCL 10 MG TABLET PO ×2 (08:26→13:27)
[2021-10-13] MEDS: PANTOPRAZOLE 40 MG TABLET PO (08:26)
[2021-10-13] MEDS: metFORMIN HCL 500 MG TABLET 1000 MG PO (08:26)
[2021-10-13] MEDS: CHOLECALCIFEROL 1,000 UNITS TABLET 3000 UNITS PO (08:26)
[2021-10-13 11:37] LABS: Glucose Point of Care 155 mg/dl (65-105)
--- NOTE | 2021-10-13 12:44 | WPDUROPN2 ---
Progress Note: A&P Assessment and Plan (1) UTI (urinary tract infection): Code(s): N39.0 - Urinary tract infection, site not specified Status: Acute Assessment and Plan: Urine culture on 10/11/21 negative (2) Acute urinary retention: Code(s): R33.8 - Other retention of urine Status: Acute Assessment and Plan: Will plan to keep garcia in until Sunday and remove in the office at 915am on 10/18/21. He can be discharged home at anytime with a leg bag and a large bag for overngiht. (3) Gross hematuria: Code(s): R31.0 - Gross hematuria Status: Acute Assessment and Plan: Resolved off CBI >12 hours. Time Spent With Patient Time: 15 minutes Subjective Subjective Date/Time Seen: 10/13/21 12:44 POD #2 Cystoscopy with clot evacuation and fulguration of bladder neck. Patient is up with PT this morning and the urine is clear off CBI since last night. He is doing very well. Review of Systems Cardiovascular: Comments: No chest pain Respiratory: Comments: No complaints Gastrointestinal: Comments: Denies abdominal pain Genitourinary: Comments: Catheter is draining and clear. Exam Resp: Effort & Inspection: normal respiratory effort Cardio: Rate: regular rate GI: GI Palp: Yes Soft to palpation and No Tenderness to palpation present (GI) Urinary Catheter: Urinary Catheter: patent and draining and urine clear Extrem: Right lower extremity: no edema Left lower extremity: no edema Objective Data Vital Signs Vital Signs: Vital Signs - 24 hr 10/12/21 14:00 10/12/21 19:46 10/12/21 20:42 Temperature 98.3 F 97.4 F L Pulse Rate 72 90 90 Respiratory Rate 16 16 Blood Pressure 125/59 L 110/64 Pulse Oximetry 95 91 95 Oxygen Delivery Room Air 10/12/21 20:53 10/13/21 05:44 10/13/21 08:31 Temperature 97.9 F Pulse Rate 90 79 Respiratory Rate 18 Blood Pressure 107/64 Pulse Oximetry 95 Oxygen Delivery Room Air 10/13/21 08:48 10/13/21 09:32 Temperature Pulse Rate Respiratory Rate Blood Pressure Pulse Oximetry Oxygen Delivery Room Air Room Air Intake/Output Intake/Output: Intake & Output 10/10/21 10/11/21 10/12/21 10/13/21 23:59 23:59 23:59 23:59 Intake Total 2500 1110 490 Output Total 5800 700 Balance -3300 1110 -210 Meds/Results Medications: Active Medications Generic Name Dose Route Start Last Admin Trade Name Freq PRN Reason Stop Dose Admin Acetaminophen 650 mg 10/11/21 15:16 Acetaminophen 325 Mg Tablet PO Q6H PRN Mild Pain (1-5) Or Fever Hydrocodone Bitart/Acetaminophen 1 tab 10/11/21 15:13 Hydrocodone/Acetaminophen (*Crx) 5-325 Mg Tablet PO DAILY PRN Pain 6-10/10 Buspirone HCl 10 mg 10/11/21 17:00 10/13/21 08:26 Buspirone Hcl 10 Mg Tablet PO 10 mg TID ILDA Administration Carbidopa/Levodopa 1 tablet 10/11/21 17:00 10/13/21 08:25 Carbidopa/Levodopa 25/100 Mg Tablet PO 1 tablet TID ILDA Administration Carbidopa/Levodopa 1 tablet 10/11/21 17:00 10/13/21 08:25 Carbidopa/Levodopa 12.5/50 Mg Tablet PO 1 tablet TID ILDA Administration Cyanocobalamin 1,000 mcg 10/12/21 09:00 10/13/21 08:25 Cyanocobalamin 1,000 Mcg Tablet PO 1,000 mcg DAILY ILDA Administration Dextrose 12.5 gm 10/11/21 15:11 Dextrose 50% 25 Gm/50 Ml Syringe IV PUSH PRN PRN Hypoglycemia Protocol Digoxin 250 mcg 10/12/21 11:35 10/13/21 08:26 Digoxin 250 Mcg Tablet PO 250 mcg QAM ILDA Administration Ezetimibe 10 mg 10/12/21 09:00 10/13/21 08:25 Ezetimibe 10 Mg Tablet PO 10 mg DAILY ILDA Administration Empagliflozin 12.5 mg 10/12/21 09:00 10/13/21 08:25 Empagliflozin 12.5 Mg Tablet PO 12.5 mg DAILY ILDA Administration Furosemide 40 mg 10/12/21 17:00 10/13/21 08:25 Furosemide 40 Mg Tablet PO 40 mg BID ILDA Administration Gabapentin 600 mg 10/11/21 17:00 10/13/21 08:25 Gabapentin 300 M
[2021-10-13 14:00] VITALS: BP 108/83; PULSE 84; RESP 20; TEMP 35.6; O2SAT 93
--- NOTE | 2021-10-13 14:06 | PM.DS ---
DS: Admitting Diagnosis Discharge Date 10/13/21 Admitting Diagnosis Hematuria DS: Discharge Diagnosis Discharge Diagnosis (1) Gross hematuria: Code(s): R31.0 - Gross hematuria Status: Acute Assessment and Plan: Patient has a history of prostate cancer status post brachytherapy.?During his last admission, he had difficulty voiding that progressed to near retention. 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 This was dilated at the bedside but later developed hematuria and found to have clot within the bladder requiring clot evacuation on 09/26.? He went home with Durand that was removed a five days before this admission. He was having trouble voiding requiring him to?bear down. He developed hematuria and presented to the ED for evaluation. He underwent cystoscopy 10/11 showing oozing from the prostate as the etiology of his hematuria.?Clot was evacuated and fulguration was performed. Hgb 11.9 on admission and has dropped to 10.8; felt anemia related to acute blood loss. Treated with CBI. Urine cleared with CBI and was able to weaned off CBI. Appreciate urology input. Home with Durand. (2) KELLY (acute kidney injury): Code(s): N17.9 - Acute kidney failure, unspecified Status: Acute Assessment and Plan: Baseline creatinine runs 1.1-1.3 range.? Creatinine 1.9 on admission related to obstruction/urine retention from the clot.? Bactrim also may have contributed to his acute kidney injury.? Creatinine back down to baseline related to resolution of the urine obstruction.? (3) UTI (urinary tract infection): Code(s): N39.0 - Urinary tract infection, site not specified Status: Acute Assessment and Plan: Urine culture grew out Morganella on September 30.? He was treated with Bactrim about a week later for 3 days which he completed before admission.? Urinalysis noted and concerning for UTI so Rocephin started. WBC better. Urine culture negative so abx stopped. UTI Ruled Out. (4) CHF (congestive heart failure): Qualifiers: Heart failure chronicity: acute on chronic Heart failure type: diastolic Qualified Code(s): I50.33 - Acute on chronic diastolic (congestive) heart failure Code(s): I50.9 - Heart failure, unspecified Status: Acute Assessment and Plan: Patient remained euvolemic.? Acute kidney injury improved with resolution of the obstruction; he did not receive IV fluids.?We were able to resume Lasix and lisinopril.? (5) Paroxysmal atrial fibrillation: Code(s): I48.0 - Paroxysmal atrial fibrillation Status: Acute Assessment and Plan: Patient has paroxysmal AFib.? He is not on anticoagulation.? Digoxin was on hold due to his acute kidney injury.? Acute kidney injury improved so we resumed his digoxin. (6) Type 2 diabetes mellitus: Code(s): E11.9 - Type 2 diabetes mellitus without complications Status: Acute Assessment and Plan: A1c 6.9.? Glucose remained stable.?Glucose was monitored with sliding scale protocol.? Hypoglycemia protocol was available as needed.? We continued Jardiance. (7) Parkinsons disease: Code(s): G20 - Parkinson's disease Status: Acute Assessment and Plan: Stable.? Sinemet was continued. PT and OT ordered and he did well with therapy. Mood remained stable and we continued Zoloft and BusPar. He refused Home Health. DS: Summary Hospital Course Reason for hospitalization: 81yo male with hx of Parkinson's, HTN, Cirrhosis, pAFib (not on anticoag), CKD and DM here for hematuria. Please see H&P for details Hospital Course: Please see above for details of hospital course Status at Discharge Cognitive/behavioral status at discharge: stable Time Spent with Patient Time attestation: Total time spent providing and/or coordinating discharge services: 35 minutes Time spent: Greater than 30 minutes Exam Narrative: AF 97.9
== END 2021-10-13 15:15 | disposition home or self-care (01) | DRG 663 ==
LOC: ANHED 06:54 → ANH3MED 07:14
PROVIDERS: Urology; Admitting Provider Internal Medicine; Emergency Provider Emergency Medicine; Visit Provider Internal Medicine
PROC: 0TCB8ZZ Extirpation of Matter from Bladder, Via Natural or Artificial Opening Endoscopic (ICD-10-PCS; CPT 52001; principal; 2021-10-11 10:30)
DX: N32.89 Other specified disorders of bladder (principal); N17.9 Acute kidney failure, unspecified; D62 Acute posthemorrhagic anemia; I50.32 Chronic diastolic (congestive) heart failure; R31.0 Gross hematuria; R33.8 Other retention of urine; N40.0 Benign prostatic hyperplasia without lower urinary tract symptoms; I11.0 Hypertensive heart disease with heart failure; E11.9 Type 2 diabetes mellitus without complications; I48.0 Paroxysmal atrial fibrillation; K74.60 Unspecified cirrhosis of liver; G20 Parkinson's disease; K21.9 Gastro-esophageal reflux disease without esophagitis; E78.5 Hyperlipidemia, unspecified; Z85.46 Personal history of malignant neoplasm of prostate; Z86.19 Personal history of other infectious and parasitic diseases; Z98.42 Cataract extraction status, left eye; Z98.41 Cataract extraction status, right eye; Z98.1 Arthrodesis status; Z87.891 Personal history of nicotine dependence
CPT/HCPCS: 36415; 80048; 80053; 80069; 80162; 81001; 82948; 83735; 85025; 85027; 87086; 97161; 97165; 99285; A9270; G0378; J0690; J0696; J1100; J2370; J2405; J2704; J3010; J7120

== ENCOUNTER 2022-02-15 12:41 | Outpatient (CLI) | payer MEDICARE, OTHER, SELFPAY ==
[2022-02-15 13:40] LABS: Anion Gap 8 mmol/L (8-16); Blood Urea Nitrogen 24 mg/dL (9-20); Calcium 9.9 mg/dL (8.4-10.2); Carbon Dioxide 27 mmol/L (22-30); Chloride 101 mmol/L (98-107); Estimated Glomerular Filt Rate > 60; Glucose 90 mg/dL (65-110); Potassium 4.6 mmol/L (3.4-5.0); Sodium 136 mmol/L (137-145)
[2022-02-15 14:23] LABS: Digoxin 2.8 ng/mL (0.8-2.0)
== END 2022-02-15 12:42 | disposition home or self-care (01) ==
PROVIDERS: Visit Provider Internal Medicine Cardiovascular Disease
DX: E11.59 Type 2 diabetes mellitus with other circulatory complications (principal); I15.2 Hypertension secondary to endocrine disorders; I48.0 Paroxysmal atrial fibrillation; I48.92 Unspecified atrial flutter
CPT/HCPCS: 36415; 80048; 80162

== ENCOUNTER 2022-04-26 08:59 | Emergency (ER) | payer MEDICARE, OTHER, SELFPAY ==
--- NOTE | ~2022-04-26 | XR_ITS ---
EXAMINATION: XR chest 2V 04/26/2022 09:49 INDICATION: Shortness of breath. PROCEDURE: 2 view chest COMPARISON: 09/23/2021 FINDINGS: The lungs are clear. The cardiomediastinal silhouette is within normal limits. There are no pleural effusions. There is no pneumothorax suspected. There are multiple healed right rib fract ures. Prominent left nipple shadow. 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 IMPRESSION: 1: NO ACUTE CARDIOPULMONARY DISEASE. Reviewed, dictated and finalized at location A. [employer]
[2022-04-26 09:08] VITALS: BP 138/74; PULSE 85; RESP 16; TEMP 36.8; O2SAT 96
--- NOTE | 2022-04-26 09:29 | ED.URI ---
HPI - URI/Sore Throat General Chief Complaint: Upper Respiratory Infection Stated Complaint: COUGH Time Seen by Provider: 04/26/22 09:30 Source: patient and RN notes reviewed Mode of arrival: other (motor scooter) Limitations: no limitations History of Present Illness HPI Narrative: 81-year-old male with history of CHF, diabetes, paroxysmal AFib, Parkinson's disease presented for complaint of cough for 3 days. Endorses occasional productive cough of yellow sputum. He denies increased chest pain, palpitations, edema, shortness of breath, wheezing, nausea, vomiting, diarrhea, fatigue fevers or chills. He follows with his analytics leader, last seen last week. MD elicited complaint: cough Related Data Home Medications Medication Instructions Recorded Confirmed buspirone 10 mg tablet 10 mg PO TID 09/23/21 04/26/22 carbidopa 25 mg-levodopa 100 mg 1.5 tablet PO TID 09/23/21 04/26/22 tablet cholecalciferol (vitamin D3) 75 75 mcg PO DAILY 09/23/21 04/26/22 mcg (3,000 unit) tablet clobetasol 0.05 % topical ointment 1 applic topical BID PRN Pain, Mild 09/23/21 04/26/22 cyanocobalamin (vitamin B-12) 1,000 mcg PO DAILY 09/23/21 04/26/22 1,000 mcg capsule diclofenac sodium 1 % topical gel 4 g topical QID 09/23/21 04/26/22 empagliflozin 25 mg tablet 12.5 mg PO DAILY 09/23/21 04/26/22 ezetimibe 10 mg tablet 10 mg PO DAILY 09/23/21 04/26/22 gabapentin 600 mg tablet 600 mg PO TID 09/23/21 04/26/22 glipizide 5 mg tablet 5 mg PO BID 09/23/21 04/26/22 lidocaine 5 % topical patch 1 patch topical DAILY PRN Pain 09/23/21 04/26/22 metformin 1,000 mg tablet 1,000 mg PO BID 09/23/21 04/26/22 metoprolol tartrate 25 mg tablet 12.5 mg PO BID 09/23/21 04/26/22 omeprazole 20 mg capsule,delayed 20 mg PO QAM 09/23/21 04/26/22 release sertraline 100 mg tablet 200 mg PO DAILY 09/23/21 04/26/22 tamsulosin 0.4 mg capsule 0.4 mg PO DAILY 09/23/21 04/26/22 Allergies Allergy/AdvReac Type Severity Reaction Status Date / Time No Known Allergies Allergy Verified 04/26/22 09:07 Review of Systems Review of Systems: CONSTITUTIONAL: Denies malaise, chills, sweats, fever EYES: Denies visual changes, redness, or discharge ENT: Denies rhinorrhea, congestion, sinus pain, otalgia, sore throat CARDIOVASCULAR: Denies chest pain, palpitations, edema RESPIRATORY: Reports cough, post nasal drainage. Denies dyspnea GASTROINTESTINAL: Denies abdominal pain, nausea, vomiting, diarrhea SKIN: Denies rash or itching MUSCULOSKELETAL: denies myalgia NEUROLOGIC: Denies headache PMFSH Past Medical History Medical History Benign prostatic hyperplasia Cirrhosis Gastroesophageal reflux disease Hepatitis C Treated in 2007. Hyperlipidemia Hypertension Parkinsons disease Paroxysmal atrial fibrillation Prostate cancer Status post radiation seed implants. Type 2 diabetes mellitus Surgical History Surgical History History of bilateral cataract extraction History of shoulder surgery History of spinal surgery Lumbar and cervical fusions. Family History Family History Mother Acute myocardial infarction Father Colon cancer Social History Social History Social History: Surrogate decision maker: Giovana Ayers, . Code status: Full code. Smoking packs per day: 2 Smoking cigarettes per day: 40.0 Years smoked: 25 Smoking pack-years: 50.00 Smoking status: Former smoker Tobacco type: cigarettes Smoking end date: 05/21/79 Alcohol intake: former Alcohol use details: Very infrequent alcohol use. Substance use: never Additional living arrangements comments: The patient lives with his in [place]. 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 Spiritual care concerns: No Exam Narrative: Candice
== END 2022-04-26 10:11 | disposition home or self-care (01) ==
PROVIDERS: Emergency Provider Nurse Practitioner Family; PCP Internal Medicine
DX: J40 Bronchitis, not specified as acute or chronic (principal); Z87.891 Personal history of nicotine dependence; N40.0 Benign prostatic hyperplasia without lower urinary tract symptoms; K74.60 Unspecified cirrhosis of liver; K21.9 Gastro-esophageal reflux disease without esophagitis; E78.5 Hyperlipidemia, unspecified; I11.0 Hypertensive heart disease with heart failure; I50.9 Heart failure, unspecified; G20 Parkinson's disease; I48.0 Paroxysmal atrial fibrillation; E11.9 Type 2 diabetes mellitus without complications; Z85.46 Personal history of malignant neoplasm of prostate; Z98.42 Cataract extraction status, left eye; Z98.41 Cataract extraction status, right eye
CPT/HCPCS: 71046; 99213; G0463

== ENCOUNTER 2023-03-31 11:27 | Emergency (ER) | payer MEDICARE, OTHER, SELFPAY ==
--- NOTE | ~2023-03-31 | CT_ITS ---
EXAMINATION: CT pelvis wo con DATE: 03/31/2023 13:02 INDICATION: Bilateral hip pain. Fall. TECHNIQUE: Computed tomography (CT) of the pelvis was performed without intravenous contrast. Automat ed exposure control and iterative reconstruction technique were employed. The dose-length product was 1001.81 mGy-cm. COMPARISON: None FINDINGS: Partially visualized is a 4.2 cm cyst in left kidney. There is diverticulosis of the colon without evidence of diverticulitis. The bladder is distended. The prostate is mildly enlarged. There are brachytherapy seeds in the prostate. There is a right inguinal hernia containing fat. There are s urgical clips in the scrotum. Bone alignment is normal. There is ankylosis of the sacroiliac joints. There is moderate osteoarthritis of the hips. There is severe lumbar spondylosis. IMPRESSION: 1. Moderate osteoarthritis of the hips. Reviewed, dictated and finalized at location [facility]. [employer]
--- NOTE | ~2023-03-31 | CT_ITS ---
EXAMINATION: CT lumbar spine wo con DATE: 03/31/2023 13:02 INDICATION: Low back pain. Fall. TECHNIQUE: Computed tomography (CT) of the lumbar spine was performed without intravenous contrast. A utomated exposure control and iterative reconstruction technique were employed. The dose-length produ ct was 1227.67 mGy-cm. COMPARISON: None FINDINGS: There is 3 degrees levocurvature of lumbar spine. There is 3 mm anterolisthesis of L3 on L4 . There is mild chronic wedging of T11 and T12 vertebral bodies. There are bridging endplate osteophy josh from the thoracic spine to L1 and at L2-L3, consistent with diffuse idiopathic skeletal hyperosto sis (DISH). There is mildly decreased disc height at L1-L2, moderately decreased disc height at L3-L4 , and severely decreased disc height at L4-L5. There are chronic bilateral L3 pars defects. The follo wing disc levels are specifically discussed: L1-L2: The disc is bulging. There is moderate bilateral facet joint osteoarthritis. There is mild rig ht and moderate left neural foraminal stenosis. There is mild central canal stenosis. L2-L3: The disc does not extend beyond the endplate margin. There is severe bilateral facet joint ost eoarthritis. There is mild bilateral neural foraminal stenosis. There is no central canal stenosis. L3-L4: The disc is bulging. There is severe bilateral facet joint osteoarthritis. There is moderate r ight and severe left neural foraminal stenosis. There is moderate central canal stenosis. L4-L5: The disc is bulging. There is moderate and severe left facet joint osteoarthritis. There is se shahnaz bilateral neural foraminal stenosis. There is mild central canal stenosis with posterior decompr ession. L5-S1: The disc does not extend beyond the endplate margin. There is moderate right and severe left f acet joint osteoarthritis. There is mild left neural foraminal stenosis. There is no central canal st enosis. IMPRESSION: 1. Chronic bilateral L3 pars defects with grade 1 anterolisthesis of L3 on L4. 2. Severe lumbar spondylosis. 3. DISH. Reviewed, dictated and finalized at location A. O[employer]IC ADMINISTRATOR
[2023-03-31 11:34] VITALS: BP 128/74; PULSE 64; RESP 18; TEMP 36.6; O2SAT 96
--- NOTE | 2023-03-31 12:03 | ED.FALL ---
HPI - Fall General Chief Complaint: Fall Stated Complaint: fall/back pain Time Seen by Provider: 03/31/23 11:41 Source: patient Mode of arrival: wheelchair Limitations: no limitations History of Present Illness HPI Narrative: This is a 82 year old male that presents to the ER for low back pain and hip pain after a fall a couple of days prior. Reports he has history of Parkinson's and has frequent falls due to this. Reports he was standing up from the cough and told his he didn't need his walker. He lost his balance and fell backwards and landed on his right side. Reports since he has had low back pain and bilateral hip pain. Worse with movement and standing. He did not hit his head or lose consciousness. He is not on any blood thinners. Denies numbness or weakness. Related Data Home Medications Medication Instructions Recorded Confirmed buspirone 10 mg tablet 10 mg PO TID 09/23/21 04/26/22 carbidopa 25 mg-levodopa 100 mg 1.5 tablet PO TID 09/23/21 04/26/22 tablet cholecalciferol (vitamin D3) 75 75 mcg PO DAILY 09/23/21 04/26/22 mcg (3,000 unit) tablet clobetasol 0.05 % topical ointment 1 applic topical BID PRN Pain, Mild 09/23/21 04/26/22 cyanocobalamin (vitamin B-12) 1,000 mcg PO DAILY 09/23/21 04/26/22 1,000 mcg capsule diclofenac sodium 1 % topical gel 4 g topical QID 09/23/21 04/26/22 empagliflozin 25 mg tablet 12.5 mg PO DAILY 09/23/21 04/26/22 ezetimibe 10 mg tablet 10 mg PO DAILY 09/23/21 04/26/22 gabapentin 600 mg tablet 600 mg PO TID 09/23/21 04/26/22 glipizide 5 mg tablet 5 mg PO BID 09/23/21 04/26/22 lidocaine 5 % topical patch 1 patch topical DAILY PRN Pain 09/23/21 04/26/22 metformin 1,000 mg tablet 1,000 mg PO BID 09/23/21 04/26/22 metoprolol tartrate 25 mg tablet 12.5 mg PO BID 09/23/21 04/26/22 omeprazole 20 mg capsule,delayed 20 mg PO QAM 09/23/21 04/26/22 release sertraline 100 mg tablet 200 mg PO DAILY 09/23/21 04/26/22 tamsulosin 0.4 mg capsule 0.4 mg PO DAILY 09/23/21 04/26/22 Allergies Allergy/AdvReac Type Severity Reaction Status Date / Time No Known Allergies Allergy Verified 03/31/23 11:45 Review of Systems Review of Systems: CONSTITUTIONAL: Denies fever CARDIOVASCULAR: Denies chest pain MUSCULOSKELETAL: Reports back pain, joint pain, and myalgia. NEUROLOGIC: Denies numbness, or weakness. All systems reviewed & are unremarkable except as noted in HPI and below PMFSH Past Medical History Medical History Benign prostatic hyperplasia Cirrhosis Gastroesophageal reflux disease Hepatitis C Treated in 2007. Hyperlipidemia Hypertension Parkinsons disease Paroxysmal atrial fibrillation Prostate cancer Status post radiation seed implants. Type 2 diabetes mellitus Surgical History Surgical History History of bilateral cataract extraction History of shoulder surgery History of spinal surgery Lumbar and cervical fusions. Family History Family History Mother Acute myocardial infarction Father Colon cancer Social History Social History Social History: Surrogate decision maker: Giovana Ayers, . Code status: Full code. Smoking packs per day: 2 Smoking cigarettes per day: 40.0 Years smoked: 25 Smoking pack-years: 50.00 Smoking status: Former smoker Tobacco type: cigarettes Smoking end date: 05/21/79 Alcohol intake: former Alcohol use details: Very infrequent alcohol use. Substance use: never Additional living arrangements comments: The patient lives with his in [place]. 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 Spiritual care concerns: No Exam Narrative: GENERAL: Well-appearing, well-nourished, and in no acute distress. HEAD: Normocephalic, atraumatic. EYES: EOMI. CHEST:
== END 2023-03-31 13:54 | disposition home or self-care (01) ==
PROVIDERS: Emergency Provider Physician Assistant
DX: S39.92XA Unspecified injury of lower back, initial encounter (principal); S79.912A Unspecified injury of left hip, initial encounter; S79.911A Unspecified injury of right hip, initial encounter; G20.A1 Parkinson's disease without dyskinesia, without mention of fluctuations; I10 Essential (primary) hypertension; I48.0 Paroxysmal atrial fibrillation; E11.9 Type 2 diabetes mellitus without complications; E78.5 Hyperlipidemia, unspecified; K74.60 Unspecified cirrhosis of liver; N40.0 Benign prostatic hyperplasia without lower urinary tract symptoms; Z85.46 Personal history of malignant neoplasm of prostate; Z86.19 Personal history of other infectious and parasitic diseases; Z87.891 Personal history of nicotine dependence; Z98.42 Cataract extraction status, left eye; Z98.41 Cataract extraction status, right eye; Z98.1 Arthrodesis status; Z79.84 Long term (current) use of oral hypoglycemic drugs; W18.39XA Other fall on same level, initial encounter; M16.0 Bilateral primary osteoarthritis of hip; M47.816 Spondylosis without myelopathy or radiculopathy, lumbar region; M48.15 Ankylosing hyperostosis [Forestier], thoracolumbar region
CPT/HCPCS: 72131; 72192; 99284

== ENCOUNTER 2023-04-18 01:22 | Day surgery (SDC) | payer MEDICARE, OTHER, SELFPAY ==
[2023-04-17 14:06] VITALS: BMI 37.0
[2023-04-18 09:27] VITALS: BMI 33.7
[2023-04-18 09:34] VITALS: BP 157/74; PULSE 73; RESP 16; TEMP 36.5; O2SAT 93
--- NOTE | 2023-04-18 10:05 | WPDHPUPDATE1 ---
History and Physical Update Update Date/Time: 04/18/23 10:05 History and Physical has been reviewed, including an updated exam of the patient. There are NO changes in the patient's condition. Risks, benefits, and alternatives have been discussed and questions answered. Patient agrees to proceed with procedure.
--- NOTE | 2023-04-18 10:05 | WPDMODSED ---
Moderate Sedation Note-Pt Data Patient Data Diagnosis: Paroxysmal atrial fibrillation Present Complaint: None History and physical update: Patient is a very pleasant yet unfortunate 82-year-old male with past medical history significant for hypertension, hyperlipidemia, paroxysmal atrial fibrillation, Parkinson's disease with failed left atrial appendage closure device due to a shallow left atrial appendage with contraindication to anticoagulation due to frequent fall risk referred for loop recorder implantation to assess for recurrence of atrial fibrillation and/or flutter and determine need to proceed with considerations for surgical left atrial appendage occlusion to reduce embolic stroke risk. Impression: Paroxysmal atrial fibrillation and atrial flutter Contraindication anticoagulation due to frequent falls Parkinson's disease Diabetes mellitus Hypertension Recommendations: Loop recorder implantation Procedure to be performed/Plan: Loop recorder implantation Allergies Allergy/AdvReac Type Severity Reaction Status Date / Time No Known Allergies Allergy Verified 04/18/23 09:24 Home Medications Medication Instructions Recorded Confirmed Type carbidopa 25 mg-levodopa 100 mg 1 tablet PO TID 09/23/21 04/17/23 History tablet cholecalciferol (vitamin D3) 75 75 mcg PO DAILY 09/23/21 04/17/23 History mcg (3,000 unit) tablet clobetasol 0.05 % topical ointment 1 applic topical BID PRN Pain, Mild 09/23/21 04/17/23 History cyanocobalamin (vitamin B-12) 1,000 mcg PO DAILY 09/23/21 04/17/23 History 1,000 mcg capsule diclofenac sodium 1 % topical gel 4 g topical QID PRN Pain 09/23/21 04/17/23 History empagliflozin 25 mg tablet 25 mg PO DAILY 09/23/21 04/17/23 History ezetimibe 10 mg tablet 10 mg PO DAILY 09/23/21 04/17/23 History gabapentin 600 mg tablet 600 mg PO TID 09/23/21 04/17/23 History lidocaine 5 % topical patch 1 patch topical DAILY PRN Pain 09/23/21 04/17/23 History metformin 1,000 mg tablet 500 mg PO BID 09/23/21 04/17/23 History metoprolol tartrate 25 mg tablet 12.5 mg PO BID 09/23/21 04/17/23 History omeprazole 20 mg capsule,delayed 20 mg PO QAM 09/23/21 04/17/23 History release sertraline 100 mg tablet 100 mg PO DAILY 09/23/21 04/17/23 History tamsulosin 0.4 mg capsule 0.8 mg PO DAILY 09/23/21 04/17/23 History aspirin 81 mg chewable tablet 81 mg PO DAILY 04/17/23 04/17/23 History duloxetine 20 mg capsule,delayed 40 mg PO DAILY 04/17/23 04/17/23 History release hydrocodone 5 mg-acetaminophen 325 1 tablet PO Q6H PRN Pain 04/17/23 04/17/23 History mg tablet lisinopril 5 mg tablet 2.5 mg PO QAM 04/17/23 04/17/23 History Current Medications: See outside list Sedation/Anesthesia: No previous sedation/anesthesia problems (including family history). [facility] Past Medical History Medical History Benign prostatic hyperplasia Cirrhosis Gastroesophageal reflux disease Hepatitis C Treated in 2007. Hyperlipidemia Hypertension Parkinsons disease Paroxysmal atrial fibrillation Prostate cancer Status post radiation seed implants. Type 2 diabetes mellitus Surgical History Surgical History History of bilateral cataract extraction History of shoulder surgery History of spinal surgery Lumbar and cervical fusions. Family History Family History Mother Acute myocardial infarction Father Colon cancer Social History Social History Social History: Surrogate decision maker: Giovana Ayers, . Code status: Full code. Smoking packs per day: 2 Smoking cigarettes per day: 40.0 Years smoked: 25 Smoking pack-years: 50.00 Smoking status: Former smoker Tobacco type: cigarettes Smoking end date: 05/21/79 Alcohol intake: never Alcohol use details: Musa
--- NOTE | 2023-04-18 10:14 | W.PM.PROC2 ---
Procedure Note - Detailed Date of Procedure 04/18/23 Pre-op Diagnosis Atrial fibrillation, paroxysmal Post-op Diagnosis Same Procedure Performed Loop recorder implantation Surgeon Lisandro Loera MD Anesthesia Local Indications Paroxysmal atrial fibrillation Findings Brief History of Present Illness: Patient is a very pleasant yet complicated 82-year-old male with a history of diabetes mellitus, hypertension, frequent falls, history of paroxysmal atrial fibrillation and/or flutter with contraindication to anticoagulation and failed ambulant atrial appendage device deployment without recently identified atrial fibrillation referred for loop recorder implantation to assess for AFib/flutter burden and justification for referral for surgical left atrial appendage occlusion. Description of Procedure After verbal and written informed consent was obtained from the patient risks, benefits, and alternatives explained in detail the patient agreed to proceed with the plan of care as outlined above. Patient was evaluated at bedside in the [facility] procedure room. Patient was placed the appropriate supine position. Left anterior chest wall was prepped and draped in the usual sterile fashion. Operators in appropriate sterile garb. The left 4th intercostal space was identified and marked. Utilizing approximately 29 cc of 1% subcutaneous lidocaine the left anterior chest wall was then locally anesthetized. After local anesthesia was achieved, 2 fingerbreadths left of the sternum at the 4th intercostal space was again identified and a 1 cm incision was made with the included skin punch tool. Following this with the included introducer, a tract was made subcutaneously at a 45 degree angle from the sternum. The introducer was then inverted 180 degrees and with the included plunger the Medtronic REVEAL LINQ II loop recorder was advanced subcutaneously into position easily and without complication. The plunger was then removed followed by the introducer. Manual pressure was held for least 5-10 min with excellent hemostasis. The device was then interrogated and revealed excellent fidelity and measured at 0.24mV. The Medtronic REVEAL LINQ II SN [id number] was implanted without complication. The incision was then approximated and closed using Exofin skin adhesive. The incision was then covered with a sterile dressing. Complications: None Implants Medtronic implantable loop recorder Estimated Blood Loss 0 IV Fluids 0 Drains No Packing No Pathology None sent Complications No immediate complications Condition Stable Disposition Same day
== END 2023-04-18 11:15 | disposition home or self-care (01) ==
PROVIDERS: Visit Provider Internal Medicine Cardiovascular Disease
PROC: (CPT 33285; principal; 2023-04-18 10:00)
DX: I48.0 Paroxysmal atrial fibrillation (principal); E11.9 Type 2 diabetes mellitus without complications; I10 Essential (primary) hypertension
CPT/HCPCS: 33285; C1764

== ENCOUNTER 2025-03-17 13:14 | Outpatient (CLI) | payer MEDICARE, SELFPAY ==
--- NOTE | ~2025-03-17 | CT_ITS ---
EXAMINATION: CT abdomen pelvis wo/w con DATE: 03/17/2025 14:04 INDICATION: Gross hematuria. TECHNIQUE: Computed tomography (CT) of the abdomen and pelvis was performed without and with intravenous contrast using a total of 130 mL Omnipaque-350 intravenous contrast with a double-bolus technique for simultaneous opacification of the renal parenchyma and renal collecting system. Automated exposure control and iterative reconstruction technique were employed. The dose- length product was 2978.57 mGy-cm. COMPARISON: CT pelvis 03/31/23 FINDINGS: The visualized portions of lung bases demonstrate mild atelectasis. No pleural effusion. The heart size is normal. There are coronary artery calcifications. No pericardial effusion. Calcifications in the liver consistent with old granulomatous disease. There is hypodensity at the margin of the spleen with thickness of 13 mm, likely old hematoma. The gallbladder, pancreas, and adrenal glands are normal. There are cysts in the kidneys measuring up to 3.6 cm on the left. There is no urolithiasis. The ureters are well opacified and are normal. There are radiopaque markers in the prostate. There is diffuse bladder wall thickening. There is diverticulosis of the colon without evidence of diverticulitis. There are no dilated loops of bowel. The appendix is normal. There are no pathologically enlarged lymph nodes. There is no free intraperitoneal fluid. There is severe thoracic spondylosis. There are chronic bilateral L3 pars defects. There is 3 mm anterolisthesis of L3 on L4. There are bridging endplate osteophytes at multiple levels in the thoracic spine, consistent with diffuse idiopathic skeletal hyperostosis (DISH). IMPRESSION: 1. Diffuse bladder wall thickening, which may be secondary to chronic outlet obstruction. 2. Hypodensity at the margin of the spleen, likely old hematoma. Reviewed, dictated and finalized at location E. IMPRESSION: 1. Diffuse bladder wall thickening, which may be secondary to chronic outlet ob struction. 2. Hypodensity at the margin of the spleen, likely old hematoma.
[2025-03-17 13:48] LABS: Estimated Glomerular Filt Rate 53
--- OUTSIDE RECORDS SUMMARY | 2025-03-17 15:14 | XMS_ITS | Clinical Summary ---
Author Organization [facility] Address [address] [place] [address] Care Team Providers Care Packing And Wrapping Supervisor Name Role Phone Regulo JORGENSEN MD, Bonilla Harvey Primary Care Provider [phone] Source Comments [facility],non-owned Affiliates and Associated Physician Practices is amultiple site organization consisting of ambulatory clinics and hospital sitesin [place], [place], [place] and [place]. This disclosure is being madepursuant to the Care Everywhere program and may not contain all information available regarding this patient. Last updated 18.[facility] Allergies Active Allergy Reactions Criticality Noted Date Comments Rosiglitazone Hepatic Injury High 01/24/2006 Medications * Be aware that medications may not be up to date on this document. Alwaysverify current medications with the patient. carbidopa-levod opa, disintegrating, (PARCOPA) 25-100 MG tablet Take 1.5 (one and one-half) tablets by mouth 3 times daily Active lisinopril (PRINIVIL; ZESTRIL) 40 MG tablet 5 mg once daily Acti ve Cyanocobalamin 1000 MCG 1 tablet once daily Active omeprazole (PRILOSEC) 20 MG capsule Take 1 (one) capsule by mouth daily before breakfast Active sertraline (ZOLOFT) 100 MG tablet Take 2 (two) tablets by mouth once daily 9 Active vitamin D3-cholecalcife rol (CHOLECACIFEROL ) 1000 UNITS tablet Take 3 (three) tablets by mouth once daily Active tamsulosin (FLOMAX) 0.4 MG capsuleIndicati ons:Chronic Prostatitis Take 1 (one) capsule by mouth Reasons: Chronic Prostate Gland Inflammation 1 Active metFORMIN (GLUCOPHAGE) 1000 MG tablet Take 1 tablet by mouth 2 times daily with morning and evening meal 120 tablet 5 0 Active Additional Information Patient taking differently: 500 mgOral 2 TIMES DAILY WITH MEALS, Reported on 12/31/2023 busPIRone (BUSPAR) 10 MG tablet Take 2 (two) tablets by mouth 3 times daily Active clindamycin (CLEOCIN T) 1 % solution Apply to affected area 2 times daily Active digoxin (LANOXIN) 0.25 MG tabletIndicatio ns:Congestive Heart Failure Take 1 (one) tablet by mouth once daily Reasons: Congestive Heart Failure Active fluocinonide (LIDEX) 0.05 % solution Apply to affected area 2 times daily Active gabapentin (NEURONTIN) 300 MG capsule Take 2 (two) capsules by mouth 3 times daily Active ketoconazole (NIZORAL) 2 % shampoo Apply to affected area once daily Active metoprolol succinate XL 24hr (TOPROL XL) 25 MG tabletIndicatio ns:Heart Failure,Hyperte nsion Take 0.5 (one-half) tablet by mouth 2 times daily Reasons: Cardiac Failure, High Blood Pressure Disorder Active clobetasol (TEMOVATE) 0.05 % ointment Apply to affected area 2 times daily Active glucose (DEX4) 4 g chew tablet Take 1 (one) tablet by mouth as needed for Other Active acetaminophen-c odeine (TYLENOL #3) 300-30 MG tablet Take 1 (one) tablet by mouth every 6 hours as needed for Pain Active empagliflozin (JARDIANCE) 10 MG tablet Take 1 (one) tablet by mouth once daily Active ezetimibe (ZETIA) 10 MG tablet Take 1 (one) tablet by mouth once daily 1 Active furosemide (LASIX) 40 MG tablet Take 1 (one) tablet by mouth 2 times daily 2 Active HYDROcodone-clay taminophen (Enola) 5-325 MG tablet HYDROCODONE 5MG/ACETAMINOPHEN 325MG TAB Active TAKE 1 TABLET BY MOUTH ONCE A DAY NEEDED CAUTION: DO NOT EXCEED 4000MG PER DAY ACETAMINOPHEN (APAP) FROM ALL MEDS. FOR PAIN Dec 18, 2023Jan 17, [id number] Dec 18, [address] [facility] Active Active Problems Problem Noted Date Diagnosed Date Recurrent major depressive disorder, in remissio n 10/03/2021 Diabetic polyneuropathy asso ciated with type 2 diabetes mellitus 10/03/2021 Peripheral vascular disease 10/03/2021 Chronic hepatitis C without hepatic coma 022 Parkinson disease 03/30/2015 Tremor 08/18/2014 Type 2 diabetes mellitus without complication Overview (02/18/2025): IMO 02/18/2025 Arthritis 07/03/2012 H/O calcium pyrophosphate deposition disease (CP PD) 07/03/2012 Hematuria 03/08/2011 Cough due to angiotensin-converting enzyme inhib itor 03/07/2011 Radiation cystitis 03/07/2011 Radiation proctitis 09/01/2010 Benign prostatic hyperplasia 08/06/2009 Overview (11/19/2018): Overview: ICD-10 update Depression 08/06/2009 Essential hypertension 03/09/2009 Hyperlipidemia 03/09/2009 Prostate cancer 03/09/2009 Hepatic cirrhosis Overview (08/03/2021): 08/01/21 Fibroscan CAP 400, LSM 17.3 kPa Gastroesophageal reflux disease without esophagi tis Colon cancer screening Immunizations Immunization Administration Dates Next Due INFLUENZA VACCINE, TRIV. (AF LURIA, FLUZONE TRIVALENT; 6MO+) (IIV3) 02/18/2010 Covid Pfizer primary Monoval ent 12+ yr 0.3ml 09/15/2021 Covid Pfizer primary monoval ent 12+ yr 0.3mL Purple cap 03/12/2021,07/20/2020,06/29/2020 FLU VACCINE TRI IIV3 SPLIT P F IM (FLUVIRIN) 02/16/2015 HEP A/HEP B 06/18/2006,12/11/2005,11/17/2005 INFLUENZA A [id number] VACCINE 03/21/2009 INFLUENZA VACCINE 02/15/2021, 7,02/12/2014,2012,02/13/2012,01/19/2011,12/30/2010,0 01/29/2010,02/02/2009,03/26/2008, 007,03/12/2006 INFLUENZA VACCINE, HIGH-DOSE , QUADR. (FLUZONE HIGH-DOSE QUADRIVALENT; 65Y+), 0.7 ML (HD-IIV4) 02/17/2022,01/31/2021,01/27/2020,2013 INFLUENZA VACCINE, QUADR. (F LUZONE; FLULAVAL; FLUARIX; AFLURIA QUADRIVALENT; 6MO+), 0.5 ML (IIV4) 02/13/2018 PNEUMOCOCCAL PPSV23 02/18/2010 PNEUMOCOCCAL PPV VACCINE 05/18/2008 TD VACCINE 01/14/2008 ZOSTER VACCINE, LIVE 05/17/2010 Zoster Hzv Vacc Recombinant Inj Im 11/04/2020, Family History Medical History Relation Name Comments Colon Cancer after age 50 or unknown Father at 52 Relation Name Status Comments Father Social History Tobacco Use Types Packs/Day Years Used Date Smoking Tobacco: Former Cigarettes Q uit: 1995 Smokeless Tobacco: Never Alcohol Use Standard Drinks/Week Comments Not Currently 0 (1 standard drink = 0.6 oz pur e alcohol) ~one occasion/month PHQ-2 Answer Date Recorded PHQ2 TOTAL SCORE 0 10/03/2021 Sex and Gender Information Value Date Recorded Sex Assigned at Not on file 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 Gender Identity Not on file Sexual Orientation Not on file Last Filed Vital Signs Vital Sign Reading Time Taken Comments Blood Pressure 135/63 12/31/2023 10:39 AM CDT Pulse 67 12/31/2023 10:39 AM CDT Temperature 36.6 C (97.9 F) 12/31/2023 10:39 AM CDT Respiratory Rate 20 10/31/2022 9:03 AM CDT Oxygen Saturation 96% 12/31/2023 10:39 AM CDT Inhaled Oxygen Concentration - - Weight 113.9 kg (251 lb) 12/31/2023 10:39 AM CDT Height 177.8 cm (5' 10) 12/31/2023 10:39 AM CDT Body Mass Index 36.01 12/31/2023 10:39 AM CDT Plan of Treatment Health Maintenance Due Date Last Done Comments DIABETES-STATIN 1982 PNEUMOCOCCAL VACCINE 50+ (2 of 2 - PCV) 02/18/2011 02/18/2010, 05/18/2008 Respiratory Syncytial Virus (RSV) Vaccine Pt: or over 60 yrs (1 - 1-dose 75+ series) 2017 DTAP/TDAP/TD VACCINES (2 - Td or Tdap) 01/13/2018 01/14/2008 DIABETES-FOOT EXAM WITH MONOFILAMENT 12/22/2020 12/23/2019, 11/19/2018 DIABETES-HGB A1C 04/05/2022 10/03/2021, 12/2019, 12/23/2019, Additional history exists DEPRESSION SCREENING 05/21/2024 02/07/2022 DIABETES - URINE PROTEIN SCREENING 05/21/2024 08/20/2014 MEDICARE AWV CALENDAR YEAR 2024 10/03/2021, 03/04/2019 DIABETES-SERUM CREATININE 05/31/20242023, 10/31/2022, 02/07/2022, Additional history exists COVID-19 VACCINE ( season) 2025 03/28/2022, 09/15/2021, 03/12/2021, Additional history exists INFLUENZA VACCINE (#1) 2025 , 02/16/2022, 02/15/2021, Additional history exists DIABETES RETINOPATHY SCREENING 09/30/2025 10/01/2023, 07/20/2019 (Done Outside Per Patient), 07/19/2018 (Done Outside Per Patient) HEPATITIS B VACCINE Completed 06/18/2006, 12/11/2005, 11/17/2005 ZOSTER VACCINE Completed 11/04/2020, 07/20, 05/17/2010 HIB VACCINE Aged Out No longer eligi ble based on patient's age to complete this topic HPV VACCINE Aged Out No longer eligi ble based on patient's age to complete this topic MENINGOCOCCAL (Group B) VACCINE SHARED DECISION-MAKING Aged Out No longer eligible based on patient's age to complete this topic MENINGOCOCCAL GROUPS A/C/Y/W VACCINE Aged Out No longer eligible based on patient's age to complete this topic Goals Goal Patient Goal Type Associated Problems Recent Progress Patient-Stated? Author Medication Management General On track( 024 10:37 AM CDT) No Socorro Stevenson, RN Note: Expected end date: Ongoing Interventions: Take all medications as prescribed Let your doctor know right away about any changes in your medications Make sure to request a refill of your medication at least one week prior to your last dose Procedures Procedure Name Priority Date/Time Associated Diagnosis Comments COMPREHENSIVE METABOLIC PANEL Routine 05/31/2023 9:10 AM [facility] Cirrhosis of liver without ascites, unspecified hepatic cirrhosis type HEMOGLOBIN A1C - POINT OF CARE (AMB) [facility] Routine 10/03/2021 Type 2 diabetes mellitus without complication, without long-term current use of insulin MICROALB/CREAT RATIO URINE RANDOM PANEL Routine 08/20/2014 8:09 AM CDT from Last 3 Months or Most Recently Relevant to Health Maintenance Results * (ABNORMAL) COMPREHENSIVE METABOLIC PANEL (05/31/2023 9:10 AM [facility]) BUN 26 7 - 26 mg/dL 05/31/2023 10:35 AM [facility] Creatinine 1.22(H) 0.71 - 1.16 mg/dL 05/31/2023 10:35 AM [facility]3] [facility]ORY [facility] Sodium 139 136 - 145 mmol/L 05/31/2023 10:35 AM [facility] Potassium 4.5 3.5 - 4.5 mmol/L 05/31/2023 10:35 AM [facility] Chloride 106 98 - 107 mmol/L 05/31/2023 10:35 AM [facility]3] [facility] CO2 21(L) 22 - 29 mmol/L 05/31/2023 10:35 AM [facility]3] [facility] Glucose 179(H) 70 - 115 mg/dL 05/31/2023 10:35 AM [facility] Calcium 9.7 8.4 - 10.2 mg/dL 05/31/2023 10:35 AM [facility] Protein Total 7.3 6.0 - 8.3 g/dL 05/31/2023 10:35 AM [facility] Albumin 3.8 3.4 - 5.0 g/dL 05/31/2023 10:35 AM [facility]3] [facility] Bilirubin Total 0.5 0.2 - 1.2 mg/dL 05/31/2023 10:35 AM [facility] Alkaline Phosphatase 128 40 - 150 U/L 05/31/2023 10:35 AM [facility] ALT 17 5 - 55 U/L 05/31/2023 10:35 AM [facility] AST 14 5 - 34 U/L 05/31/2023 10:35 AM [facility] Anion Gap 12 6 - 16 05/31/2023 10:35 AM [facility] BUN/Creatinine Ratio 21 7 - 23 05/31/2023 10:35 AM [facility] Osmolality Calculated 297(H) 275 - 295 mOsm/kg 05/31/2023 10:35 AM [facility] Albumin/Globulin Ratio 1.1 1.1 - 2.3 05/31/2023 10:35 AM [facility] eGFR by CKD-EPI 60(L) >=90 mL/min/1.7 3 m2 05/31/2023 10:35 AM [facility] Blood BLOOD SPECIMEN / Unknown Lab Venipuncture / Unknown 05/31/2023 9:10 AM [facility] 05/31/2023 9:36 AM [facility] Andrea Rutherford MD LAB - CHEMISTRY ORDERABLES Fin al Result [facility] [address] [place] [id number], [facility] [phone] * HEMOGLOBIN A1C - POINT OF CARE (AMB) [facility] (10/03/2021) Hemoglobin A1c POCT 7.3 % Blood BLOOD SPECIMEN / Unknown 10/03/2021 Fish Hawkins MD LAB - POINT OF CARE ORDER JOANNE Final Result * (ABNORMAL) MICROALB/CREAT RATIO URINE RANDOM PANEL (08/20/2014 8:09 AM CDT) Albumin Random Urine 128.0 Not Established mcg/mL [facility] Creatinine Urine 236 Not Established mg/dL [facility] Urine Albumin/Creati nine Ratio 54(H) <30 mg/g [facility] Urine specimen (specimen) URINE / Unknown 08/20/2014 8:09 AM CDT 08/20/2014 9:27 AM CDT Michael Allen MD LAB - URINE CHEMISTRY OR DERABLES Final Result [facility] [address] [phone] from Last 3 Months or Most Recently Relevant to Health Maintenance Insurance MEDICARE [employer] MEDICARE ADV MEDICARE Care Teams Packing And Wrapping Supervisor Relationship Specialty Start Date End Date Bonilla Rajput III, MD [address] [phone] PCP - General 05/31/22
--- OUTSIDE RECORDS SUMMARY | 2025-03-17 15:14 | XMS_ITS ---
Author Organization [facility] Address [address] [place] [address] Care Team Providers Care Director Online Marketing Name Role Phone Regulo JORGENSEN MD, Bonilla Harvey Primary Care Provider [phone] Active Problems Problem Noted Date Diagnosed Date [...] disease without esophagi tis Colon cancer screening Current Treatment and Therapy Plans No current plan information found. Past Treatment and Therapy Plans No past plan information found. Lifetime Dose Tracking * Chemical Lifetime Dose Automatic Entry Manual Entr y Dose Length Product 1,921 mGy-cm 1,921 mGy-cm 0 mGy-cm
--- OUTSIDE RECORDS SUMMARY | 2025-03-17 15:14 | XMS_ITS | Clinical Summary ---
Author Organization [facility] Address [address] [place] [id number] Care Team Providers Care Suture Polisher Name Role Phone Fish Hawkins MD Primary Care Provider [phone] Social History Tobacco Use Types Packs/Day Years Used Date Smoking Tobacco: Never Assessed Sex and Gender Information Value Date Recorded Sex Assigned at Not on file Legal Sex Male 2:30 PM CDT Gender Identity Not on file Sexual Orientation Not on file Plan of Treatment Health Maintenance Due Date Last Done Comments DTaP, Tdap and Td Vaccines ( 1 - Tdap) 1961 Zoster Vaccines (1 of 2) 1992 Annual Medicare Wellness Visit 10/07/2007 Pneumococcal Vaccine: 50+ Years (2 of 2 - PCV) 02/18/2011 02/18/2010 RSV Immunization or 60+ Years (1 - 1-dose 75+ series) 2017 COVID-19 Vaccine (2024-2 6 season) 2025 Influenza Adult (#1) 2025 02/13/2018, 02/18/2010 Hepatitis A Vaccines Aged Out No long er eligible based on patient's age to complete this topic Meningococcal B Vaccine Aged Out No l onger eligible based on patient's age to complete this topic Meningococcal Vaccine Aged Out No ifeanyi fermín eligible based on patient's age to complete this topic RSV Immunizations Under 20 Months Aged Out No longer eligible b ased on patient's age to complete this topic Insurance MEDICARE Care Teams Suture Polisher Relationship Specialty Start Date End Date Fish Hawkins MD [address] [facility] [place] [address] PCP - General INTERNAL MEDICINE 10/05/21
== END 2025-03-17 13:15 | disposition home or self-care (01) ==
LOC: ANHIMG 13:15
PROVIDERS: Visit Provider Physician Assistant
DX: R31.0 Gross hematuria (principal)
CPT/HCPCS: 74178; Q9967

== ENCOUNTER 2025-04-02 02:02 | Day surgery (SDC) | payer MEDICARE, SELFPAY ==
--- NOTE | 2025-04-01 11:10 | PC.NURSE ---
[facility] has started construction of its new state of the art ER which will open Spring 2026. With this, we anticipate parking may be a challenge for some our surgical patients and families. Parking spaces are limited but are available for all Surgical, obstetrics, and ER patients sharing this lot. If you arrive and find you are having a hard time finding a parking space, please note that we understand the challenges, please drive around the hospital and park near Hospital Entrance 1. When you enter this entrance, you can ask a volunteer to direct or take you back to the surgical waiting area to check in. We appreciate everyone?s understanding of these expected challenges while we build for your future. Report to the Outpatient Waiting Room, entrance under the green pavilion located off [address], at time _2:30 PM on date _04/02/25 . Planned Procedure Time: _4:30 PM .? Time changes happen often and if your time is changed the preop area will call you the afternoon before. - You and your visitor will be asked to self-screen and do not enter if you have any COVID symptoms. Please call surgeon if you need to reschedule. - A mask is optional within the hospital at this time. Patients may have clear liquids (water, carbonated beverages, clear teas, apple juice) until 3 hours prior to surgery(1:30PM) with a maximum of 20 ounces. - No food from midnight until time of surgery and no smoking, or chewing tobacco (or any form of nicotine). No chewing gum, candy or mints. - Take only the following medications with a SIP of water on the morning of surgery: _CARBIDOPA-LEVODOPA,DULOXETINE,GABAPENTIN,METOPROLOL,SERTRALINE DO NOT STOP ANY OF YOUR OTHER PRESCRIPTION MEDICATIONS PRIOR TO SURGERY EXCEPT THE FOLLOWING Hold all vitamins and supplements for 3 days per anesthesiologist. STATES LAST DOSE 03/31/25 Medications to discontinue per physician __WIFE STATES LAST DOSE 03/31/25_OF ASPIRIN Date to take last dose Please no make-up, nail [place], hairspray, perfume, deodorant, or body powder the day of surgery.? No jewelry (including any body piercings) or valuables the day of surgery, leave them at home.? Please take a shower or bath the night before, or the morning of, surgery with an antibacterial soap.? Wear comfortable, loose fitting clothing.? Children are encouraged to wear pajamas. - Jewelry must be removed prior to entering the operating room.? Rings and piercings that are not removed may be cut off. - The hospital will not accept responsibility for valuables.? - Please leave all valuables, including medications, at home the day of surgery. If you are going home after surgery, a licensed electric mule driver must drive you home.? - NO public transportation without another adult if you receive anesthesia. - We recommend that an adult stay with you for 24 hours following discharge. - We also recommend that you do not drive, make important decision, drink alcoholic beverages, or take any drugs that were not prescribed by your health care provider for at least 24 hours after your discharge time. For Pediatric surgeries, we recommend two adults accompany the child home. Follow any additional instructions given to you from your surgeon. Telephone instructions given to _WIFE and asked if any additional questions and then verbalized understanding. Patient advised to call surgeon office or pre surgery nurse liaison [phone] if any additional questions.
[2025-04-01 11:38] VITALS: BMI 33.7
--- NOTE | ~2025-04-02 | XR_ITS ---
EXAMINATION: XR fluoroscopy no charge DATE: 04/02/2025 15:26 INDICATION: Urethral dilation TECHNIQUE: Single frontal fluoroscopic image of the central pelvis was obtained procedure performed by Dr. Parr. Radiologist was not present for the imaging or procedure. The amount of fluoroscopy time used during this procedure was 1.0 minutes. The dose area product was 1.47 mGym^2. COMPARISON: None. FINDINGS: Image demonstrates a catheter and wire advanced through the urethra in the bladder. 3 small linear metallic densities project over the pubic bodies most likely surgical clips versus fiducial markers at the prostate. IMPRESSION: 1. Fluoroscopy utilized during urologic procedure. See procedure note for further detail. Reviewed, dictated and finalized at location A. GENCY ROOM SPECIALIST IMPRESSION: 1. Fluoroscopy utilized during urologic procedure. See procedure note for furth er detail.
--- NOTE | 2025-04-02 06:05 | WPDHPUPDATE1 ---
History and Physical Update Update Date/Time: 04/02/25 06:05 History and Physical has been reviewed, including an updated exam of the patient. There are NO changes in the patient's condition. Risks, benefits, and alternatives have been discussed and questions answered. Patient agrees to proceed with procedure.
--- NOTE | 2025-04-02 07:11 | ECG_ITS ---
Test Date: 2025-04-02 14:15:08 Measurements Intervals [place] Rate: 77 P: 40 VA: 169 QRS: -4 QRSD: 97 T: 86 QT: 362 QTc: 412 Interpretive Statements SINUS RHYTHM NONSPECIFIC T-WAVE ABNORMALITY No previous ECG available for comparison Electronically Signed On 04-02-2025 14:24:09 [employer] by Julio César Romero M.D.
--- NOTE | 2025-04-02 14:27 | WPDANESEPPF ---
Anes - Initial Pre Proc Eval Procedure: Operation Date: 04/02/25 16:30 Proposed Procedures p Cystoscopy, Urethral Dilatation - Jose Parr MD Date/Time: 04/02/25 14:27 Surgeon: Jose Parr MD Pre Op Diagnosis: tight bladder neck contracture Patient Data Age: 84 Gender: M Height: 1.78 m Weight: 106.6 kg Allergies Allergy/AdvReac Type Severity Reaction Status Date / Time No Known Allergies Allergy Verified 04/01/25 11:10 Home Medications ?Medication ?Instructions ?Recorded ?Confirmed ?Type carbidopa 25 mg-levodopa 100 mg 1 tablet PO TID 09/23/21 04/01/25 History tablet cholecalciferol (vitamin D3) 75 75 mcg PO DAILY 09/23/21 04/01/25 History mcg (3,000 unit) tablet clobetasol 0.05 % topical ointment 1 applic topical BID PRN Pain, Mild 09/23/21 04/01/25 History cyanocobalamin (vitamin B-12) 1,000 mcg PO DAILY 09/23/21 04/01/25 History 1,000 mcg capsule diclofenac sodium 1 % topical gel 4 g topical QID PRN Pain 09/23/21 04/01/25 History empagliflozin 25 mg tablet 25 mg PO DAILY 09/23/21 04/01/25 History ezetimibe 10 mg tablet 10 mg PO DAILY 09/23/21 04/01/25 History gabapentin 600 mg tablet 600 mg PO TID 09/23/21 04/01/25 History lidocaine 5 % topical patch 1 patch topical DAILY PRN Pain 09/23/21 04/01/25 History metformin 1,000 mg tablet 500 mg PO BID 09/23/21 04/01/25 History metoprolol tartrate 25 mg tablet 12.5 mg PO BID 09/23/21 04/01/25 History omeprazole 20 mg capsule,delayed 20 mg PO QAM 09/23/21 04/01/25 History release sertraline 100 mg tablet 100 mg PO DAILY 09/23/21 04/01/25 History tamsulosin 0.4 mg capsule 0.8 mg PO DAILY 09/23/21 04/01/25 History aspirin 81 mg chewable tablet 81 mg PO DAILY 04/17/23 04/01/25 History duloxetine 20 mg capsule,delayed 40 mg PO DAILY 04/17/23 04/01/25 History release hydrocodone 5 mg-acetaminophen 325 1 tablet PO Q6H PRN Pain 04/17/23 04/01/25 History mg tablet lisinopril 5 mg tablet 2.5 mg PO QAM 04/17/23 04/01/25 History empagliflozin 25 mg-metformin ER 1 tablet PO DAILY 04/01/25 04/01/25 History 1,000 mg tablet,extended release 24hr (Synjardy XR) folic acid 1 mg tablet 1,000 mcg PO DAILY 04/01/25 04/01/25 History omega 1-tfe-wxg-fish oil 1,000 mg 1 cap PO DAILY 04/01/25 04/01/25 History (120 mg-180 mg) capsule (Fish Oil) semaglutide 0.25 mg or 0.5 mg (2 0.5 mg subcut WEEKLY 04/01/25 04/01/25 History mg/3 mL) subcutaneous pen injector (Ozempic) Laboratory Tests 04/02/25 14:14 PT Pending INR Pending APTT Pending Sodium Pending Potassium Pending Chloride Pending Carbon Dioxide Pending Anion Gap Pending BUN Pending Creatinine Pending Estim Creat Clear Calc Pending Estimated GFR Pending Glucose Pending Calcium Pending Patient hx anesthesia problems: none Family hx anesthesia problems: none Results Review: All pre-operative results and documents have been reviewed as part of the pre-operative evaluation. [facility] Past Medical History Medical History Benign prostatic hyperplasia Cirrhosis Gastroesophageal reflux disease Hepatitis C Treated in 2007. Hyperlipidemia Hypertension Parkinsons disease Paroxysmal atrial fibrillation Prostate cancer Status post radiation seed implants. Type 2 diabetes mellitus Surgical History Surgical History History of bilateral cataract extraction History of shoulder surgery History of spinal surgery Lumbar and cervical fusions. Family History Family History Mother Acute myocardial infarction Father Colon cancer Social History Social History Social History: Surrogate decision maker: Giovana Ayers, . Code status: Full code. Smoking packs per day: 2 Smoking cigarettes per day: 40.0 Years smoked: 30 Smoking pack-years: 60.00 Smoking status: Former smoker Tobacco type: cigarettes Smoking end date: 05/21/79 Alcohol intake: never Alcohol use details: Very infrequent alcohol use. Substance use: never Substance use type: does not use Last use: 1987 Living arrangements: with family Additional living arrangements comments: The patient lives with his in [place]. 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 Spiritual care concerns: No Anes - Eval Final PreProcedure Day of Procedure 04/02/25 14:27 Patient weight: obese Heart: regular rate and rhythm Lungs: clear to auscultation Airway: Mallampati scale class II Neurological: alert and oriented Last oral intake: >/= 8 hours ASA classification: IV Emergent: no Anesthetic plan: proceed Anesthesia type and monitoring: general GIVS and standard monitoring Results Review: All pre-operative results and documents have been reviewed as part of the pre-operative evaluation. Informed Consent: The patient's anesthetic plan and its attendant risks and benefits were discussed with the patient/family/POA. Questions were solicited and answers provided to the satisfaction of the patient/family/POA.
[2025-04-02 14:30] VITALS: BP 130/76; PULSE 75; RESP 16; TEMP 36.8; O2SAT 92
[2025-04-02 14:34] LABS: Anion Gap 11 mmol/L (4-12); Blood Urea Nitrogen 27 mg/dL (9-20); Calcium 10.2 mg/dL (8.4-10.2); Carbon Dioxide 24 mmol/L (22-30); Chloride 102 mmol/L (98-107); Estimated CRCL calculation 49 ml/min; Estimated Glomerular Filt Rate 54; Glucose 147 mg/dL (65-110); Potassium 4.7 mmol/L (3.4-5.0); Sodium 137 mmol/L (137-145)
[2025-04-02 14:37] LABS: INR 1.0; Prothrombin Time 13.1 Seconds (11.1-14.7)
[2025-04-02 14:38] LABS: Partial Thromboplastin Time 31.6 Seconds (22.3-36.8)
--- NOTE | 2025-04-02 14:56 | PM.HPGS ---
History of Present Illness History of Present Illness Consent: Risks, benefits, and alternatives have been discussed and questions answered. Patient agrees to proceed with procedure. Chief complaint: tight bladder neck contracture Narrative: Dante Ayers is a 84 year old male with a history of multiple recurrent urethral strictures was recently seen with obstructive symptoms and an elevated PVR. Cystoscopy in the office shows a pinpoint bulbous urethral stricture. After discussion of options he elects for cystoscopy with urethral dilatation. He is aware that he will likely be a [place] catheter for several days postoperatively and is aware of the risk of potential recurrence. Review of Systems Review of Systems: All systems reviewed & are unremarkable except as noted in HPI and below PMFSH Past Medical History Medical History Benign prostatic hyperplasia Cirrhosis Gastroesophageal reflux disease Hepatitis C Treated in 2007. Hyperlipidemia Hypertension Parkinsons disease Paroxysmal atrial fibrillation Prostate cancer Status post radiation seed implants. Type 2 diabetes mellitus Surgical History Surgical History History of bilateral cataract extraction History of shoulder surgery History of spinal surgery Lumbar and cervical fusions. Family History Family History Mother Acute myocardial infarction Father Colon cancer Social History Social History Social History: Surrogate decision maker: Giovana Ayers, . Code status: Full code. Smoking packs per day: 2 Smoking cigarettes per day: 40.0 Years smoked: 30 Smoking pack-years: 60.00 Smoking status: Former smoker Tobacco type: cigarettes Smoking end date: 05/21/79 Alcohol intake: never Alcohol use details: Very infrequent alcohol use. Substance use: never Substance use type: does not use Last use: 1987 Living arrangements: with family Additional living arrangements comments: The patient lives with his in [place]. 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 Spiritual care concerns: No Meds Home Medications and Allergies Home Medications ?Medication ?Instructions ?Recorded ?Confirmed ?Type carbidopa 25 mg-levodopa 100 mg 1 tablet PO TID 09/23/21 04/02/25 History tablet cholecalciferol (vitamin D3) 75 75 mcg PO DAILY 09/23/21 04/02/25 History mcg (3,000 unit) tablet clobetasol 0.05 % topical ointment 1 applic topical BID PRN Pain, Mild 09/23/21 04/01/25 History cyanocobalamin (vitamin B-12) 1,000 mcg PO DAILY 09/23/21 04/02/25 History 1,000 mcg capsule diclofenac sodium 1 % topical gel 4 g topical QID PRN Pain 09/23/21 04/01/25 History empagliflozin 25 mg tablet 25 mg PO DAILY 09/23/21 04/01/25 History ezetimibe 10 mg tablet 10 mg PO DAILY 09/23/21 04/01/25 History gabapentin 600 mg tablet 600 mg PO TID 09/23/21 04/02/25 History lidocaine 5 % topical patch 1 patch topical DAILY PRN Pain 09/23/21 04/01/25 History metformin 1,000 mg tablet 500 mg PO BID 09/23/21 04/01/25 History metoprolol tartrate 25 mg tablet 12.5 mg PO BID 09/23/21 04/02/25 History omeprazole 20 mg capsule,delayed 20 mg PO QAM 09/23/21 04/01/25 History release sertraline 100 mg tablet 100 mg PO DAILY 09/23/21 04/01/25 History tamsulosin 0.4 mg capsule 0.8 mg PO DAILY 09/23/21 04/01/25 History aspirin 81 mg chewable tablet 81 mg PO DAILY 04/17/23 04/02/25 History duloxetine 20 mg capsule,delayed 40 mg PO DAILY 04/17/23 04/02/25 History release hydrocodone 5 mg-acetaminophen 325 1 tablet PO Q6H PRN Pain 04/17/23 04/01/25 History mg tablet lisinopril 5 mg tablet 2.5 mg PO QAM 04/17/23 04/02/25 History empagliflozin 25 mg-metformin ER 1 tablet PO DAILY 04/01/25 04/02/25 History 1,000 mg tablet,extended release 24hr (Synjardy XR) folic acid 1 mg tablet 1,000 mcg PO DAILY 04/01/25 04/02/25 History omega 7-icm-wbf-fish oil 1,000 mg 1 cap PO DAILY 04/01/25 04/02/25 History (120 mg-180 mg) capsule (Fish Oil) semaglutide 0.25 mg or 0.5 mg (2 0.5 mg subcut WEEKLY 04/01/25 04/02/25 History mg/3 mL) subcutaneous pen injector (Ozempic) Allergies Allergy/AdvReac Type Severity Reaction Status Date / Time No Known Allergies Allergy Verified 04/02/25 14:50 Vital Signs Vital Signs - 24 hr 04/02/25 14:30 Temperature 98.2 F Pulse Rate 75 Respiratory Rate 16 Blood Pressure 130/76 Pulse Oximetry 92 Oxygen Delivery Room Air Exam Const: General: no acute distress Resp: Effort & Inspection: normal respiratory effort GI: Inspection: non-distended GI Palp: No abdominal tenderness and No Guarding due to palpation present (GI) Auscultation: normal bowel sounds Assessment and Plan Assessment and plan (1) Urethral stricture: Code(s): N35.919 - Unspecified urethral stricture, male, unspecified site Status: Acute Assessment and Plan: Cystoscopy with urethral dilatation
[2025-04-02] MEDS: ceFAZolin 2 GM in SODIUM CHLORIDE 0.9% IV 50 ML 100 ML IVPB (15:01)
[2025-04-02] MEDS: LACTATED RINGERS 1,000 ML 30 ML IV CONT (15:01)
[2025-04-02] MEDS: LIDOCAINE 2% GEL UROJET 10 ML PKG MUCOUS MEM (15:08)
[2025-04-02 15:23] VITALS: BP 97/62; PULSE 79
[2025-04-02 15:53] VITALS: BP 142/76; PULSE 74
--- NOTE | 2025-04-02 16:03 | P.OP_ITS ---
Procedure Note - Detailed Date of Procedure 04/02/25 Pre-op Diagnosis Tight bladder neck contracture Post-op Diagnosis Same Procedure Performed Cystoscopy, urethral dilatation, complex urethral catheter placement Surgeon Jose Parr MD Anesthesia MAC Description of Procedure Patient is brought to the operative suite was prepped draped in routine sterile fashion while in dorsal lithotomy position after placement of 2% xylocaine jelly in the urethra and administration of systemic sedation per the anesthesia department. Cystoscopy was undertaken with a 19 F rigid cystoscope. He has a very tight bladder neck contracture. I was able to negotiate the stricture with a 0.035 in glidewire under fluoroscopy. With the wire in the bladder I dilated the bladder neck contracture from 8 F to 26 F with urethral dilators and placed a 20 F [place] catheter. Repeat cystoscopy prior to catheter placement showed an absence of prostatic tissue. The bladder was mildly trabeculated without intravesical foreign body neoplasm. Patient tolerated the procedure was taken recovery room good condition Drains Yes Packing No Pathology None sent Complications No immediate complications
[2025-04-02 16:23] VITALS: BP 131/62; PULSE 70
[2025-04-02] MEDS: oxyCODONE HCL (*CRX) 5 MG TAB IR PO (16:33)
== END 2025-04-02 16:44 | disposition home or self-care (01) ==
PROVIDERS: Anesthesiology; Visit Provider Urology
PROC: 0T7D8ZZ Dilation of Urethra, Via Natural or Artificial Opening Endoscopic (ICD-10-PCS; CPT 52281; principal; 2025-04-02 16:30)
DX: N32.0 Bladder-neck obstruction (principal); N35.912 Unspecified bulbous urethral stricture, male; I48.0 Paroxysmal atrial fibrillation; E11.9 Type 2 diabetes mellitus without complications; Z85.46 Personal history of malignant neoplasm of prostate; Z87.891 Personal history of nicotine dependence; E66.9 Obesity, unspecified; Z68.34 Body mass index [BMI] 34.0-34.9, adult
CPT/HCPCS: 52281; 36415; 51610; 74450; 80048; 82948; 85610; 85730; 93005; 99199; J0690; A9270; J2704; J7120